=== PATIENT | female | born 1965 | race Caucasian/White ===

== ENCOUNTER → 2019-05-15 12:29 | Outpatient (CLI) | payer BC, SELFPAY ==
--- NOTE | 2019-05-15 12:39 | XR_ITS ---
PROCEDURE: XR RIBS LT MIN 3V W CXR1V CLINICAL INDICATION: LT RIB PAIN Chronic coughing with left rib pain COMPARISON: No exams were available for comparison FINDINGS: Unremarkable cardiovascular structures. There is mild biapical pleural thickening. There is a nondisplaced fracture involving the anterolateral aspect of the left 7th rib. No other abnormalities are apparent. IMPRESSION: Nondisplaced fracture left 7th rib Dictated by: Raul Jackson MD 05/15/2019 13:39 Electronically signed by Raul Jackson MD in [place] 05/15/2019 13:39
== END ==
PROVIDERS: PCP Nurse Practitioner; Visit Provider Nurse Practitioner
DX: R07.81 Pleurodynia (principal)
CPT/HCPCS: 71101

== ENCOUNTER → 2019-07-28 12:17 | Outpatient (CLI) | payer BC, SELFPAY ==
--- NOTE | 2019-07-28 12:21 | CA_ITS ---
APPROVED REPORT Bilateral Lower Extremity Venous Study for DVT. Battery Wrecker Operator: KEVIN Indications Lower Extremity Pain: PAIN Vein Imaging CFV (L): compressive, spontaneous, phasic, augmentation SFJ (L): compressive, spontaneous, phasic, augmentation FEM (L): compressive, spontaneous, phasic, augmentation POP (L): compressive, spontaneous, phasic, augmentation DFV (L): compressive, spontaneous, phasic, augmentation PTV (L): compressive, spontaneous, phasic, augmentation GSV (L): Compressible Findings No evidence of DVT or superficial thrombophlebitis in the veins scanned of the left lower extremity. Reported to Yuridia's office Conclusion No evidence of DVT or superficial thrombophlebitis in the veins scanned of the left lower extremity. Electronically signed by : Raul Jackson MD 07/28/2019 15:45:29
== END ==
PROVIDERS: PCP Family Medicine; Visit Provider Family Medicine
DX: M79.605 Pain in left leg (principal)
CPT/HCPCS: 93971

== ENCOUNTER → 2019-08-27 12:28 | Outpatient (CLI) | payer BC, SELFPAY ==
--- NOTE | 2019-08-27 12:35 | XR_ITS ---
PROCEDURE: XR KNEE LT 3V CLINICAL INDICATION: ACUTE LT KNEE PAIN COMPARISON: No exams were available for comparison FINDINGS: No fracture or dislocation. No lytic or blastic change. There is normal mineralization. There is minimal decrease in the joint space medially suggesting minimal osteoarthritic change. Minimal spurring noted of the superior patella Other findings:None. IMPRESSION: Minimal osteoarthritic change Dictated by: Raul Jackson MD 08/27/2019 15:41 Electronically signed by Raul Jackson MD in [facility] 08/27/2019 15:41
== END ==
PROVIDERS: PCP Family Medicine; Visit Provider Family Medicine
DX: M25.562 Pain in left knee (principal)
CPT/HCPCS: 73562

== ENCOUNTER → 2019-09-19 12:24 | Outpatient (CLI) | payer BC, SELFPAY ==
--- NOTE | 2019-09-19 12:29 | XR_ITS ---
PROCEDURE: XR KNEE LT 4V CLINICAL INDICATION: knee pain COMPARISON: XR KNEE LT 3V from 08/27/2019 FINDINGS: No fracture or dislocation. No lytic or blastic change. There is normal mineralization. There is minimal spurring of the patella posteriorly and superiorly and slight decrease in the joint space medially. Other findings:There may be a small suprapatellar effusion IMPRESSION: Minimal osteoarthritic changes with possible small knee joint effusion Dictated by: Raul Jackson MD 09/19/2019 13:04 Electronically signed by Raul Jackson MD in [facility] 09/19/2019 13:04
== END ==
PROVIDERS: PCP Family Medicine; Visit Provider Orthopaedic Surgery
DX: M25.562 Pain in left knee (principal)
CPT/HCPCS: 73564

== ENCOUNTER → 2020-04-30 15:11 | Outpatient (CLI) | payer BC, SELFPAY ==
--- NOTE | 2020-04-30 15:16 | CA_ITS ---
APPROVED REPORT Left Lower Extremity Venous Study for DVT. Bushing Press Operator: Padmini Willis RVT Indications Lower Extremity Pain: Left Current Smoker PAIN BACK OF LEFT KNEE Risk Factors Current Smoker Vein Imaging CFV (L): compressive, spontaneous, phasic, augmentation FEM (L): compressive, spontaneous, phasic, augmentation POP (L): compressive, spontaneous, phasic, augmentation PTV (L): Compressible GSV (L): Compressible Peroneals (L):Compressible GAS (L): Compressible Findings Study suggests no evidence of DVT of the left lower extremity. Study suggests no evidence of SVT of the left lower extremity. 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 Conclusion Study suggests no evidence of DVT of the left lower extremity. Study suggests no evidence of SVT of the left lower extremity. 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 Critical Notification Physician Notified Date: 04/30/2020 Time: 15:47 Physician Name: Sherlyn Doss Electronically signed by : Raul Jackson MD 04/30/2020 17:30:07
== END ==
PROVIDERS: PCP Family Medicine; Visit Provider Nurse Practitioner
DX: M25.562 Pain in left knee (principal)
CPT/HCPCS: 93971

== ENCOUNTER → 2020-08-17 12:22 | Outpatient (CLI) | payer BC, SELFPAY ==
--- NOTE | 2020-08-17 12:30 | XR_ITS ---
PROCEDURE: XR CHEST PORTABLE CLINICAL HISTORY: COVID SCREENING COMPARISON: CR XR RIBS LT MIN 3V W CXR1V from 05/15/2019 CR XR CHEST 2V from 07/19/2019 FINDINGS: The cardiomediastinal silhouette and pulmonary vascularity are within normal limits. COPD with biapical fibrotic changes. No lobar consolidation. No acute bony abnormalities. IMPRESSION: COPD with chronic changes, no acute finding Dictated by: Raul Jackson MD 08/17/2020 14:58 Raul Jackson MD in [facility] 08/17/2020 14:58
[2020-08-17 13:58] LABS: Basophils % 0.5 % (0.1-2.0); Eosinophils # 0.1 K/mm3 (0.0-0.4); Eosinophils % 0.8 % (0.1-12.0); Hematocrit 43.2 % (37.0-47.0); Lymphocytes # 1.1 K/mm3 (0.7-4.5); Lymphocytes % 17.6 % (10-50); Mean Corpuscular HGB Conc 32.5 g/dL (31.8-35.4); Mean Corpuscular Hemoglobin 29.6 pg (27.0-31.2); Mean Corpuscular Volume 91.1 fl (81-99); Mean Platelet Volume 8.2 fl (7.4-10.4); Monocytes # 0.4 K/mm3 (0.1-1.0); Monocytes % 6.4 % (1.7-9.3); Neutrophils # 4.5 K/mm3 (1.8-7.8); Neutrophils % 74.6 % (37.0-80.0); Platelet Count 256 K/mm3 (142-424); Red Blood Count 4.74 M/mm3 (4.20-5.40); Red Cell Distribution Width 14.3 % (11.5-17.5)
[2020-08-18 11:09] LABS: Covid-19 Nasal PCR Sendout P&C Negative
== END ==
PROVIDERS: PCP Family Medicine; Visit Provider Nurse Practitioner
DX: Z20.822 Contact with and (suspected) exposure to COVID-19 (principal); J44.9 Chronic obstructive pulmonary disease, unspecified
CPT/HCPCS: 36415; 71045; 85025; 87275; 87276; U0004

== ENCOUNTER 2021-04-02 12:09 | Inpatient (IN) | payer BC, SELFPAY ==
[2021-04-02] VITALS (26 sets, daily range): BP systolic 96–155; BP diastolic 49–89; PULSE 74–126; RESP 14–22; TEMP 36.3–43; O2SAT 95–100; BMI 19.3
--- NOTE | 2021-04-02 13:05 | CT_ITS ---
PROCEDURE INFORMATION: Exam: CT Abdomen And Pelvis With Contrast Exam date and time: 04/02/2021 1:05 PM Age: 56 years old Clinical indication: Abdominal pain; Tenderness; Lower; Patient HX: Only surgery is gallbladder TECHNIQUE: Imaging protocol: Computed tomography of the abdomen and pelvis with contrast. Radiation optimization: All CT scans at this facility use at least one of these dose optimization techniques: automated exposure control; mA and/or kV adjustment per patient size (includes targeted exams where dose is matched to clinical indication); or iterative reconstruction. Contrast material: ISOVUE; Contrast volume: 75 ml; Contrast route: IV; COMPARISON: CR XR CHEST PORTABLE 08/17/2020 1:20 PM FINDINGS: Lungs: Several calcified pulmonary granulomas are present. Liver: No mass. Gallbladder and bile ducts: Cholecystectomy changes. No biliary ductal dilation. Pancreas: No ductal dilation. Spleen: Multiple splenic parenchymal calcifications, likely from old granulomatous disease. Adrenal glands: No mass. Kidneys and ureters: Multifocal renal parenchymal scarring and small cysts, which are too small to characterize. No hydronephrosis. Stomach and bowel: Thickening and irregularity of the kowalski of the ascending colon, potentially the site of bowel perforation given immediately adjacent pneumoperitoneum (series 3, image 58). Multiple borderline distended fluid-filled loops of small bowel measuring up to 3 cm. Appendix: No evidence of appendicitis. Intraperitoneal space: Moderate volume free fluid layering in the pelvis. Small volume pneumoperitoneum. Vasculature: Moderate aortic and branch vessel atherosclerosis. Lymph nodes: No enlarged lymph nodes. Urinary bladder: Markedly distended urinary bladder. Reproductive: Unremarkable as visualized. Bones/joints: No acute fracture. Soft tissues: Unremarkable. IMPRESSION: 1. Small volume pneumoperitoneum concerning for bowel perforation. There is thickening and irregularity of the kowalski of the ascending colon, potentially the donor site, with immediately adjacent pneumoperitoneum. This colonic wall thickening may be secondary to colitis or an underlying mass. Recommend surgery consult. 2. Markedly distended urinary bladder. 3. Borderline dilated small bowel, likely reactive ileus. COMMENTS: Consistent with the [employer]'s Incidental Findings Committee white paper (J Am Salena Radiol 2018): Any incidental renal lesion less than 1 cm or classified as too small to characterize, or any incidental cystic renal lesion characterized as simple-appearing, is likely benign. No follow-up imaging is recommended for these lesions per consensus recommendations based on imaging criteria.
[2021-04-02 13:16] LABS: Basophils % 0.1 % (0.1-2.0); Eosinophils % 0.3 % (0.1-12.0); Lymphocytes # 0.5 K/mm3 (0.7-4.5); Lymphocytes % 3.9 % (10-50); Mean Corpuscular Hemoglobin 21.3 pg (27.0-31.2); Mean Corpuscular Volume 73.5 fl (81-99); Mean Platelet Volume 7.5 fl (7.4-10.4); Monocytes # 0.2 K/mm3 (0.1-1.0); Monocytes % 1.4 % (1.7-9.3); Neutrophils # 13.1 K/mm3 (1.8-7.8); Neutrophils % 94.4 % (37.0-80.0); Platelet Count 473 K/mm3 (142-424); Red Blood Count 4.21 M/mm3 (4.20-5.40); Red Cell Distribution Width 16.4 % (11.5-17.5); White Blood Count 13.9 K/mm3 (4.8-10.8)
[2021-04-02 13:18] LABS: Chloride 106 mmol/L (98-107); MANUAL DIFFERENTIAL MANUAL DIFFERENTIAL (MANUAL DIFF); Potassium 3.5 mmoL/L (3.5-5.1); Sodium 139 mmol/L (136-145)
[2021-04-02 13:20] LABS: Alanine Aminotransferase 15 U/L (12-78); Blood Urea Nitrogen 16 mg/dl (7-17); Estimated Glomerular Filt Rate 128 ml/min (>60); GFR (African American) 155 ML/MIN (>60)
[2021-04-02 13:21] LABS: Albumin Level 3.7 g/dl (3.5-5.0); Albumin/Globulin Ratio 1.3 (1.1-1.8); Alkaline Phosphatase 133 U/L (38-126); Anion Gap 12.5 mEq/L (5-15); Aspartate Amino Transferase 36 U/L (14-36); Bilirubin,Total 0.6 mg/dl (0.2-1.3); Calcium 8.7 mg/dl (8.4-10.2); Carbon Dioxide 24 mmol/L (22.0-30.0); Globulin 2.9 g/dL (1.3-3.2); Glucose 159 mg/dl (74-100); Lipase 16 U/L (23-300); Total Protein,Serum 6.6 g/dl (6.3-8.2)
[2021-04-02 13:24] LABS: HCG Qualitative, Serum Negative (Negative); Lactic Acid 1.7 mmol/L (0.7-2.1)
[2021-04-02 13:33] LABS: Acanthocytes 1+; Anisocytosis 1+; Hypochromasia 2+; Lymphocytes % 9 % (10-50); Microcytosis 1+; Monocytes % 2 % (2-9); Neutrophils % 89 % (42-76); Platelet Estimate Slight Increase; Poikilocytosis 2+; Stomatocytes 1+; Total Cells Counted 100
--- NOTE | 2021-04-02 15:18 | PC.NURSE ---
SHARMIN FITCH speaking with GUSTABO
--- NOTE | 2021-04-02 15:31 | HMH.EDGENADL ---
ED Disposition Clinical Impression: Colon perforation Disposition: Admitted As Inpatient Condition on Discharge: Critical - Critical Care Critical Care Time: Yes Attestation: On 04/02/21, the high probability of a clinically significant, sudden or life threatening deterioration of the following system(s) required my full and direct attention, intervention and personal management. The time I documented below is in addition to time spent performing reported procedures but includes the following listed in this critical care notation. Total Critical Care Time: 30 Vital system(s) involved:: Metabolic Failure My critical care processes included: Assessment & monitoring of V/S, Initial and Re-exams, Data Review/Interpretation, Coordinating Care, Medication Orders and management, Documentation Medical Decision Making - Medical Records Medical records reviewed: Yes: I reviewed the patient's medical records. - Nadeem Inquiry Pt receiving controlled substance: No Vital Signs: 04/02/21 13:21 04/02/21 14:00 04/02/21 14:30 Temperature 100.4 F H Temperature Source Oral Pulse Rate 114 H 116 H Pulse Rate [Left Radial] 118 H Respiratory Rate 20 20 22 Blood Pressure 133/73 117/71 Blood Pressure [Right Arm] 130/74 Blood Pressure Mean 92 87 Blood Pressure Mean [Right Arm] 92 Blood Pressure Source Blood Pressure Source [Right Arm] Automatic Cuff Blood Pressure Position Blood Pressure Position [Right Arm] Sitting 02 Sat by Pulse Oximetry 98 100 97 Oxygen Delivery Method Room Air 04/02/21 15:41 04/02/21 16:00 04/02/21 16:31 Temperature Temperature Source Pulse Rate 74 125 H 119 H Pulse Rate [Left Radial] Respiratory Rate Blood Pressure 123/75 123/67 114/49 L Blood Pressure [Right Arm] Blood Pressure Mean 91 98 71 Blood Pressure Mean [Right Arm] Blood Pressure Source Blood Pressure Source [Right Arm] Blood Pressure Position Blood Pressure Position [Right Arm] 02 Sat by Pulse Oximetry 95 95 97 Oxygen Delivery Method 04/02/21 17:00 04/02/21 17:30 04/02/21 17:46 Temperature Temperature Source Pulse Rate 118 H 115 H 115 H Pulse Rate [Left Radial] Respiratory Rate Blood Pressure 110/61 96/53 L 106/54 L Blood Pressure [Right Arm] Blood Pressure Mean 71 67 66 Blood Pressure Mean [Right Arm] Blood Pressure Source Blood Pressure Source [Right Arm] Blood Pressure Position Blood Pressure Position [Right Arm] 02 Sat by Pulse Oximetry 98 96 96 Oxygen Delivery Method 04/02/21 18:00 04/02/21 18:37 Temperature 100.4 F H Temperature Source Oral Pulse Rate 113 H 116 H Pulse Rate [Left Radial] Respiratory Rate 22 Blood Pressure 96/58 L 117/71 Blood Pressure [Right Arm] Blood Pressure Mean 66 Blood Pressure Mean [Right Arm] Blood Pressure Source Automatic Cuff Blood Pressure Source [Right Arm] Blood Pressure Position Sitting Blood Pressure Position [Right Arm] 02 Sat by Pulse Oximetry 96 Oxygen Delivery Method - Lab Data Lab Results 04/02/21 13:00: WBC 13.9 H, RBC 4.21, Hgb 9.0 L, Hct 31.0 L, MCV 73.5 L, MCH 21.3 L, MCHC 29.0 L, RDW 16.4, Plt Count 473 H, MPV 7.5, Neut % (Auto) 94.4 H, Lymph % (Auto) 3.9 L, Graves % (Auto) 1.4 L, Eos % (Auto) 0.3, Baso % (Auto) 0.1, Neut # (Auto) 13.1 H, Lymph # (Auto) 0.5 L, Graves # (Auto) 0.2, Eos # (Auto) 0.0, Baso # (Auto) 0.0, Total Counted 100, Neutrophils % (Manual) 89 H, Lymphocytes % (Manual) 9 L, Monocytes % (Manual) 2, Platelet Estimate Slight increase, Hypochromasia 2+, Poikilocytosis 2+, Anisocytosis 1+, Microcytosis 1+, Stomatocytes 1+, Acanthocytes (Spur) 1+ 04/02/21 13:00: Sodium 139, Potassium 3.5, Chloride 106, Carbon Dioxide 24, Anion Gap 12.5, BUN 16, Creatinine 0.50 L, Estimated GFR 128, Est GFR ( Amer) 155, Glucose 159 H, Calcium 8.7, Total Bilirubin 0.6, AST 36, ALT 15, Alkaline Phosphatase 133 H, Total Protein 6.6, Albumin 3.7, Globulin 2.9, Albumin/Glob
[2021-04-02 15:46] LABS: Coronavirus 19, PCR Not Detected (NotDetected); Influenza A, PCR Not Detected (NotDetected); Influenza B, PCR Not Detected (NotDetected)
[2021-04-02 15:56] LABS: Microscopic, Urine URINE MICROSCOPIC (MICROSCOPIC)
[2021-04-02 16:07] LABS: Appearance,Urine CLEAR (Clear); Bilirubin,Urine Negative (Negative); Blood, Urine Negative (Negative); Color,Urine YELLOW (Yellow); Glucose,Urine (UA) Negative (Negative); Ketones,Urine Negative (Negative); Leukocyte Esterase,Urine Negative (Negative); Nitrate,Urine Negative (Negative); Protein,Urine Negative (Negative); Urobilinogen,Urine 0.2 EU/dl (0.2)
--- NOTE | 2021-04-02 16:20 | PC.NURSE ---
2291 BED ASSIGNMENT REQUESTED, ROOM 217. ALL STAFF NOTIFIED
[2021-04-02 16:25] LABS: Squamous Epithelial Cell,Urine Occasional #/hpf (0-5)
--- NOTE | 2021-04-02 17:30 | HMH.GSCON ---
*Admission Date: 04/02/21 *Reason for consult:: Perforated colon *History of present illness: This is a 56-year-old female seen in consultation after evaluation in the emergency department. She presented with increasing abdominal pain. She had radiographic evidence consistent with likely perforation of the ascending colon. She was also found to have fairly severe urinary retention/bladder distention. Surgical service was consulted for evaluation and management. Please see HPI from emergency department evaluation forwarded below. HPI from emergency department evaluation: Patient presents the ED today is a 56-year-old female, complaining of right lower quadrant and diffuse abdominal pain. Patient states she has never had pain like this before, states that she has been otherwise healthy, states that this pain started yesterday evening, but has gotten much worse. Patient states that she has not been constipated, is not having any issues with diarrhea, nausea or vomiting, states that she is not having any issues with urination no burning when she pees, states that she smokes. Describes severe right lower quadrant and right upper quadrant and periumbilical abdominal pain. Review of Systems - Constitutional Denies chills - Eyes Denies change in vision - ENT Denies difficulty swallowing - *Cardiovascular Denies chest pain - *Respiratory Denies cough - *Gastrointestinal Reports abdominal pain, Reports nausea - *Musculoskeletal Denies deformity - Integumentary/Breasts Denies new lesions - *Neurologic Denies abnormal movements, Denies abnormal speech - Hematologic/Lymphatic Denies easy bleeding [facility] History Medical History: Reports:: Chronic Obstructive Pulmonary Disease (COPD) *Have you ever received a pneumonia vaccine?: No *Have you received a flu vaccine this season?: No Other Surgeries: Yes: Other - *Social History Smoking Status: Current every day smoker Tobacco Type: cigarettes # Packs/Day (cigarettes): 1 Alcohol Intake: never *Occupational Status:: other *Travel in the last 8 weeks: None Family Hx:: No significant family history Meds Home Medications Medication Instructions Recorded Confirmed Type Albuterol Sulfate [Albuterol 2 puff IH Q6HP PRN 04/02/21 04/02/21 History Sulfate Hfa] Cetirizine HCl 10 mg PO DAILY 04/02/21 04/02/21 History Quetiapine Fumarate [Seroquel 50 50 mg PO QPMWITHMEAL 04/02/21 04/02/21 History mg Tablets] Allergies Allergy/AdvReac Type Severity Reaction Status Date / Time No Known Allergies Allergy Verified 09/19/19 13:45 Exam Vital signs and Labs for Last 24 Hours: Temp Pulse Resp BP Pulse Ox 100.4 F H 116 H 22 117/71 97 04/02/21 13:21 04/02/21 14:30 04/02/21 14:30 04/02/21 14:30 04/02/21 14:30 Laboratory Results - last 24 hr 04/02/21 13:00: WBC 13.9 H, RBC 4.21, Hgb 9.0 L, Hct 31.0 L, MCV 73.5 L, MCH 21.3 L, MCHC 29.0 L, RDW 16.4, Plt Count 473 H, MPV 7.5, Neut % (Auto) 94.4 H, Lymph % (Auto) 3.9 L, [place] % (Auto) 1.4 L, Eos % (Auto) 0.3, Baso % (Auto) 0.1, Neut # (Auto) 13.1 H, Lymph # (Auto) 0.5 L, [place] # (Auto) 0.2, Eos # (Auto) 0.0, Baso # (Auto) 0.0, Total Counted 100, Neutrophils % (Manual) 89 H, Lymphocytes % (Manual) 9 L, Monocytes % (Manual) 2, Platelet Estimate Slight increase, Hypochromasia 2+, Poikilocytosis 2+, Anisocytosis 1+, Microcytosis 1+, Stomatocytes 1+, Acanthocytes (Spur) 1+ 04/02/21 13:00: Sodium 139, Potassium 3.5, Chloride 106, Carbon Dioxide 24, Anion Gap 12.5, BUN 16, Creatinine 0.50 L, Estimated GFR 128, Est GFR ( Amer) 155, Glucose 159 H, Calcium 8.7, Total Bilirubin 0.6, AST 36, ALT 15, Alkaline Phosphatase 133 H, Total Protein 6.6, Albumin 3.7, Globulin 2.9, Albumin/Globulin Ratio 1.3, Lipase 16 L 04/02/21 13:00: Lactate 1.7 04/02/21 13:00: Serum HCG, Qual Negative 04/02/21 15:40: SARS-CoV-2 (PCR) Not detected, Influenza A Untype (PCR) Not detected, Influenza Type B (PCR) Not detected 04/02/21 1
--- NOTE | 2021-04-02 19:56 | HMH.ANESCL ---
[facility] Anesthesia Checklist - Structural Data Admitted From: Emergency Dept Planned Operative Procedure/s: exp laparotomy Consent for Planned Operative Procedure(s) Verified: Yes - Airway Assessment C-Spine Mobility Assessed: Yes TMJ Mobility Assessed: Yes Dentition: Edentulous - Neurological Assessment Level of Consciousness: Awake, Alert, Appropriate - Anesthesia Plan Anesthesia Risk discussed: Yes Anesthesia Plan: Verified ASA Class: III Anesthesia Type: General - Preoperative Comments Pre-Operative Comments: emergency [facility] History I have reviewed the patient's past medical history: Yes Medical History: Reports:: Chronic Obstructive Pulmonary Disease (COPD) *Have you ever received a pneumonia vaccine?: No *Have you received a flu vaccine this season?: No Anesthesia experience/problems:: none Other Surgeries: Yes: Other - *Social History Smoking Status: Current every day smoker Tobacco Type: cigarettes # Packs/Day (cigarettes): 1 Alcohol Intake: never Substance Use Type: denies use *Occupational Status:: other *Travel in the last 8 weeks: None Family Hx:: No significant family history
--- NOTE | 2021-04-02 21:09 | HMH.OPNOTE ---
Date of procedure: 04/02/21 Pre-op Diagnosis:: Free air Abnormal right colon per CT scan Urinary bladder distention Post-op Diagnosis:: Same with the addition of the following: Likely perforated right colon cancer Procedure performed:: Exploratory laparotomy Right colectomy Partial small bowel resection Surgeon:: Gasper Small MD TECHNICAL SERVICES COORDINATOR:: Rl Chavez Anesthesia: GETA Estimated blood loss (mL): 200 Operative findings:: Severe thickening along the midportion of the ascending colon Perforation at central portion of thickened right colon Enlarged pericolonic lymph nodes Massive distention and thickening of urinary bladder Operative note:: After informed consent was obtained the patient was taken to the operating room and placed in the supine position. General anesthesia was induced and her abdomen was prepped and draped in a sterile fashion. A midline laparotomy incision was made with a combination of scalpel and electrocautery. The abdomen was carefully entered in the epigastric region. The incision was extended to below the umbilicus. Massive enlargement and thickening of the urinary bladder was immediately encountered. This was apparent even with Lowry catheter decompression. The small bowel and colon were severely displaced by the distended bladder. Dissection was very difficult secondary to the above findings. Cloudy fluid was noted throughout the right gutter. This was carefully evacuated. Palpation revealed severe thickening of the ascending colon with obvious perforation along the mid right colon. The colon was carefully elevated as the right lateral attachments were taken down with a combination of blunt dissection and electrocautery. The mass lesion had the appearance and overall palpable firmness consistent with perforated colon cancer. Although the mass encroached upon the retroperitoneal space to include the duodenum and ureter, no obvious involvement of these structures was noted. A transection site along the transverse colon and at the terminal ileum were carefully elevated. The linear 75mm stapler was utilized to transect at these sites. A combination of sharp dissection, blunt dissection, dissection with the Enseal device, and clamp/cut/tie with suture ligation was utilized to take down the intervening mesentery. Enlarged firm lymph nodes were encountered. These were taken with the specimen. Some additional large/firm lymph nodes were also noted to be encroaching upon the venous drainage from the distal ileum. A small portion of the distal ileum was carefully elevated. After small bowel transection with the linear stapler the intervening mesentery was taken with the Enseal device. This additional portion of distal ileum was resected to help ensure adequate blood flow to and from the remaining small bowel/anastomosis. The transverse colon and ileum were brought into [id number] apposition. The 75mm linear stapler was utilized to create a common otomy which was then closed with the TX 60. The crotch was imbricated with Nurolon. 3-0 Nurolon was also utilized to imbricate the TX device staple margin. The mesenteric defect was reapproximated with running 3-0 Vicryl. The abdominal cavity was thoroughly irrigated with particular attention to the right gutter. No active bleeding or sign of injury was noted. Fascia was closed with #2 Novafil. Skin was then reapproximated with a combination of td and 4-0 nylon with 2 small areas packed open. Dressing were applied and the patient was transferred to recovery after extubation. Condition: stable Disposition: PACU Specimens:: Right colon Distal small bowel Complications:: No immediate
--- NOTE | 2021-04-02 21:43 | P.PN_ITS ---
[facility] Anesthesia Record Part I Intake, IV Amount: 4,000 Estimated blood loss (mL): 200 Urine output (mL): 350 Blood Pressure: 155/74 SaO2: 100 Pulse Rate: 114 Respiratory Rate: 16 Temperature: 97.9 F Patient is:: Drowsy, Stable Stable to PACU at:: 21:40
--- NOTE | 2021-04-02 22:34 | PC.NURSE ---
PT ARRIVED TO FLOOR VIA BED FROM OR W/STAFF AT 2233
[2021-04-03] VITALS (32 sets, daily range): BP systolic 97–128; BP diastolic 55–84; PULSE 70–100; RESP 12–18; TEMP 36.3–37.2; O2SAT 88–98; BMI 19.6
[2021-04-03 06:14] LABS: Eosinophils % 0.1 % (0.1-12.0); Lymphocytes # 0.6 K/mm3 (0.7-4.5); Monocytes # 0.3 K/mm3 (0.1-1.0); Neutrophils # 8.8 K/mm3 (1.8-7.8); White Blood Count 9.7 K/mm3 (4.8-10.8)
[2021-04-03 06:27] LABS: Basophils % 0.1 % (0.1-2.0); Lymphocytes % 5.9 % (10-50); Mean Corpuscular HGB Conc 27.9 g/dL (31.8-35.4); Mean Corpuscular Volume 75.2 fl (81-99); Mean Platelet Volume 7.9 fl (7.4-10.4); Monocytes % 2.7 % (1.7-9.3); Neutrophils % 91.3 % (37.0-80.0); Platelet Count 325 K/mm3 (142-424); Red Blood Count 3.23 M/mm3 (4.20-5.40); Red Cell Distribution Width 16.6 % (11.5-17.5)
[2021-04-03 06:31] LABS: Anion Gap 9.4 mEq/L (5-15); Blood Urea Nitrogen 17 mg/dl (7-17); Calcium 7.9 mg/dl (8.4-10.2); Carbon Dioxide 27 mmol/L (22.0-30.0); Chloride 106 mmol/L (98-107); Creatinine Clearance Estimated 111 mL/min (50-200); Estimated Glomerular Filt Rate 128 ml/min (>60); GFR (African American) 155 ML/MIN (>60); Glucose 137 mg/dl (74-100); Potassium 4.4 mmoL/L (3.5-5.1); Sodium 138 mmol/L (136-145)
[2021-04-03 06:40] LABS: Hematocrit 24.3 % (37.0-47.0); Hemoglobin 6.8 g/dL (12.2-16.2); MANUAL DIFFERENTIAL MANUAL DIFFERENTIAL (MANUAL DIFF)
--- NOTE | 2021-04-03 06:44 | PC.NURSE ---
Patient arrived on floor from OR at 2233; has rested most of this shift; EVP AND CHIEF OPERATING OFFICER pump has been set up and patient has been educated on how to use as well as has been advised that she is the only person to push button to administer pain medication. Patient has maintained O2 sats in 90's on 2L NC with respirations approximately 14 throughout the night. Dressing is c/d/i with no drainage showing through. Shows no s/s of acute distress noted at this time, call light within reach, bed at lowest level for safety; will continue to monitor.
[2021-04-03 06:53] LABS: Anisocytosis 1+; Eosinophils % 1 % (0-3); Lymphocytes % 3 % (10-50); Microcytosis 2+; Monocytes % 1 % (2-9); Neutrophils % 85 % (42-76); Platelet Estimate Normal; Total Cells Counted 100
[2021-04-03 06:54] LABS: Hypochromasia 3+; Poikilocytosis 2+
--- NOTE | 2021-04-03 08:04 | PC.NURSE ---
OFFICE CLINICIAN pump Morphine 1mg/10mins PRN total administered this shift 21mg
--- NOTE | 2021-04-03 08:29 | P.CONPHA_ITS ---
[facility] Pharm[facility] VTE Monitoring - Patient Demographics Admission date: 04/02/21 Report Date: 04/03/21 Time: 08:29 Allergies/Adverse Reactions: Patient Allergies No Known Allergies Allergy (Verified 09/19/19 13:45) Height: 1.68 m Weight: 55.395 kg Patient Problems: Current Active Problems Colon perforation (Acute) Urinary retention (Acute) COPD (chronic obstructive pulmonary disease) (Acute) Colon perforation (Acute) - VTE Risk Labs: VTE Related Lab Results Hgb 6.8 g/dL (12.2-16.2) L* D 04/03/21 05:26 Hct 24.3 % (37.0-47.0) L 04/03/21 05:26 Plt Count 325 K/mm3 (142-424) D 04/03/21 05:26 BUN 17 mg/dl (7-17) 04/03/21 05:26 Creatinine 0.50 mg/dl (0.52-1.04) L 04/03/21 05:26 Estimated Creat Clear 111 mL/min (50-200) 04/03/21 05:26 Clinical Trial Participant: No - Prophylaxis VTE Prophylaxis Ordered?: Yes Types of VTE Prophylaxis: TEDS Knee High Location of Applied Device: Bilateral Lower Extremeties Pharmacologic Type: Enoxaparin
--- NOTE | 2021-04-03 08:30 | HMH.PHAINT ---
MEDICATION RECONCILIATION COMPLETE USING EXTERNAL PHARMACY FILL HISTORY.
--- NOTE | 2021-04-03 08:58 | HMH.GSPN ---
Subjective Narrative: She is currently resting. 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 Progress Note: A&P (1) Colon perforation Status: Acute Assessment and plan: Overall, fairly stable status post depilatory laparotomy with right colectomy. Ambulate Dilaudid for breakthrough pain (2) Urinary retention Status: Acute Assessment and plan: Massively enlarged/thickened bladder noted intraoperatively. Urology consultation pending Maintain Lowry for now (3) COPD (chronic obstructive pulmonary disease) Status: Acute Exam Vital signs and Labs for Last 24 Hours: Temp Pulse Resp BP Pulse Ox 98.7 F 100 H 14 103/68 L 95 04/03/21 08:00 04/03/21 08:00 04/03/21 07:08 04/03/21 07:08 04/03/21 07:08 Laboratory Results - last 24 hr 04/02/21 13:00: WBC 13.9 H, RBC 4.21, Hgb 9.0 L, Hct 31.0 L, MCV 73.5 L, MCH 21.3 L, MCHC 29.0 L, RDW 16.4, Plt Count 473 H, MPV 7.5, Neut % (Auto) 94.4 H, Lymph % (Auto) 3.9 L, [place] % (Auto) 1.4 L, Eos % (Auto) 0.3, Baso % (Auto) 0.1, Neut # (Auto) 13.1 H, Lymph # (Auto) 0.5 L, [place] # (Auto) 0.2, Eos # (Auto) 0.0, Baso # (Auto) 0.0, Total Counted 100, Neutrophils % (Manual) 89 H, Lymphocytes % (Manual) 9 L, Monocytes % (Manual) 2, Platelet Estimate Slight increase, Hypochromasia 2+, Poikilocytosis 2+, Anisocytosis 1+, Microcytosis 1+, Stomatocytes 1+, Acanthocytes (Spur) 1+ 04/02/21 13:00: Sodium 139, Potassium 3.5, Chloride 106, Carbon Dioxide 24, Anion Gap 12.5, BUN 16, Creatinine 0.50 L, Estimated GFR 128, Est GFR ( Amer) 155, Glucose 159 H, Calcium 8.7, Total Bilirubin 0.6, AST 36, ALT 15, Alkaline Phosphatase 133 H, Total Protein 6.6, Albumin 3.7, Globulin 2.9, Albumin/Globulin Ratio 1.3, Lipase 16 L 04/02/21 13:00: Lactate 1.7 04/02/21 13:00: Serum HCG, Qual Negative 04/02/21 15:40: SARS-CoV-2 (PCR) Not detected, Influenza A Untype (PCR) Not detected, Influenza Type B (PCR) Not detected 04/02/21 15:53: Urine Color Yellow, Urine Appearance Clear, Urine pH 7.0, Ur Specific [place] 1.010, Urine Protein Negative, Urine Glucose (UA) Negative, Urine Ketones Negative, Urine Blood Negative, Urine Nitrate Negative, Urine Bilirubin Negative, Urine Urobilinogen 0.2, Ur Leukocyte Esterase Negative, Urine RBC None, Urine WBC None, Ur Squamous Epith Cells Occasional, Urine Bacteria None 04/03/21 05:26: WBC 9.7 D, RBC 3.23 L, Hgb 6.8 L* D, Hct 24.3 L, MCV 75.2 L, MCH 21.0 L, MCHC 27.9 L, RDW 16.6, Plt Count 325 D, MPV 7.9, Neut % (Auto) 91.3 H, Lymph % (Auto) 5.9 L, [place] % (Auto) 2.7, Eos % (Auto) 0.1, Baso % (Auto) 0.1, Neut # (Auto) 8.8 H, Lymph # (Auto) 0.6 L, [place] # (Auto) 0.3, Eos # (Auto) 0.0, Baso # (Auto) 0.0, Total Counted 100, Neutrophils % (Manual) 85 H, Band Neutrophils % 10.0 H, Lymphocytes % (Manual) 3 L, Monocytes % (Manual) 1 L, Eosinophils % (Manual) 1, Platelet Estimate Normal, Hypochromasia 3+, Poikilocytosis 2+, Anisocytosis 1+, Microcytosis 2+ 04/03/21 05:26: Sodium 138, Potassium 4.4 D, Chloride 106, Carbon Dioxide 27, Anion Gap 9.4, BUN 17, Creatinine 0.50 L, Estimated Creat Clear 111, Estimated GFR 128, Est GFR ( Amer) 155, Glucose 137 H, Calcium 7.9 L I & O for Last 24 hours: Intake & Output 0904/01/21 04/02/21 04/03/21 11:59 11:59 11:59 11:59 Intake Total 5050 / 5050 Output Total 975 / 975 Balance 4075 / 4075 Weight 122 lb 2 oz - Constitutional no acute distress - *Routine Respiratory Exam Absent: respiratory distress - *Routine Cardiovascular Exam Comments: Mildly tachycardic - *Routine Abdominal Exam Comments: Dressing in place
--- NOTE | 2021-04-03 09:07 | HMH.HP ---
*Admission Date: 04/02/21 *Chief complaint: Abdominal pain *History of present illness: Sharon is a 56-year-old white female with a history of COPD who presented to the emergency room yesterday with a 2-week history of worsening abdominal pain. She she thought she was simply constipated but when the pain became severe yesterday she came to the ER. She has had no nausea or vomiting. She cannot recall her last bowel movement. She has no history of GI problems. She was evaluated in the ER. CT scan of the abdomen and pelvis showed a pneumoperitoneum with suspicion for carcinoma of the ascending colon with perforation. She was also noted to have a massively distended urinary bladder but she denied any urinary symptoms. Dr. Small was consulted from the ER and took the patient to surgery last evening where she underwent exploratory laparotomy, right colectomy, and small bowel resection. Gross surgical findings were apparently consistent with colon cancer. She has done well postoperatively. This morning she is complaining of breakthrough pain with the SERVER SUPPORT TECHNICIAN pump. Denies shortness of breath. No nausea or vomiting. [facility] History Medical History: Reports:: Chronic Obstructive Pulmonary Disease (COPD) *Have you ever received a pneumonia vaccine?: No *Have you received a flu vaccine this season?: No Other Medical History: Reports: Other (Depression with anxiety) Anesthesia experience/problems:: none Other Surgeries: Yes: Cholecystectomy (2006 - Laparoscopic) - *Social History Smoking Status: Current every day smoker Tobacco Type: cigarettes # Packs/Day (cigarettes): 1 Alcohol Intake: never Substance Use Type: denies use *Occupational Status:: employed *Travel in the last 8 weeks: None Family Hx:: Cancer (sister with breast cancer) Review of Systems - Constitutional Denies anorexia, Denies fever(s) - Eyes Denies blurry vision, Denies double vision - ENT Denies abnormal hearing, Denies dizziness - *Cardiovascular Denies chest pain, Denies shortness of breath, Denies rapid, pounding, or irregular heartbeat - *Respiratory Reports cough (smoker's), Denies change in phlegm color, Denies coughing up blood - *Gastrointestinal Reports other (See HPI) - *Genitourinary Denies abnormal vaginal bleeding, Denies difficulty urinating, Denies painful urination, Denies urinary incontinence - *Musculoskeletal Denies abnormal walking, Denies joint pain, Denies muscle weakness - Integumentary/Breasts Denies hair loss, Denies change in skin color - *Neurologic Reports abnormal movements, Denies abnormal speech, Denies localized weakness - Psychiatric Reports anxiety, Denies confusion, Denies memory loss - Endocrine Denies cold intolerance, Denies heat intolerance - Hematologic/Lymphatic Denies easy bruising - Allergic/Immunologic Denies itchy eyes, Denies seasonal runny nose Meds Home Medications Medication Instructions Recorded Confirmed Type Albuterol Sulfate [Albuterol 2 puff IH Q6HP PRN 04/02/21 04/02/21 History Sulfate Hfa] Cetirizine HCl 10 mg PO DAILY 04/02/21 04/02/21 History Quetiapine Fumarate [Seroquel 50 50 mg PO QPMWITHMEAL 04/02/21 04/02/21 History mg Tablets] Allergies Allergy/AdvReac Type Severity Reaction Status Date / Time No Known Allergies Allergy Verified 09/19/19 13:45 Exam Vital signs and Labs for Last 24 Hours: Temp Pulse Resp BP Pulse Ox 98.7 F 100 H 14 103/68 L 95 04/03/21 08:00 04/03/21 08:00 04/03/21 07:08 04/03/21 07:08 04/03/21 07:08 Laboratory Results - last 24 hr 04/02/21 13:00: WBC 13.9 H, RBC 4.21, Hgb 9.0 L, Hct 31.0 L, MCV 73.5 L, MCH 21.3 L, MCHC 29.0 L, RDW 16.4, Plt Count 473 H, MPV 7.5, Neut % (Auto) 94.4 H, Lymph % (Auto) 3.9 L, [place] % (Auto) 1.4 L, Eos % (Auto) 0.3, Baso % (Auto) 0.1, Neut # (Auto) 13.1 H, Lymph # (Auto) 0.5 L, [place] # (Auto) 0.2, Eos # (Auto) 0.0, Baso # (Auto) 0.0, Total Counted 100, Neutrophils % (Manual) 89 H, Lymphocytes
--- NOTE | 2021-04-03 10:20 | PC.NURSE ---
5.2 mg morphine per bed setter has been taken, clearing and changing syringe at this time.
--- NOTE | 2021-04-03 12:01 | PC.NURSE ---
lab called to inform this rn that blood was ready for transfusion. but no consent has been signed. this rn assumed care at 1130. consent is being obtained at this time.
--- NOTE | 2021-04-03 18:35 | PC.NURSE ---
1 UNIT PRBC'S TRANSFUSED TODAY, PT TOLERATED WELL, SHE DID C/O SOME NAUSEA AND WAS TREATED WITH PRN ZOFRAN WITH GOOD EFFECTIVENESS NOTED, VSS, 2 LNC FOR O2 SUPPORT. DSG IN PLACE TO ABD C/D/I.
--- NOTE | 2021-04-03 19:41 | PC.NURSE ---
20.7 MG MORPHINE CLEARED FROM PAYMASTER OF PURSES PER Evelio CHEEK RN
[2021-04-04] VITALS (16 sets, daily range): BP systolic 93–139; BP diastolic 61–81; PULSE 78–106; RESP 12–20; TEMP 36.5–37.3; O2SAT 90–99; BMI 19.6; BMI 19.5
[2021-04-04 02:24] LABS: Basophils % 0.2 % (0.1-2.0); Eosinophils # 0.1 K/mm3 (0.0-0.4); Eosinophils % 0.7 % (0.1-12.0); Lymphocytes % 9.6 % (10-50); Mean Corpuscular HGB Conc 29.3 g/dL (31.8-35.4); Mean Corpuscular Hemoglobin 23.2 pg (27.0-31.2); Mean Corpuscular Volume 79.2 fl (81-99); Mean Platelet Volume 7.8 fl (7.4-10.4); Monocytes # 0.5 K/mm3 (0.1-1.0); Monocytes % 5.3 % (1.7-9.3); Neutrophils # 8.3 K/mm3 (1.8-7.8); Neutrophils % 84.2 % (37.0-80.0); Platelet Count 288 K/mm3 (142-424); Red Cell Distribution Width 17.8 % (11.5-17.5); White Blood Count 9.9 K/mm3 (4.8-10.8)
[2021-04-04 02:26] LABS: Hematocrit 28.5 % (37.0-47.0); Hemoglobin 8.3 g/dL (12.2-16.2)
[2021-04-04 02:38] LABS: Chloride 102 mmol/L (98-107); Potassium 4.1 mmoL/L (3.5-5.1); Sodium 134 mmol/L (136-145)
[2021-04-04 02:41] LABS: Anion Gap 9.1 mEq/L (5-15); Blood Urea Nitrogen 21 mg/dl (7-17); Calcium 8.3 mg/dl (8.4-10.2); Carbon Dioxide 27 mmol/L (22.0-30.0); Creatinine Clearance Estimated 111 mL/min (50-200); Estimated Glomerular Filt Rate 128 ml/min (>60); GFR (African American) 155 ML/MIN (>60)
[2021-04-04 02:45] LABS: Glucose 89 mg/dl (74-100)
--- NOTE | 2021-04-04 03:21 | PC.NURSE ---
A&OX4. FOR THE BEGINNING HALF OF SHIFT, PT TOLERATING 2LNC WELL. PT DEVELOPED A COUGH, ENCOURAGED PT TO HUG PILLOW. PT O2 DECREASING TO LOW 80S, OXYGEN INCREASED TO 3.5LNC. PT SAT 90-92% AT THIS POINT. THIS NURSE PROVIDED BATH AND ORAL CARE FOR PT. TOLERATED WELL. ALSO CHANGED ABD DRESSING. SCANT AMOUNT OF SEROSANG DRAINAGE NOTED. PT HAS EXPRESSED PAIN X1, BUT IS ACTIVELY USING HER SIEBEL CRM DEVELOPER. WILL CLEAR AT END OF SHIFT. OTHERWISE, PT HAS HAD NO C/O AND HAS RESTED WELL T/O NIGHT.
--- NOTE | 2021-04-04 06:15 | PC.NURSE ---
PT HAS USED 24.4 MG OF MORPHINE PER MATH TEACHER PUMP THIS SHIFT. PUMP CLEARED.
--- NOTE | 2021-04-04 08:14 | CT_ITS ---
PROCEDURE: CT ABDOMEN PELVIS WO/W CON CLINICAL INDICATION: Bladder abnormality Pelvic mass versus distended urinary bladder COMPARISON: CT CT ABDOMEN PELVIS W CON from 04/02/2021 TECHNIQUE: IV Contrast: 75ML Isovue 370 Oral Contrast None Axial images obtained with sagittal and coronal reformats. All CT scans at the facility use one or more dose reduction, viz: automated exposure control, ma/kV adjustment per patient size (including targeted exams where dose is matched to indication, i.e. head), or iterative reconstruction technique. FINDINGS: CT cystogram performed. Images are performed without and with contrast instilled into the urinary bladder via pre-existing Lowry catheter. Patient has had recent abdominal surgery with skin clips along the anterior abdomen. There is a small amount of hyperdense material within the small-bowel. Is could be from vicarious excretion of contrast and suture line in the right lower quadrant. There is a mild amount of fluid in the right pericolic gutter right lower quadrant and cul-de-sac. Small amount of free air is noted as before Lowry catheter is present. There is a large cystic central pelvic mass extending into the upper abdomen which is separate from the urinary bladder measuring 18 by 12 by 16 cm. There is some minimal nodularity along the anterior and right aspect of the mass measuring 2.2 x 1 cm. Small amount air is present in the urinary bladder. Contrast did not reflux back up into the kidneys. IMPRESSION: Large central pelvic cystic mass extending into the lower abdomen 18 x 12 x 16 cm. This may represent an benign or malignant ovarian neoplasm. Postsurgical changes with small amount of ascites and small residual pneumoperitoneum Dictated by: Raul Jackson MD 04/04/2021 12:40 Raul Jackson MD in OV 04/04/2021 12:40
--- NOTE | 2021-04-04 08:19 | P.PN_ITS ---
Subjective Narrative: The patient has had multiple complaints with regard to pain and discomfort throughout the evening per nursing staff. She currently is complaining of a severe headache . She does have significant abdominal pain but states that the head is worse . Progress Note: A&P (1) Colon perforation Status: Acute Assessment and plan: Stable status post right colectomy. Continue to increase ambulation Continue PSYCHIATRIC NURSING ASSISTANT with as needed Dilaudid for breakthrough (2) Status post right colon removal Status: Acute (3) Postoperative anemia Status: Acute Assessment and plan: 2 unit transfusion completed yesterday. Hemoglobin increased; however, not to the degree expected. Repeat hemoglobin/hematocrit at 2 PM (4) Atonic bladder Status: Acute (5) COPD (chronic obstructive pulmonary disease) Status: Acute Exam Vital signs and Labs for Last 24 Hours: Temp Pulse Resp BP Pulse Ox 98.3 F 83 13 110/64 90 L 04/04/21 06:00 04/04/21 06:00 04/04/21 06:00 04/04/21 06:00 04/04/21 06:00 Laboratory Results - last 24 hr 04/03/21 05:26: Blood Type Confirm O Positive 04/03/21 10:10: Blood Type O Positive, Antibody Screen Negative, Crossmatch ([facility] ) See Detail 04/04/21 02:10: WBC 9.9, RBC 3.60 L, Hgb 8.3 L D, Hct 28.5 L, MCV 79.2 L, MCH 23.2 L, MCHC 29.3 L, RDW 17.8 H, Plt Count 288, MPV 7.8, Neut % (Auto) 84.2 H, Lymph % (Auto) 9.6 L, [place] % (Auto) 5.3, Eos % (Auto) 0.7, Baso % (Auto) 0.2, Neut # (Auto) 8.3 H, Lymph # (Auto) 1.0, [place] # (Auto) 0.5, Eos # (Auto) 0.1, Baso # (Auto) 0.0 04/04/21 02:10: Sodium 134 L, Potassium 4.1, Chloride 102, Carbon Dioxide 27, Anion Gap 9.1, BUN 21 H, Creatinine 0.50 L, Estimated Creat Clear 111, Estimated GFR 128, Est GFR ( Amer) 155, Glucose 89 D, Calcium 8.3 L I & O for Last 24 hours: Intake & Output 04/01/21 04/02/21 04/03/21 04/04/21 11:59 11:59 11:59 11:59 Intake Total 5050 / 5050 0 / 0 Output Total 975 / 975 775 / 775 Balance 4075 / 4075 -775 / -775 Weight 122 lb 2 oz 122 lb 4 oz - Constitutional moderate distress Comments: Secondary to headache - *Routine Respiratory Exam Absent: respiratory distress - *Routine Cardiovascular Exam Absent: tachycardia - *Routine Abdominal Exam Comments: Dressing in place. No spreading cellulitis.
--- NOTE | 2021-04-04 09:02 | HMH.ACPN2 ---
<Brittney Hadley - Last Filed: 04/04/21 09:02> Internal Medicine - PN: Subj *Date: 04/04/21 *Time: 09:02 Interval history: Per nursing: Patient has required large quantity of morphine during the night after which she can continue to . she did have relief with some Dilaudid this a.m.She is nauseated at present. Patient receiving piperacillin and IV fluids of D5W with potassium at 125 an hour. She remembered remains on GAS ADJUSTER pain pump. She continues with Lowry catheter to bedside drainage. White blood cell count is 9900 with hemoglobin of 8.3 and hematocrit of 28.5. She has received 2 units of packed red blood cells. Lecture lites reveal sodium of 134 and potassium of 4.1. BUN is 21 and creatinine 0.5. Patient does have a nonproductive frequent cough. She notes wheezing. She denies chest pain. She has not been out of bed. She remains n.p.o. Exam Vital signs and Labs for Last 24 Hours: Temp Pulse Resp BP Pulse Ox 98.6 F 84 18 124/67 97 04/04/21 08:00 04/04/21 08:00 04/04/21 08:00 04/04/21 08:00 04/04/21 08:00 Laboratory Results - last 24 hr 04/03/21 05:26: Blood Type Confirm O Positive 04/03/21 10:10: Blood Type O Positive, Antibody Screen Negative, Crossmatch ([facility]) See Detail 04/04/21 02:10: WBC 9.9, RBC 3.60 L, Hgb 8.3 L D, Hct 28.5 L, MCV 79.2 L, MCH 23.2 L, MCHC 29.3 L, RDW 17.8 H, Plt Count 288, MPV 7.8, Neut % (Auto) 84.2 H, Lymph % (Auto) 9.6 L, [place] % (Auto) 5.3, Eos % (Auto) 0.7, Baso % (Auto) 0.2, Neut # (Auto) 8.3 H, Lymph # (Auto) 1.0, [place] # (Auto) 0.5, Eos # (Auto) 0.1, Baso # (Auto) 0.0 04/04/21 02:10: Sodium 134 L, Potassium 4.1, Chloride 102, Carbon Dioxide 27, Anion Gap 9.1, BUN 21 H, Creatinine 0.50 L, Estimated Creat Clear 111, Estimated GFR 128, Est GFR ( Amer) 155, Glucose 89 D, Calcium 8.3 L I & O for Last 24 hours: Intake & Output 04/01/21 04/02/21 04/03/21 04/04/21 11:59 11:59 11:59 11:59 Intake Total 5050 / 5050 0 / 0 Output Total 975 / 975 775 / 775 Balance 4075 / 4075 -775 / -775 Weight 122 lb 2 oz 122 lb 4 oz - Constitutional no acute distress Comments: Currently is trying to call her workplace to notify them that she is in the hospital. - *Routine Respiratory Exam Present: wheezes (Bilaterally throughout.) - *Routine Cardiovascular Exam Present: RRR - *Routine Abdominal Exam Present: soft, distended. Absent: normoactive bowel sounds (Audible bowel sounds.) Comments: Abdominal dressing clean and dry. - *Routine Extremities Exam Absent: edema, calf tenderness - *Routine Neurological Exam Present: alert, oriented X3 Assessment and Plan (1) Colon perforation Status: Acute Category: Medical Code(s): K63.1 - Perforation of intestine (nontraumatic) (2) Status post right colon removal Status: Acute Category: Surgical Code(s): Z90.49 - Acquired absence of other specified parts of digestive tract (3) Postoperative anemia Status: Acute Category: Medical Code(s): D64.9 - Anemia, unspecified (4) Atonic bladder Status: Acute Category: Medical Code(s): N31.2 - Flaccid neuropathic bladder, not elsewhere classified (5) COPD (chronic obstructive pulmonary disease) Status: Acute Category: Medical Code(s): J44.9 - Chronic obstructive pulmonary disease, unspecified (6) Tobacco use disorder Status: Acute Category: Medical Code(s): F17.200 - Nicotine dependence, unspecified, uncomplicated - Assessment and plan all Dx Assessment and Plan for all problems:: Patient is being followed by her surgeon Dr. Cruz. He is order CT scan of the abdomen/pelvis. She will also have a chest x-ray. We will start duo nebs. She is also to continue with incentive spirometer. She is to be out of bed at least 4 times today. She also has a urology consult. <Raymond Shi - Last Filed: 04/04/21 17:32> Internal Medicine - PN: Subj *Date: 04/04/21 *Time: 17:30 Exam Vital signs and Labs for Last 24 Hours:
--- NOTE | 2021-04-04 14:09 | P.PN_ITS ---
[facility] Anesthesia Record Part II Discharge Time: 12:28 Destination: Medical Surgical Department PACU nurse assessment reviewed?: Yes Patient Condition:: Good Anesthesia Complications:: None Swallowing reflex intact?: Yes Cyanosis?: No Blood Pressure: 123/62 Pulse Rate: 106 Temperature: 97.9 F Mental Status: Alert & Oriented Pain level:: 0 Nausea and/or vomitting:: None Intake, IV Amount: 0
[2021-04-04 14:26] LABS: Hematocrit 26.9 % (37.0-47.0); Hemoglobin 8.1 g/dL (12.2-16.2)
--- NOTE | 2021-04-04 15:56 | ECG_ITS ---
APPROVED REPORT Exam: Resting ECG HR:96 bpm ECG Measurements Heart Rate 96 AXES ND 142 P 42 QRSd 132 QRS 35 QT 368 T 68 QTc 464 Conclusion Normal sinus rhythm Right bundle branch block Abnormal ECG Electronically signed by : Donnell Covarrubias MD 04/06/2021 07:32:10
--- NOTE | 2021-04-04 17:32 | XR_ITS ---
PROCEDURE INFORMATION: Exam: XR Chest Exam date and time: 04/04/2021 5:32 PM Age: 56 years old Clinical indication: Other: R/O pneumonia post op TECHNIQUE: Imaging protocol: XR of the chest. Views: 1 view. COMPARISON: CR XR CHEST PORTABLE 08/17/2020 1:20 PM FINDINGS: Lungs: Patchy airspace opacities noted within the right lung base consistent with developing pneumonia. The lungs are hyperinflated, consistent with underlying small airways disease. Pleural spaces: Bilateral pleural effusions. Apical pleural thickening noted bilaterally. There is no evidence of pneumothorax. Heart/Mediastinum: Unremarkable. No cardiomegaly. Vasculature: The vasculature demonstrates diffuse mild atherosclerotic calcification. Bones/joints: Unremarkable. IMPRESSION: 1. Patchy airspace opacities noted within the right lung base consistent with developing pneumonia. 2. Bilateral pleural effusions. 3. The lungs are hyperinflated, consistent with underlying small airways disease.
--- NOTE | 2021-04-04 18:00 | PC.NURSE ---
Pt has used approximately 4 MG of Morphine this shift. (7A-7P)
[2021-04-05] VITALS (14 sets, daily range): BP systolic 105–138; BP diastolic 60–69; PULSE 66–100; RESP 15–19; TEMP 35.9–37.1; O2SAT 90–96; BMI 21.7
[2021-04-05 06:13] LABS: Basophils % 0.1 % (0.1-2.0); Eosinophils # 0.1 K/mm3 (0.0-0.4); Eosinophils % 0.7 % (0.1-12.0); Hematocrit 28.5 % (37.0-47.0); Hemoglobin 8.3 g/dL (12.2-16.2); Lymphocytes # 0.6 K/mm3 (0.7-4.5); Lymphocytes % 6.6 % (10-50); Mean Corpuscular HGB Conc 29.1 g/dL (31.8-35.4); Mean Corpuscular Hemoglobin 22.7 pg (27.0-31.2); Mean Corpuscular Volume 77.9 fl (81-99); Mean Platelet Volume 7.3 fl (7.4-10.4); Monocytes # 0.4 K/mm3 (0.1-1.0); Monocytes % 4.3 % (1.7-9.3); Neutrophils # 7.6 K/mm3 (1.8-7.8); Neutrophils % 88.2 % (37.0-80.0); Platelet Count 301 K/mm3 (142-424); Red Blood Count 3.66 M/mm3 (4.20-5.40); White Blood Count 8.6 K/mm3 (4.8-10.8)
[2021-04-05 06:33] LABS: MANUAL DIFFERENTIAL MANUAL DIFFERENTIAL (MANUAL DIFF)
[2021-04-05 06:47] LABS: Anion Gap 8.9 mEq/L (5-15); Blood Urea Nitrogen 10 mg/dl (7-17); Carbon Dioxide 27 mmol/L (22.0-30.0); Chloride 102 mmol/L (98-107); Creatinine Clearance Estimated 123 mL/min (50-200); Estimated Glomerular Filt Rate 128 ml/min (>60); GFR (African American) 155 ML/MIN (>60); Glucose 112 mg/dl (74-100); Potassium 3.9 mmoL/L (3.5-5.1); Sodium 134 mmol/L (136-145)
--- NOTE | 2021-04-05 08:28 | HMH.ACPN2 ---
<Brittney Hadley - Last Filed: 04/05/21 08:28> Internal Medicine - PN: Subj *Date: 04/05/21 *Time: 08:28 Interval history: Patient states she did not have a good night due to pain. She denies nausea. She states she is not passing any gas. Lowry catheter was removed and she has walked to the bathroom and is voiding QS. She has not been taking her breathing treatments. Patient remains on PHYSICAL THERAPY RESIDENT morphine pump and is requiring Dilaudid IV as well. Chest x-ray revealed patchy airspace opacities in the right lung base consistent with developing pneumonia, bilateral pleural effusions, and hyperinflated lungs consistent with underlying small airway disease. Laboratory data this morning shows a hemoglobin of 8.3 hematocrit of 28.5 and white blood cell count of 8600. Blood chemistries show sodium 134, potassium is 3.9, BUN is 10 and creatinine 0.5. Repeat CT of the abdomen/pelvis showed a large central pelvic cystic mass extending to the lower abdomen 18 x 12 x 16 cm., Possibly representing a benign or malignant ovarian neoplasm; And postsurgical changes with small amount of ascites and small residual pneumoperitoneum Exam Vital signs and Labs for Last 24 Hours: Temp Pulse Resp BP Pulse Ox 98.2 F 96 H 16 138/69 95 04/05/21 07:36 04/05/21 07:36 04/05/21 07:36 04/05/21 04:00 04/05/21 07:36 Laboratory Results - last 24 hr 04/04/21 14:16: Hgb 8.1 L, Hct 26.9 L 04/05/21 05:50: WBC 8.6, RBC 3.66 L, Hgb 8.3 L, Hct 28.5 L, MCV 77.9 L, MCH 22.7 L, MCHC 29.1 L, RDW 18.0 H, Plt Count 301, MPV 7.3 L, Neut % (Auto) 88.2 H, Lymph % (Auto) 6.6 L, [place] % (Auto) 4.3, Eos % (Auto) 0.7, Baso % (Auto) 0.1, Neut # (Auto) 7.6, Lymph # (Auto) 0.6 L, [place] # (Auto) 0.4, Eos # (Auto) 0.1, Baso # (Auto) 0.0 04/05/21 05:50: Sodium 134 L, Potassium 3.9, Chloride 102, Carbon Dioxide 27, Anion Gap 8.9, BUN 10 D, Creatinine 0.50 L, Estimated Creat Clear 123, Estimated GFR 128, Est GFR ( Amer) 155, Glucose 112 H, Calcium 8.0 L I & O for Last 24 hours: Intake & Output 04/02/21 04/03/21 04/04/21 04/05/21 11:59 11:59 11:59 11:59 Intake Total 5050 / 5050 0 / 0 5474 / 5474 Output Total 975 / 975 775 / 775 1175 / 1175 Balance 4075 / 4075 -775 / -775 4299 / 4299 Weight 122 lb 2 oz 122 lb 4 oz 135 lb 2 oz Microbiology Reports for the Last 24 Hours: Microbiology 04/02/21 16:00 Blood Blood Culture - Preliminary NO GROWTH AFTER 48 HOURS 04/02/21 16:00 Blood Blood Culture - Preliminary NO GROWTH AFTER 48 HOURS - Constitutional no acute distress Comments: awakened for assessment. - *Routine Respiratory Exam Present: decreased breath sounds (On the right) Comments: No wheezing noted today. Poor inspiratory effort. - *Routine Cardiovascular Exam Present: RRR - *Routine Abdominal Exam Present: tenderness, distended Comments: Bowel sounds are present - *Routine Extremities Exam Present: pulses intact. Absent: edema, calf tenderness - *Routine Neurological Exam Present: alert Lethargic Assessment and Plan (1) Colon perforation Status: Acute Category: Medical Code(s): K63.1 - Perforation of intestine (nontraumatic) (2) Status post right colon removal Status: Acute Category: Surgical Code(s): Z90.49 - Acquired absence of other specified parts of digestive tract (3) Postoperative anemia Status: Acute Category: Medical Code(s): D64.9 - Anemia, unspecified (4) Atonic bladder Status: Acute Category: Medical Code(s): N31.2 - Flaccid neuropathic bladder, not elsewhere classified (5) COPD (chronic obstructive pulmonary disease) Status: Acute Category: Medical Code(s): J44.9 - Chronic obstructive pulmonary disease, unspecified (6) Tobacco use disorder Status: Acute Category: Medical Code(s): F17.200 - Nicotine dependence, unspecified, uncomplicated - Assessment and plan all Dx Assessment and Plan for a
[2021-04-05 08:37] LABS: Lymphocytes % 7 % (10-50); Monocytes % 1 % (2-9); Neutrophils % 92 % (42-76); Total Cells Counted 100
[2021-04-05 08:38] LABS: Anisocytosis 1+; Hypochromasia 2+; Microcytosis 2+; Platelet Estimate Normal
--- NOTE | 2021-04-05 09:11 | HMH.GSPN ---
Subjective Narrative: Patient states that her pain is somewhat better. She did have some nausea overnight. No flatus. Progress Note: A&P (1) Colon perforation Status: Acute (2) Status post right colon removal Status: Acute (3) Postoperative anemia Status: Acute (4) Atonic bladder Status: Acute (5) COPD (chronic obstructive pulmonary disease) Status: Acute (6) Tobacco use disorder Status: Acute Assessment and Plan for All Diagnoses:: Continue current care Exam Vital signs and Labs for Last 24 Hours: Temp Pulse Resp BP Pulse Ox 98.2 F 96 H 16 138/69 95 04/05/21 07:36 04/05/21 07:36 04/05/21 07:36 04/05/21 04:00 04/05/21 07:36 Laboratory Results - last 24 hr 04/04/21 14:16: Hgb 8.1 L, Hct 26.9 L 04/05/21 05:50: WBC 8.6, RBC 3.66 L, Hgb 8.3 L, Hct 28.5 L, MCV 77.9 L, MCH 22.7 L, MCHC 29.1 L, RDW 18.0 H, Plt Count 301, MPV 7.3 L, Neut % (Auto) 88.2 H, Lymph % (Auto) 6.6 L, [place] % (Auto) 4.3, Eos % (Auto) 0.7, Baso % (Auto) 0.1, Neut # (Auto) 7.6, Lymph # (Auto) 0.6 L, [place] # (Auto) 0.4, Eos # (Auto) 0.1, Baso # (Auto) 0.0, Total Counted 100, Neutrophils % (Manual) 92 H, Lymphocytes % (Manual) 7 L, Monocytes % (Manual) 1 L, Platelet Estimate Normal, Hypochromasia 2+, Anisocytosis 1+, Microcytosis 2+ 04/05/21 05:50: Sodium 134 L, Potassium 3.9, Chloride 102, Carbon Dioxide 27, Anion Gap 8.9, BUN 10 D, Creatinine 0.50 L, Estimated Creat Clear 123, Estimated GFR 128, Est GFR ( Amer) 155, Glucose 112 H, Calcium 8.0 L I & O for Last 24 hours: Intake & Output 04/02/21 04/03/21 04/04/21 04/05/21 11:59 11:59 11:59 11:59 Intake Total 5050 / 5050 0 / 0 5474 / 5474 Output Total 975 / 975 775 / 775 1175 / 1175 Balance 4075 / 4075 -775 / -775 4299 / 4299 Weight 122 lb 2 oz 122 lb 4 oz 135 lb 2 oz Microbiology Reports for the Last 24 Hours: Microbiology 04/02/21 16:00 Blood Blood Culture - Preliminary NO GROWTH AFTER 48 HOURS 04/02/21 16:00 Blood Blood Culture - Preliminary NO GROWTH AFTER 48 HOURS - *Routine Abdominal Exam Present: soft Comments: Dressing clean and intact
--- NOTE | 2021-04-05 10:46 | HMH.ACPN ---
Internal Medicine - PN: Subj *Date: 04/05/21 *Time: 10:46 Exam Vital signs and Labs for Last 24 Hours: Temp Pulse Resp BP Pulse Ox 98.2 F 96 H 16 138/69 95 04/05/21 07:36 04/05/21 07:36 04/05/21 07:36 04/05/21 04:00 04/05/21 07:36 Laboratory Results - last 24 hr 04/04/21 14:16: Hgb 8.1 L, Hct 26.9 L 04/05/21 05:50: WBC 8.6, RBC 3.66 L, Hgb 8.3 L, Hct 28.5 L, MCV 77.9 L, MCH 22.7 L, MCHC 29.1 L, RDW 18.0 H, Plt Count 301, MPV 7.3 L, Neut % (Auto) 88.2 H, Lymph % (Auto) 6.6 L, [place] % (Auto) 4.3, Eos % (Auto) 0.7, Baso % (Auto) 0.1, Neut # (Auto) 7.6, Lymph # (Auto) 0.6 L, [place] # (Auto) 0.4, Eos # (Auto) 0.1, Baso # (Auto) 0.0, Total Counted 100, Neutrophils % (Manual) 92 H, Lymphocytes % (Manual) 7 L, Monocytes % (Manual) 1 L, Platelet Estimate Normal, Hypochromasia 2+, Anisocytosis 1+, Microcytosis 2+ 04/05/21 05:50: Sodium 134 L, Potassium 3.9, Chloride 102, Carbon Dioxide 27, Anion Gap 8.9, BUN 10 D, Creatinine 0.50 L, Estimated Creat Clear 123, Estimated GFR 128, Est GFR ( Amer) 155, Glucose 112 H, Calcium 8.0 L I & O for Last 24 hours: Intake & Output 04/02/21 04/03/21 04/04/21 04/05/21 23:59 23:59 23:59 23:59 Intake Total 4000 / 4000 1050 / 1050 5474 / 5474 Output Total 550 / 550 850 / 850 1525 / 1525 0 / 0 Balance 3450 / 3450 200 / 200 3949 / 3949 0 / 0 Weight 54.488 kg 55.395 kg 55 kg 61.292 kg Microbiology Reports for the Last 24 Hours: Microbiology 04/02/21 16:00 Blood Blood Culture - Preliminary NO GROWTH AFTER 48 HOURS 04/02/21 16:00 Blood Blood Culture - Preliminary NO GROWTH AFTER 48 HOURS Assessment and Plan (1) Colon perforation Status: Acute Category: Medical Code(s): K63.1 - Perforation of intestine (nontraumatic) (2) Status post right colon removal Status: Acute Category: Surgical Code(s): Z90.49 - Acquired absence of other specified parts of digestive tract (3) Postoperative anemia Status: Acute Category: Medical Code(s): D64.9 - Anemia, unspecified (4) Atonic bladder Status: Acute Category: Medical Code(s): N31.2 - Flaccid neuropathic bladder, not elsewhere classified (5) COPD (chronic obstructive pulmonary disease) Status: Acute Category: Medical Code(s): J44.9 - Chronic obstructive pulmonary disease, unspecified (6) Tobacco use disorder Status: Acute Category: Medical Code(s): F17.200 - Nicotine dependence, unspecified, uncomplicated The patient's infection will respond to the chosen ABx?: Yes Is the patient receiving the right drug, dose, and route?: Yes Could a more targeted ABx be ordered?: No (CXR SUGGESTIVE OF PNA. WBC WNL, AFEBRILE, CONTINUE CURRENT ABX)
--- NOTE | 2021-04-05 17:47 | PC.NURSE ---
Pt has been pleasant and cooperative this shift. A&O X4. Pt has had frequent complaints of pain and has used 5 MG of Morphine per ANTHROPOLOGY LECTURER + 4 doses of Dilaudid this shift. Pt is currently receiving O2 via NC @ 2 LPM with sats. >90%. Lung sounds reveal expiratory rhonchi. No edema noted. Telemetry reveals NSR. Midline abdominal incision changed with 4X4's, an ABD pad, and tape. Pt ambulates with stand-by assistance in the room and uses the BSC. Urine is clear and yellow. No BM this shift. Pt remains NPO. 20 G peripheral IV in the LT AC is patent and infusing D5W 0.45% NS @ 125 ML/HR. VSS. Call light within reach. Will continue to monitor.
[2021-04-06] VITALS (30 sets, daily range): BP systolic 125–158; BP diastolic 52–85; PULSE 68–106; RESP 13–20; TEMP 36.4–37.2; O2SAT 83–98; BMI 21.1
--- NOTE | 2021-04-06 05:49 | PC.NURSE ---
pt has used 6 mg of IV CRYSTAL GAZER.
[2021-04-06 06:25] LABS: Basophils % 0.3 % (0.1-2.0); Eosinophils # 0.1 K/mm3 (0.0-0.4); Hemoglobin 7.6 g/dL (12.2-16.2); Lymphocytes # 0.7 K/mm3 (0.7-4.5); Lymphocytes % 12.7 % (10-50); Mean Corpuscular HGB Conc 29.4 g/dL (31.8-35.4); Mean Corpuscular Hemoglobin 22.9 pg (27.0-31.2); Mean Platelet Volume 7.1 fl (7.4-10.4); Monocytes # 0.3 K/mm3 (0.1-1.0); Monocytes % 5.8 % (1.7-9.3); Neutrophils # 4.6 K/mm3 (1.8-7.8); Neutrophils % 80.2 % (37.0-80.0); Platelet Count 287 K/mm3 (142-424); Red Blood Count 3.33 M/mm3 (4.20-5.40); Red Cell Distribution Width 18.2 % (11.5-17.5); White Blood Count 5.7 K/mm3 (4.8-10.8)
[2021-04-06 06:44] LABS: Blood Urea Nitrogen 3 mg/dl (7-17); Calcium 7.9 mg/dl (8.4-10.2); Carbon Dioxide 30 mmol/L (22.0-30.0); Chloride 103 mmol/L (98-107); Creatinine Clearance Estimated 119 mL/min (50-200); Estimated Glomerular Filt Rate 128 ml/min (>60); GFR (African American) 155 ML/MIN (>60); Glucose 136 mg/dl (74-100); Sodium 137 mmol/L (136-145)
--- NOTE | 2021-04-06 07:55 | XR_ITS ---
PROCEDURE: XR CHEST PORTABLE CLINICAL HISTORY: decreased BS with wheezing COMPARISON: CR XR CHEST 2V from 07/19/2019 CR XR CHEST PORTABLE from 08/17/[address] ABDOMEN PELVIS W CON from 04/02/2021 CR XR CHEST PORTABLE from 04/04/[address] ABDOMEN PELVIS WO/W CON from 04/04/2021 FINDINGS: Heart size is normal. There is increasing density in the lower lobes consistent with underlying pneumonia with pleural effusions. There is also patchy density in the right upper lobe suspicious for developing pneumonia. IMPRESSION: Increasing bibasilar airspace disease/pneumonia with pleural effusions and developing right upper lobe pneumonia Dictated by: Raul Jackson MD 04/06/2021 09:27 Raul Jackson MD in [facility] 04/06/2021 09:27
--- NOTE | 2021-04-06 07:57 | HMH.ACPN2 ---
<Brittney Hadley - Last Filed: 04/06/21 07:57> Internal Medicine - PN: Subj *Date: 04/06/21 *Time: 07:57 Interval history: Patient states she feels terrible. Biggest complaint is her headache. She states it is persistent. She is also nauseated and has tried to vomit but nothing comes up. She is ambulated to the bathroom. Bowels have not moved and she states she is not passing flatus. Per nursing: Patient has an ongoing cough. She complains all the time with a headache. Laboratory data this morning shows sodium of 137 potassium 4. BUN is 3 and creatinine 0.5. CBC shows a decrease in her hemoglobin at 7.6 with a hematocrit of 26. White blood cell count is 5.7. Exam Vital signs and Labs for Last 24 Hours: Temp Pulse Resp BP Pulse Ox 98.9 F 83 13 125/84 97 04/06/21 04:00 04/06/21 06:14 04/06/21 06:00 04/06/21 06:00 04/06/21 06:14 Laboratory Results - last 24 hr 04/05/21 05:50: Total Counted 100, Neutrophils % (Manual) 92 H, Lymphocytes % (Manual) 7 L, Monocytes % (Manual) 1 L, Platelet Estimate Normal, Hypochromasia 2+, Anisocytosis 1+, Microcytosis 2+ 04/06/21 05:56: WBC 5.7 D, RBC 3.33 L, Hgb 7.6 L, Hct 26.0 L, MCV 78.0 L, MCH 22.9 L, MCHC 29.4 L, RDW 18.2 H, Plt Count 287, MPV 7.1 L, Neut % (Auto) 80.2 H, Lymph % (Auto) 12.7, [place] % (Auto) 5.8, Eos % (Auto) 1.0, Baso % (Auto) 0.3, Neut # (Auto) 4.6, Lymph # (Auto) 0.7, [place] # (Auto) 0.3, Eos # (Auto) 0.1, Baso # (Auto) 0.0 04/06/21 05:56: Sodium 137, Potassium 4.0, Chloride 103, Carbon Dioxide 30, Anion Gap 8.0, BUN 3 L D, Creatinine 0.50 L, Estimated Creat Clear 119, Estimated GFR 128, Est GFR ( Amer) 155, Glucose 136 H, Calcium 7.9 L I & O for Last 24 hours: Intake & Output 04/03/21 04/04/21 04/05/21 04/06/21 11:59 11:59 11:59 11:59 Intake Total 5050 / 5050 0 / 0 5474 / 5474 2766 / 2766 Output Total 975 / 975 775 / 775 1175 / 1175 4 / 4 Balance 4075 / 4075 -775 / -775 4299 / 4299 2762 / 2762 Weight 122 lb 2 oz 122 lb 4 oz 135 lb 2 oz 131 lb 4 oz - Constitutional no acute distress Comments: Appears to be uncomfortable - *Routine Respiratory Exam Present: wheezes (Bilateral inspiratory posteriorly), diminished air movement (In basis. Poor inspiratory effort.) - *Routine Cardiovascular Exam Present: RRR - *Routine Abdominal Exam Present: soft, distended. Absent: normoactive bowel sounds, tenderness - *Routine Extremities Exam Absent: edema, calf tenderness - *Routine Neurological Exam Present: alert, oriented X3 Assessment and Plan (1) Colon perforation Status: Acute Category: Medical Code(s): K63.1 - Perforation of intestine (nontraumatic) (2) Status post right colon removal Status: Acute Category: Surgical Code(s): Z90.49 - Acquired absence of other specified parts of digestive tract (3) Postoperative anemia Status: Acute Category: Medical Code(s): D64.9 - Anemia, unspecified (4) Atonic bladder Status: Acute Category: Medical Code(s): N31.2 - Flaccid neuropathic bladder, not elsewhere classified (5) COPD (chronic obstructive pulmonary disease) Status: Acute Category: Medical Code(s): J44.9 - Chronic obstructive pulmonary disease, unspecified (6) Tobacco use disorder Status: Acute Category: Medical Code(s): F17.200 - Nicotine dependence, unspecified, uncomplicated (7) Pneumonia Status: Acute Category: Medical Code(s): J18.9 - Pneumonia, unspecified organism - Assessment and plan all Dx Assessment and Plan for all problems:: We will add Toradol IV for headache. Will repeat chest x-ray. Will make duo nebs in addition to 4 times daily every 1-2 hours as needed. Again encourage patient to get out of bed and sit in a chair and ambulate. Also encourage incentive spirometer. Patient needs aggressive pulmonary toilet. Also will give 2 units of packed red blood cells today for her anemia. <Raymond Shi - Last Filed: 04/06/21 13:37> Internal Medicine
--- NOTE | 2021-04-06 08:28 | P.PN_ITS ---
Subjective Patient reports: no flatus, no bowel movement Narrative: She continues to have a headache. Abdominal pain persists but is slightly better this morning . She states that she feels pretty weak overall . Progress Note: A&P (1) Colon perforation Status: Acute (2) Status post right colon removal Status: Acute (3) Postoperative anemia Status: Acute (4) Atonic bladder Status: Acute (5) COPD (chronic obstructive pulmonary disease) Status: Acute (6) Tobacco use disorder Status: Acute (7) Pneumonia Status: Acute Assessment and Plan for All Diagnoses:: Decreased hemoglobin with some associated weakness this morning. Blood transfusion ordered. Increase ambulation. Small amounts of clear liquids cautiously as directed by nursing. No tray. No carbonation. Exam Vital signs and Labs for Last 24 Hours: Temp Pulse Resp BP Pulse Ox 98.7 F 96 H 14 134/76 98 04/06/21 08:00 04/06/21 08:00 04/06/21 08:00 04/06/21 08:00 04/06/21 08:00 Laboratory Results - last 24 hr 04/05/21 05:50: Total Counted 100, Neutrophils % (Manual) 92 H, Lymphocytes % (Manual) 7 L, Monocytes % (Manual) 1 L, Platelet Estimate Normal, Hypochromasia 2+, Anisocytosis 1+, Microcytosis 2+ 04/06/21 05:56: WBC 5.7 D, RBC 3.33 L, Hgb 7.6 L, Hct 26.0 L, MCV 78.0 L, MCH 22.9 L, MCHC 29.4 L, RDW 18.2 H, Plt Count 287, MPV 7.1 L, Neut % (Auto) 80.2 H, Lymph % (Auto) 12.7, [place] % (Auto) 5.8, Eos % (Auto) 1.0, Baso % (Auto) 0.3, Neut # (Auto) 4.6, Lymph # (Auto) 0.7, [place] # (Auto) 0.3, Eos # (Auto) 0.1, Baso # (Auto) 0.0 04/06/21 05:56: Sodium 137, Potassium 4.0, Chloride 103, Carbon Dioxide 30, Anion Gap 8.0, BUN 3 L D, Creatinine 0.50 L, Estimated Creat Clear 119, Estimated GFR 128, Est GFR ( Amer) 155, Glucose 136 H, Calcium 7.9 L 04/06/21 07:55: Crossmatch (AHG) See Detail I & O for Last 24 hours: Intake & Output 04/03/21 04/04/21 04/05/21 04/06/21 11:59 11:59 11:59 11:59 Intake Total 5050 / 5050 0 / 0 5474 / 5474 2766 / 2766 Output Total 975 / 975 775 / 775 1175 / 1175 4 / 4 Balance 4075 / 4075 -775 / -775 4299 / 4299 2762 / 2762 Weight 122 lb 2 oz 122 lb 4 oz 135 lb 2 oz 131 lb 4 oz - Constitutional mild distress Comments: Essentially secondary to headache - *Routine Respiratory Exam Absent: respiratory distress - *Routine Cardiovascular Exam Absent: tachycardia - *Routine Abdominal Exam Comments: No spreading cellulitis
--- NOTE | 2021-04-06 14:22 | DIET.NUTRFU ---
Addendum entered by Linda Lane 04/08/21 14:54: Pt advanced to full liquids, has not been able to do much but taking small sips. States she has constant pain and feels like Im about to pop , states she cant tell if pain/feelings of fullness are worse after PO intake. Encouraged to continue to slowly advance diet as tolerated taking small sips. Note weight is up another 8#, no edema noted. She is passing flatus and had 3 BMs yesterday. Original Note: Pt day 5 NPO s/p R colectomy, continues with no BM or flatus, states she is burping. She is having ice chips and allowed small sips clear liquids cautiously as directed by nursing per Dr. Small. Weight up 8# past 48h. She has been provided diet edu for slow diet advancement to low residue/soft diet.
[2021-04-06 20:29] LABS: Hematocrit 34.3 % (37.0-47.0)
[2021-04-06 20:36] LABS: Hemoglobin 10.5 g/dL (12.2-16.2)
[2021-04-07] VITALS (9 sets, daily range): BP systolic 145–155; BP diastolic 76–86; PULSE 76–97; RESP 15–20; TEMP 36.4–37.1; O2SAT 90–95; BMI 226848.7
--- NOTE | 2021-04-07 04:59 | PC.NURSE ---
Pt has slept in intervals this shift. Pt A&O x4. BLT lungs with expiratory wheezing throughout. Bowel sounds hypoactive throughout. Pt abdominal dressing C/D/I. Pt using ENAMEL SHADER for pain control. Pts IVs patent and infusing well. Pt up to the bathroom with standby assistance. ICPs thigh high in place. Pt on 2L NC. Pt denies SOA, or N/V. VSS, will continue to monitor
--- NOTE | 2021-04-07 07:00 | PC.NURSE ---
Dr. Small at the bedside changing pt dressing. Wound packed with 4x4 gauze and taped down
--- NOTE | 2021-04-07 07:08 | XR_ITS ---
PROCEDURE: XR ACUTE ABDOMEN SERIES CLINICAL INDICATION: Prolonged postoperative ileus COMPARISON: CT CT ABDOMEN PELVIS WO/W CON from 04/04/2021 CR XR CHEST PORTABLE from 04/06/2021 FINDINGS: Frontal view of the chest shows normal heart size. There is bilateral lower lobe consolidation with effusions similar to the previous exam. Vague density is present in the left upper lobe concerning for developing infiltrate. Upright and supine views of the abdomen shows a nonspecific bowel gas pattern. No free air is identified. No bowel distention is apparent. Suture line is present in the right mid abdominal region. Slight increased density in the pelvis and lower abdomen which may be due to patient's large cystic pelvic mass. Surgical clips noted in the mid abdominal region. IMPRESSION: Postsurgical changes with bilateral lower lobe atelectasis and or infiltrate with effusions and suspected developing infiltrate in the left upper lobe No distended bowel loops evident. Cannot exclude the possibility of fluid-filled bowel loops in the mid and lower abdomen associated with cystic pelvic mass. Dictated by: Raul Jackson MD 04/07/2021 09:24 Raul Jackson MD in [facility] 04/07/2021 09:24
--- NOTE | 2021-04-07 07:10 | HMH.GSPN ---
Subjective Patient reports: no flatus, no bowel movement Narrative: Feels about the same . Her headache has improved since yesterday. She continues to have abdominal pain that is essentially unchanged. Progress Note: A&P (1) Colon perforation Status: Acute (2) Status post right colon removal Status: Acute (3) Postoperative anemia Status: Acute (4) COPD (chronic obstructive pulmonary disease) Status: Acute (5) Tobacco use disorder Status: Acute (6) Pneumonia Status: Acute (7) Ovarian cyst Status: Acute (8) Postoperative ileus Status: Acute Assessment and plan: She is now day 5 status post emergent right colectomy for likely perforated colon cancer. She does have moderate abdominal distention and has yet to pass flatus. Continue to increase ambulation Standard fleets enema x1 Mineral oil enemas twice daily x48 hours Flat and upright abdominal films ordered Await return of bowel function Continue with limited clear liquids as she tolerates Exam Vital signs and Labs for Last 24 Hours: Temp Pulse Resp BP Pulse Ox 98.3 F 81 20 147/76 H 94 L 04/07/21 04:00 04/07/21 04:00 04/07/21 04:00 04/07/21 04:00 04/07/21 04:00 Laboratory Results - last 24 hr 04/06/21 07:55: Blood Type O Positive, Antibody Screen Negative, Crossmatch (AHG) See Detail 04/06/21 19:55: Hgb 10.5 L D, Hct 34.3 L I & O for Last 24 hours: Intake & Output 04/04/21 04/05/21 04/06/21 04/07/21 11:59 11:59 11:59 11:59 Intake Total 0 / 0 5474 / 5474 4166 / 4166 0 / 0 Output Total 775 / 775 1175 / 1175 4 / 4 Balance -775 / -775 4299 / 4299 4162 / 4162 0 / 0 Weight 122 lb 4 oz 135 lb 2 oz 131 lb 4 oz 140 lb 8.997 oz - Constitutional mild distress - *Routine Respiratory Exam Absent: respiratory distress - *Routine Cardiovascular Exam Absent: tachycardia - *Routine Abdominal Exam Present: tenderness, distended Comments: Incision healing without sign of infection. Small incisional wounds aria.
--- NOTE | 2021-04-07 08:48 | HMH.ACPN2 ---
<Arlene Garcia - Last Filed: 04/07/21 08:48> Internal Medicine - PN: Subj *Date: 04/07/21 *Time: 08:48 Interval history: Patient states she was able to sleep a little bit better last night. She continues to complain of abdominal pain that is unchanged. She has been able to pass any flatus and Dr. Small has ordered enemas as well as x-rays. She is taking ice chips. Exam Vital signs and Labs for Last 24 Hours: Temp Pulse Resp BP Pulse Ox 98.4 F 94 H 18 152/85 H 94 L 04/07/21 08:00 04/07/21 08:00 04/07/21 08:00 04/07/21 08:00 04/07/21 08:00 Laboratory Results - last 24 hr 04/06/21 07:55: Blood Type O Positive, Antibody Screen Negative, Crossmatch (AHG) See Detail 04/06/21 19:55: Hgb 10.5 L D, Hct 34.3 L I & O for Last 24 hours: Intake & Output 04/04/21 04/05/21 04/06/21 04/07/21 11:59 11:59 11:59 11:59 Intake Total 0 / 0 5474 / 5474 4166 / 4166 0 / 0 Output Total 775 / 775 1175 / 1175 4 / 4 Balance -775 / -775 4299 / 4299 4162 / 4162 0 / 0 Weight 122 lb 4 oz 135 lb 2 oz 131 lb 4 oz 140 lb 8.997 oz - Constitutional no acute distress - *Routine Respiratory Exam Present: rales (bibasilar), rhonchi - *Routine Cardiovascular Exam Present: RRR - *Routine Abdominal Exam Present: soft, normoactive bowel sounds, tenderness (Diffusely tender around surgical site, dressings clean and dry) - *Routine Extremities Exam Absent: cyanosis, clubbing, edema - *Routine Skin Exam Present: warm. Absent: rash - *Routine Neurological Exam Present: alert, oriented X3 Assessment and Plan (1) Colon perforation Status: Acute Category: Medical Code(s): K63.1 - Perforation of intestine (nontraumatic) (2) Status post right colon removal Status: Acute Category: Surgical Code(s): Z90.49 - Acquired absence of other specified parts of digestive tract (3) Postoperative anemia Status: Acute Category: Medical Code(s): D64.9 - Anemia, unspecified (4) COPD (chronic obstructive pulmonary disease) Status: Acute Category: Medical Code(s): J44.9 - Chronic obstructive pulmonary disease, unspecified (5) Tobacco use disorder Status: Acute Category: Medical Code(s): F17.200 - Nicotine dependence, unspecified, uncomplicated (6) Pneumonia Status: Acute Category: Medical Code(s): J18.9 - Pneumonia, unspecified organism (7) Ovarian cyst Status: Acute Category: Medical Code(s): N83.209 - Unspecified ovarian cyst, unspecified side (8) Postoperative ileus Status: Acute Category: Medical Code(s): K91.89 - Other postprocedural complications and disorders of digestive system; K56.7 - Ileus, unspecified - Assessment and plan all Dx Assessment and Plan for all problems:: Surgery to follow. Patient will have abdominal x-rays and enemas today <aRymond Shi - Last Filed: 04/07/21 12:32> Internal Medicine - PN: Subj *Date: 04/07/21 *Time: 12:31 Exam Vital signs and Labs for Last 24 Hours: Temp Pulse Resp BP Pulse Ox 98.4 F 94 H 18 152/85 H 94 L 04/07/21 08:00 04/07/21 08:00 04/07/21 08:00 04/07/21 08:00 04/07/21 08:00 Laboratory Results - last 24 hr 04/06/21 07:55: Blood Type O Positive, Antibody Screen Negative, Crossmatch (AHG) See Detail 04/06/21 19:55: Hgb 10.5 L D, Hct 34.3 L I & O for Last 24 hours: Intake & Output 04/05/21 04/06/21 04/07/21 04/08/21 11:59 11:59 11:59 11:59 Intake Total 5474 / 5474 4166 / 4166 0 / 0 Output Total 1175 / 1175 4 / 4 Balance 4299 / 4299 4162 / 4162 0 / 0 Weight 135 lb 2 oz 131 lb 4 oz 140 lb 8.997 oz Assessment and Plan (1) Colon perforation Status: Acute Category: Medical Code(s): K63.1 - Perforation of intestine (nontraumatic) (2) Status post right colon removal Status: Acute Category: Surgical Code(s): Z90.49 - Acquired absence of other specified parts of digestive tract (3) Postoperative anemia Status: Acute Category: Medical Code(s): D64.9 - Anemia
--- NOTE | 2021-04-07 13:00 | PC.NURSE ---
Nurse to room to administer mineral oil enema, Pt. refused stating I don't want the enema. Nurse will continue to encourage enema's. and attempt to administer later.
--- NOTE | 2021-04-07 13:30 | PC.NURSE ---
Nurse into room to encourage pt. to walk. Pt. refused to walk at this time. Pt. reports pain is bad at 10/10, Nurse encouraged pt. to use pain pump as pt. has not used pain pump much this shift. Pt. refuses stating it doesn't help. Family member states she gets a head ache from it nurse informed pt. that Toradol was given around 10:00 to combat headache from pain medication. Pt. v/u and continues to refuse to use pain pump. Nurse offered Dilaudid for severe pain and educated pt. on possible side effects, and possibility of head ache as well. Pt. v/u and refuses. Nurse spoke with pt. and family on need to use pain medication when needed and nurse is able to medicate pt. q6hr for headache. Both v/u. Nurse offered to return in 1 hour to check on pt. and see how pt. feels about using pain medication and walking at that time. both v/u. Call light within reach, pain pump button in reach, no further needs noted, will continue to monitor.
--- NOTE | 2021-04-07 14:49 | PC.NURSE ---
Pt. up to walk in hallway. Pt. walked 1 lab around unit before respiratory arrived for scheduled breathing treatment. Pt. back to room. Pt. reports pushing pain pump button and having headache after pushing button. Nurse informed pt. she can have Toradol for headache again at 1600. Pt. v/u. and denies needs at this time.
--- NOTE | 2021-04-07 16:49 | PC.NURSE ---
Routine reassessment completed. Pt. reports pain is at 9/10 in ABD. Pt. rates headache at 8/10, Toradol given for headache. Nurse encouraged pt. to use pain pump. Pt. reports pain pump not helping much and requests different medication. Dilaudid given. Nurse informed pt. dilaudid is for severe pain, and that once pain level has come down some that pt. needs to try and walk more today. Pt. v/u and agrees to try and walk. see EMAR for medications given. Pt. denies further needs, will continue to monitor.
--- NOTE | 2021-04-07 17:32 | PC.NURSE ---
Pt. reports feeling much better pain down to 4/10. Pt. up to hallway and walking around unit. Pt. reports passing flatus and having BM in toilet earlier. BM noted to be moderate amount of daniella colored loose stool.
--- NOTE | 2021-04-07 18:18 | PC.NURSE ---
12MG TOTAL GIVEN THROUGH [facility] [employer] RECEPTIONIST PUMP FOR THIS SHIFT.
--- NOTE | 2021-04-07 18:32 | PC.NURSE ---
PT. HAS WORN O2 OFF AND ALL THROUGHOUT DAY. PT. ON RA WHEN NURSE ENTERED ROOM. O2 SATS AT 91% O2 REAPPLIED. O2 SATS AT 95%. NURSE HAS ENCOURAGED PT TO WEAR O2. PT. V/U AND DENIES NEEDS, WILL CONTINUE TO MONITOR.
--- NOTE | 2021-04-07 20:45 | PC.NURSE ---
PATIENT REFUSED TO AMBULATE OUTSIDE OF THE ROOM AT THIS TIME. EDUCATION PROVIDED ABOUT BENEFITS OF MD ORDERED AMBULATION. PT V/U BUT DECLINED TO AMBULATE. SHE STATES THAT SHE MAY TRY IN THE MORNING. SHE HAS AMBULATED WELL TO AND FROM THE BATHROOM.
--- NOTE | 2021-04-07 21:13 | PC.NURSE ---
DRESSING CHANGE COMPLETED AT THIS TIME. SMALL AMOUNT OF SEROSANG DRAINAGE NOTED ON DRESSING AT EACH OPEN PLACE ON INCISION LINE. BOTH SPOTS WERE DIME SIZED. AFTER PREVIOUS DRESSING REMOVED, ALL ALLISON NOTED TO BE INTACT. NO REDNESS OR SWELLING. NEW DRESSING PACKED LIGHTLY INTO EACH OPEN PLACE IN INCISION. 2X2 PADS APPLIED AND COVERED IN TAPE. PATIENT TOLERATED DRESSING CHANGE WELL.
[2021-04-08] VITALS (10 sets, daily range): BP systolic 143–155; BP diastolic 74–88; PULSE 60–79; RESP 16–20; TEMP 36.8–36.9; O2SAT 92–98
--- NOTE | 2021-04-08 01:20 | PC.NURSE ---
LEFT FOREARM IV FOUND TO BE LEAKING AT THIS TIME. IV D/C AND NEW IV INSERTED IN RIGHT FOREARM. TOLERATED WELL.
--- NOTE | 2021-04-08 04:13 | PC.NURSE ---
PATIENT HAS SLEPT THE MAJORITY OF THIS SHIFT. SHE IS A&0X4. SHE HAS AMBULATED TO THE BATHROOM WELL MULTIPLE TIMES TO VOID AND REPORTS PASSING GAS EACH TIME. NO BOWEL MOVEMENT THIS SHIFT. SHE REFUSED THE ENEMA SCHEDULED FOR 1899. PT EDUCATED ON REASON FOR ORDER, AND SHE V/U BUT REFUSED. PAIN WELL CONTROLLED WITH AIR CONDITIONING TECHNICIAN MORPHINE. 8MG ADMINISTERED IN TOTAL AT THIS TIME. NAUSEA REPORTED EARLY IN SHIFT AND RELIEVED WITH PRN ZOFRAN. HEADACHE REPORTED AND RELIEVED WITH PRN TORADOL. DRESSING CLEAN, DRY AND INTACT AT THIS REASSESSMENT. VSS. PATIENT REMAINS NPO WITH SIPS AND CHIPS. PT REMAINS ON 2L NC. LUNGS CTAB AND BOWELS ACTIVE IN ALL QUADRANTS. NO EDEMA NOTED. IVS PATENT AND INFUSING WELL. CALL LIGHT AND AIR CONDITIONING TECHNICIAN BUTTON IN PATIENT REACH.
--- NOTE | 2021-04-08 06:50 | PC.NURSE ---
DR. SOUSA AT BEDSIDE
--- NOTE | 2021-04-08 06:59 | HMH.GSPN ---
Subjective Patient reports: still having pain (Headache better . Abdominal pain a little better .), flatus, bowel movement (She states that she had 3 bowel movements yesterday) Progress Note: A&P (1) Colon perforation Status: Acute (2) Status post right colon removal Status: Acute (3) Postoperative anemia Status: Acute (4) COPD (chronic obstructive pulmonary disease) Status: Acute (5) Tobacco use disorder Status: Acute (6) Pneumonia Status: Acute (7) Ovarian cyst Status: Acute (8) Postoperative ileus Status: Resolved Assessment and plan: Prolonged ileus now resolving. 3 bowel movements yesterday. Continue ambulation Full liquid diet ordered Exam Vital signs and Labs for Last 24 Hours: Temp Pulse Resp BP Pulse Ox 98.2 F 78 16 151/78 H 93 L 04/08/21 03:50 04/08/21 03:50 04/08/21 03:50 04/08/21 03:50 04/08/21 03:50 I & O for Last 24 hours: Intake & Output 04/05/21 04/06/21 04/07/21 04/08/21 11:59 11:59 11:59 11:59 Intake Total 5474 / 5474 4166 / 4166 0 / 0 3059 / 3059 Output Total 1175 / 1175 4 / 4 Balance 4299 / 4299 4162 / 4162 0 / 0 3059 / 3059 Weight 135 lb 2 oz 131 lb 4 oz 140 lb 8.997 oz Microbiology Reports for the Last 24 Hours: Microbiology 04/07/21 16:17 Sputum - Expectorated Sputum Gram Stain - Final 04/02/21 16:00 Blood Blood Culture - Final NO GROWTH AFTER 5 DAYS 04/02/21 16:00 Blood Blood Culture - Final NO GROWTH AFTER 5 DAYS - Constitutional no acute distress - *Routine Respiratory Exam Absent: respiratory distress - *Routine Cardiovascular Exam Present: RRR - *Routine Abdominal Exam Present: soft
--- NOTE | 2021-04-08 07:05 | PC.NURSE ---
REPORT GIVEN TO Herman VERDUZCO RN
[2021-04-08 07:25] LABS: Basophils % 0.5 % (0.1-2.0); Eosinophils # 0.2 K/mm3 (0.0-0.4); Eosinophils % 2.9 % (0.1-12.0); Hematocrit 38.9 % (37.0-47.0); Hemoglobin 11.9 g/dL (12.2-16.2); Lymphocytes # 0.9 K/mm3 (0.7-4.5); Mean Corpuscular HGB Conc 30.6 g/dL (31.8-35.4); Mean Corpuscular Hemoglobin 24.2 pg (27.0-31.2); Mean Corpuscular Volume 79.3 fl (81-99); Mean Platelet Volume 8.4 fl (7.4-10.4); Monocytes # 0.5 K/mm3 (0.1-1.0); Neutrophils # 5.5 K/mm3 (1.8-7.8); Neutrophils % 76.6 % (37.0-80.0); Platelet Count 367 K/mm3 (142-424); Red Blood Count 4.91 M/mm3 (4.20-5.40); Red Cell Distribution Width 18.9 % (11.5-17.5); White Blood Count 7.2 K/mm3 (4.8-10.8)
[2021-04-08 07:39] LABS: Anion Gap 11.7 mEq/L (5-15); Calcium 8.7 mg/dl (8.4-10.2); Carbon Dioxide 29 mmol/L (22.0-30.0); Chloride 103 mmol/L (98-107); Creatinine Clearance Estimated 128 mL/min (50-200); Estimated Glomerular Filt Rate 128 ml/min (>60); GFR (African American) 155 ML/MIN (>60); Glucose 111 mg/dl (74-100); Potassium 3.7 mmoL/L (3.5-5.1); Sodium 140 mmol/L (136-145)
[2021-04-08 07:40] LABS: Blood Urea Nitrogen < 2 mg/dl (7-17)
--- NOTE | 2021-04-08 09:13 | HMH.ACPN2 ---
Internal Medicine - PN: Subj *Date: 04/08/21 *Time: 09:13 Interval history: Patient states she is still having pain but it has improved from yesterday. She did have 3 bowel movements yesterday and was able to sleep better last night. Exam Vital signs and Labs for Last 24 Hours: Temp Pulse Resp BP Pulse Ox 98.2 F 78 16 151/78 H 93 L 04/08/21 03:50 04/08/21 03:50 04/08/21 03:50 04/08/21 03:50 04/08/21 03:50 Laboratory Results - last 24 hr 04/08/21 07:17: WBC 7.2 D, RBC 4.91 D, Hgb 11.9 L, Hct 38.9, MCV 79.3 L, MCH 24.2 L, MCHC 30.6 L, RDW 18.9 H, Plt Count 367 D, MPV 8.4, Neut % (Auto) 76.6, Lymph % (Auto) 13.0, [place] % (Auto) 7.0, Eos % (Auto) 2.9, Baso % (Auto) 0.5, Neut # (Auto) 5.5, Lymph # (Auto) 0.9, [place] # (Auto) 0.5, Eos # (Auto) 0.2, Baso # (Auto) 0.0 04/08/21 07:17: Sodium 140, Potassium 3.7, Chloride 103, Carbon Dioxide 29, Anion Gap 11.7, BUN < 2 L D, Creatinine 0.50 L, Estimated Creat Clear 128, Estimated GFR 128, Est GFR ( Amer) 155, Glucose 111 H, Calcium 8.7 I & O for Last 24 hours: Intake & Output 04/05/21 04/06/21 04/07/21 04/08/21 11:59 11:59 11:59 11:59 Intake Total 5474 / 5474 4166 / 4166 0 / 0 305 / 305 Output Total 1175 / 1175 4 / 4 Balance 4299 / 4299 4162 / 4162 0 / 0 305 / 305 Weight 135 lb 2 oz 131 lb 4 oz 140 lb 8.997 oz Microbiology Reports for the Last 24 Hours: Microbiology 04/07/21 16:17 Sputum - Expectorated Sputum Gram Stain - Final 04/02/21 16:00 Blood Blood Culture - Final NO GROWTH AFTER 5 DAYS 04/02/21 16:00 Blood Blood Culture - Final NO GROWTH AFTER 5 DAYS - Constitutional no acute distress - *Routine Respiratory Exam Present: CTA bilaterally - *Routine Cardiovascular Exam Present: RRR - *Routine Abdominal Exam Present: soft, normoactive bowel sounds, tenderness Comments: around surgical site - *Routine Extremities Exam Absent: cyanosis, clubbing, edema - *Routine Skin Exam Present: warm. Absent: rash - *Routine Neurological Exam Present: alert, oriented X3 Assessment and Plan (1) Colon perforation Status: Acute Category: Medical Code(s): K63.1 - Perforation of intestine (nontraumatic) (2) Status post right colon removal Status: Acute Category: Surgical Code(s): Z90.49 - Acquired absence of other specified parts of digestive tract (3) Postoperative anemia Status: Acute Category: Medical Code(s): D64.9 - Anemia, unspecified (4) COPD (chronic obstructive pulmonary disease) Status: Acute Category: Medical Code(s): J44.9 - Chronic obstructive pulmonary disease, unspecified (5) Tobacco use disorder Status: Acute Category: Medical Code(s): F17.200 - Nicotine dependence, unspecified, uncomplicated (6) Pneumonia Status: Acute Category: Medical Code(s): J18.9 - Pneumonia, unspecified organism (7) Ovarian cyst Status: Acute Category: Medical Code(s): N83.209 - Unspecified ovarian cyst, unspecified side (8) Postoperative ileus Status: Resolved Category: Medical Code(s): K91.89 - Other postprocedural complications and disorders of digestive system; K56.7 - Ileus, unspecified - Assessment and plan all Dx Assessment and Plan for all problems:: Her TAX ADJUSTER pump has been discontinued and [place] was ordered by Dr. Small. She will be started on a full liquid diet.
--- NOTE | 2021-04-08 09:59 | PC.NURSE ---
PT REQUESTING ENEMA, MESSAGE LEFT WITH BJ AT DR. MEEKS OFFICE
--- NOTE | 2021-04-08 13:15 | PC.NURSE ---
ENCOURAGED AND OFFERED TO AMBULATE WITH PT X MULTIPLE ATTEMPTS, PT REFUSED
--- NOTE | 2021-04-08 16:16 | PC.NURSE ---
PT HAS RESTED WELL THIS SHIFT, A&O X 4. PAIN WELL CONTROLLED WITH PO PAIN MEDS. VITAL SIGNS STABLE, AFEBRILE. LUNGS CTAB, WEARS O2 INTERMITTENTLY. HEART RATE REGULAR, NO EDEMA. ABD SOFT, BOWEL SOUNDS ACTIVE X 4 QUADS. DRESSING C/D/I. PT HAS HAD 2 OILY CLEAR BOWEL MOVEMENTS SINCE ENEMA. ENCOURAGED TO AMBULATE, PT DECLINES. VOIDS WITHOUT DIFFICULTY. IV PATENT. TOLERATED DIET WITHOUT N/V, POOR PO INTACT. CALL LIGHT WITHIN REACH. WILL CONTINUE TO MONITOR.
[2021-04-09 04:04] VITALS: BP 159/88; PULSE 78; RESP 18; TEMP 36.7; O2SAT 96
--- NOTE | 2021-04-09 04:15 | PC.NURSE ---
DRESSING CHANGED AT THIS TIME. ONE DIME SIZED AREA OF SEROSANG DRAINAGE NOTED TO INNER DRESSING. DRESSING REMOVED AND NEW DRESSING PACKED INTO OPEN AREAS. 4X4 AND TAPE APPLIED. PT TOLERATED WELL.
--- NOTE | 2021-04-09 04:30 | PC.NURSE ---
PATIENT HAS SLEPT THE MAJORITY OF THE SHIFT. PAIN RELIEVED WITH PRN MEDICATIONS. DRESSING CHANGED PER ORDER. C/D/I AT THIS TIME. A&0 X4. AMBULATES IN ROOM AND USES INCENTIVE SPIROMETER. LUNGS CTAB AND BOWELS ACTIVE X4 QUADRANTS. IV IN RIGHT A/C AND RIGHT FOREARM INFUSING WELL. PT IS TOLERATING FULL LIQUID DIET. CALL HERRERA IN REACH.
[2021-04-09 07:55] VITALS: BP 130/83; PULSE 80; RESP 18; TEMP 36.8; O2SAT 93
[2021-04-09 07:56] VITALS: BMI 191142.2
[2021-04-09 08:00] VITALS: O2SAT 97
--- NOTE | 2021-04-09 10:30 | PC.NURSE ---
Pt up walking the unit with standby assistance
--- NOTE | 2021-04-09 12:43 | HMH.GSPN ---
Subjective Narrative: Ms. Alvarado is a 56-year-old female status post right colectomy for perforated colon cancer. Continues to recover well. Tolerating clear liquids. Passing gas. Watery bowel movements anticipated. Pain reasonably controlled. No nausea or vomiting. Progress Note: A&P (1) Colon perforation Status: Acute (2) Status post right colon removal Status: Acute (3) Postoperative anemia Status: Acute (4) COPD (chronic obstructive pulmonary disease) Status: Acute (5) Tobacco use disorder Status: Acute (6) Pneumonia Status: Acute (7) Ovarian cyst Status: Acute (8) Postoperative ileus Status: Resolved Assessment and Plan for All Diagnoses:: 1. Right colon cancer. Status post right colectomy for perforated right colon cancer. Recovering well. Bowel function is returning. Advance diet. Decrease polypharmacy. Continue antibiotics. WBC normal. Afebrile. Begin discharge planning. Currently, from a surgical service, patient is ready for home discharge. Exam Vital signs and Labs for Last 24 Hours: Temp Pulse Resp BP Pulse Ox 98.2 F 80 18 130/83 97 04/09/21 07:55 04/09/21 07:55 04/09/21 07:55 04/09/21 07:55 04/09/21 08:00 I & O for Last 24 hours: Intake & Output 04/07/21 04/08/21 04/09/21 04/10/21 11:59 11:59 11:59 11:59 Intake Total 0 / 0 3059 / 3059 1036 / 1036 Balance 0 / 0 3059 / 3059 1036 / 1036 Weight 63.758 kg 53.722 kg Microbiology Reports for the Last 24 Hours: Microbiology 04/07/21 16:17 Sputum - Expectorated Sputum Gram Stain - Final 04/07/21 16:17 Sputum - Expectorated Sputum Sputum Culture - Preliminary - Constitutional no acute distress - *Routine Respiratory Exam Present: CTA bilaterally - *Routine Abdominal Exam Present: soft Comments: Appropriately tender. Midline incision with staple closure. No erythema. No evidence of surgical site infection.
--- NOTE | 2021-04-09 13:25 | P.PN_ITS ---
Internal Medicine - PN: Subj *Date: 04/09/21 *Time: 13:25 Interval history: The patient is feeling well and doing well. She has been seen by Dr. Campbell and cleared from a surgical standpoint. The patient would like to go home today if possible. Exam Vital signs and Labs for Last 24 Hours: Temp Pulse Resp BP Pulse Ox 98.2 F 80 18 130/83 97 04/09/21 07:55 04/09/21 07:55 04/09/21 07:55 04/09/21 07:55 04/09/21 08:00 I & O for Last 24 hours: Intake & Output 04/07/21 04/08/21 04/09/21 04/10/21 11:59 11:59 11:59 11:59 Intake Total 0 / 0 3059 / 3059 1036 / 1036 Balance 0 / 0 3059 / 3059 1036 / 1036 Weight 140 lb 8.997 oz 118 lb 7 oz Microbiology Reports for the Last 24 Hours: Microbiology 04/07/21 16:17 Sputum - Expectorated Sputum Gram Stain - Final 04/07/21 16:17 Sputum - Expectorated Sputum Sputum Culture - Preliminary - Constitutional no acute distress - *Routine HEENT Exam Head: Present: normocephalic Eye: Present: PERRL ENT: Present: mucous membranes moist - *Routine Neck Exam Absent: JVD - Routine Chest/Breast/Axilla Exam Chest wall: Absent: tenderness - *Routine Respiratory Exam Present: CTA bilaterally - *Routine Cardiovascular Exam Present: RRR - *Routine Abdominal Exam Present: normoactive bowel sounds, wound (Dressing in place). Absent: tenderness - *Routine Extremities Exam Absent: cyanosis, clubbing, edema - *Routine Skin Exam Present: warm. Absent: rash - *Routine Neurological Exam Present: alert (Pleasant, smiling), oriented X3 Assessment and Plan (1) Colon perforation Status: Acute Category: Medical Code(s): K63.1 - Perforation of intestine (nontraumatic) (2) Status post right colon removal Status: Acute Category: Surgical Code(s): Z90.49 - Acquired absence of other specified parts of digestive tract (3) Postoperative anemia Status: Acute Category: Medical Code(s): D64.9 - Anemia, unspecified (4) COPD (chronic obstructive pulmonary disease) Status: Acute Category: Medical Code(s): J44.9 - Chronic obstructive pul monary disease, unspecified (5) Tobacco use disorder Status: Acute Category: Medical Code(s): F17.200 - Nicotine dependence, unspecified, uncomplicated (6) Pneumonia Status: Acute Category: Medical Code(s): J18.9 - Pneumonia, unspecified organism (7) Ovarian cyst Status: Acute Category: Medical Code(s): N83.209 - Unspecified ovarian cyst, unspecified side (8) Postoperative ileus Status: Resolved Category: Medical Code(s): K91.89 - Other postprocedural complications and disorders of digestive system; K56.7 - Ileus, unspecified - Assessment and plan all Dx Assessment and Plan for all problems:: Will discharge to home. Continue on hydrocodone and acetaminophen for pain. Follow-up with Dr. Shi and with Dr. Cruz.
--- NOTE | 2021-04-09 14:10 | PC.NURSE ---
Pt IV D/C from [facility]. Discharge education and papers provided. Opportunity offered to ask questions. Pt off the unit at this time per wheelchair by [facility] staff
--- NOTE | 2021-04-11 22:43 | HMH.DCSUM ---
General - General Admission date:: 04/02/21 Discharge date: 04/09/21 HPI HPI: Sharon is a 56-year-old white female with a history of COPD who presented to the emergency room yesterday with a 2-week history of worsening abdominal pain. She she thought she was simply constipated but when the pain became severe yesterday she came to the ER. She has had no nausea or vomiting. She cannot recall her last bowel movement. She has no history of GI problems. She was evaluated in the ER. CT scan of the abdomen and pelvis showed a pneumoperitoneum with suspicion for carcinoma of the ascending colon with perforation. She was also noted to have a massively distended urinary bladder but she denied any urinary symptoms. Dr. Small was consulted from the ER and took the patient to surgery last evening where she underwent exploratory laparotomy, right colectomy, and small bowel resection. Gross surgical findings were apparently consistent with colon cancer. She has done well postoperatively. This morning she is complaining of breakthrough pain with the WAREHOUSE TRAFFIC SUPERVISOR pump. Denies shortness of breath. No nausea or vomiting. Hospital Course Hospital Course: She was stable postop and Dr. Small managed her postoperative pain and did order a blood transfusion due to a low H&H. Dr. Anand was consulted for incidental finding of atonic bladder. The patient had a repeat abdominal CT with contrast which showed a large central pelvic cystic mass extending into the lower abdomen. This could represent a benign or malignant ovarian neoplasm. There were postsurgical changes with a small amount of ascites and small residual pneumoperitoneum. The patient continued to complain of pain along with a severe headache. She was given Dilaudid for breakthrough pain. A chest x-ray was ordered as was an incentive spirometer. The chest x-ray showed a developing pneumonia in the right lung base and bilateral pleural effusions. She was already on Zosyn. She had a repeat chest x-ray on 04/06/2021 which showed increasing pneumonia with pleural effusions and a developing right upper lobe pneumonia. She was able to get up and move around the room, but she continued to have a horrible headache. Toradol was added for her headache and she was continued on duo nebs and encouraged to get out of bed and use her incentive spirometer. Her H&H remained low and she had to be given 2 more units of packed red blood cells. She had an acute abdominal series on 04/07/2021 which showed postsurgical changes in bilateral lower lobe atelectasis versus infiltrate with effusions and a suspecting developing infiltrate in the left upper lobe. The patient was not passing gas or having any bowel movements. Dr. Small ordered enemas. She finally had 3 bowel movements and did feel better. She was able to take ice chips, therefore surgery advanced her diet. Her WAREHOUSE TRAFFIC SUPERVISOR pump was discontinued and she was started on [place]. By 04/09/2021 she was feeling much better and surgery cleared her from a surgical standpoint to be discharged home. Her blood culture showed no growth. Her sputum culture grew out Stenotrophomonas maltophilia. She was discharged home and will follow up with both Dr. Small and Dr. Shi. Objective Vital signs: Temp Pulse Resp BP Pulse Ox 98.2 F 80 18 130/83 97 04/09/21 07:55 04/09/21 07:55 04/09/21 07:55 04/09/21 07:55 04/09/21 08:00 Narrative: - Constitutional no acute distress - *Routine HEENT Exam Head: Present: normocephalic Eye: Present: PERRL ENT: Present: mucous membranes moist - *Routine Neck Exam Absent: JVD - Routine Chest/Breast/Axilla Exam Chest wall: Absent: tenderness - *Routine Respiratory Exam Present: CTA bilaterally - *Routine Cardiovascular Exam Present: RRR - *Routine Abdominal Exam Present: normoactive bowel sounds, wound (Dressing in place). Absent: tenderness - *Routine Extremities Exam Absent: cyanosis, clubbing, edema -
== END 2021-04-09 14:12 | disposition home or self-care (01) | DRG 329 ==
LOC: UTC 12:13 → ER 12:27 → 2ND 17:20 → OB 04-06 18:19
PROVIDERS: Surgery; Admitting Provider Family Medicine; Emergency Provider Student in an Organized Health Care Education/Training Program; PCP Family Medicine; Visit Provider Family Medicine
PROC: 0DBF0ZZ Excision of Right Large Intestine, Open Approach (ICD-10-PCS; CPT 49000; principal; 2021-04-02 18:30)
DX: K63.1 Perforation of intestine (nontraumatic) (principal); J18.9 Pneumonia, unspecified organism; C18.2 Malignant neoplasm of ascending colon; K91.89 Other postprocedural complications and disorders of digestive system; K56.7 Ileus, unspecified; Z20.822 Contact with and (suspected) exposure to COVID-19; F17.210 Nicotine dependence, cigarettes, uncomplicated; J44.9 Chronic obstructive pulmonary disease, unspecified; R33.9 Retention of urine, unspecified
CPT/HCPCS: 44140; 36415; 71045; 74021; 74177; 74178; 80048; 80053; 81001; 83605; 83690; 84703; 85007; 85014; 85018; 85025; 86850; 87040; 87070; 87077; 87186; 87205; 93005; 94640; 94761; 96365; 96366; 96367; 96375; 96376; 99283; C9803; J2405; J2543; J2710; P9016; Q9958; Q9967; U0003; U0005

== ENCOUNTER → 2022-04-04 06:18 | Outpatient (CLI) | payer BC, SELFPAY ==
[2022-04-04 18:19] LABS: Alanine Aminotransferase 19 U/L (12-78); Albumin Level 4.4 g/dl (3.5-5.0); Albumin/Globulin Ratio 1.6 (1.1-1.8); Alkaline Phosphatase 300 U/L (38-126); Anion Gap 17.1 mEq/L (5-15); Aspartate Amino Transferase 27 U/L (14-36); Bilirubin,Total 0.5 mg/dl (0.2-1.3); Blood Urea Nitrogen 15 mg/dl (7-17); Calcium 9.6 mg/dl (8.4-10.2); Carbon Dioxide 28 mmol/L (22.0-30.0); Chloride 102 mmol/L (98-107); Estimated Glomerular Filt Rate 87 ml/min (>60); GFR (African American) 105 ML/MIN (>60); Globulin 2.8 g/dL (1.3-3.2); Glucose 105 mg/dl (74-100); Potassium 4.1 mmoL/L (3.5-5.1); Sodium 143 mmol/L (136-145); Total Protein,Serum 7.2 g/dl (6.3-8.2)
[2022-04-04 18:22] LABS: Basophils # 0.1 K/mm3 (0-0.2); Basophils % 0.8 % (0.1-2.0); Eosinophils # 0.2 K/mm3 (0.0-0.4); Eosinophils % 1.3 % (0.1-12.0); Hematocrit 49.2 % (37.0-47.0); Hemoglobin 15.7 g/dL (12.2-16.2); Lymphocytes # 1.4 K/mm3 (0.7-4.5); Lymphocytes % 9.9 % (10-50); Mean Corpuscular Hemoglobin 30.5 pg (27.0-31.2); Mean Corpuscular Volume 95.5 fl (81-99); Monocytes # 0.6 K/mm3 (0.1-1.0); Monocytes % 3.8 % (1.7-9.3); Neutrophils # 12.3 K/mm3 (1.8-7.8); Neutrophils % 84.3 % (37.0-80.0); Platelet Count 228 K/mm3 (142-424); Red Blood Count 5.16 M/mm3 (4.20-5.40); Red Cell Distribution Width 13.3 % (11.5-17.5); White Blood Count 14.6 K/mm3 (4.8-10.8)
[2022-04-04 18:37] LABS: 25-OH Vitamin D, Total 42.4 ng/mL (30-100)
== END ==
PROVIDERS: PCP Nurse Practitioner; Visit Provider Nurse Practitioner
DX: Z85.038 Personal history of other malignant neoplasm of large intestine (principal); E55.9 Vitamin D deficiency, unspecified
CPT/HCPCS: 80053; 82306; 85025

== ENCOUNTER → 2022-07-17 13:51 | Outpatient (CLI) | payer BC, SELFPAY ==
--- NOTE | 2022-07-17 13:56 | XR_ITS ---
FINAL REPORT CLINICAL HISTORY: COPD exacerbation, pneumonia, SMOKER COMPARISON: 04/06/2021 FINDINGS: Two views of the chest were obtained. The heart size and pulmonary vascularity are within normal limits. The mediastinum is normal. There is bilateral apical scarring and pleural thickening. There is improved pulmonary opacities and pleural effusions since the prior exam. There is no pneumothorax. The bony thorax is intact. IMPRESSION: Bilateral apical scarring and pleural thickening. Improved pulmonary opacities and pleural effusions since the prior exam. Reviewed, Interpreted and Dictated by Chalo Mosher III, MD Transcribed by Catie Saunders Authenticated and [facility]
== END ==
PROVIDERS: PCP Nurse Practitioner; Visit Provider Nurse Practitioner
DX: J18.9 Pneumonia, unspecified organism (principal); J44.1 Chronic obstructive pulmonary disease with (acute) exacerbation
CPT/HCPCS: 71046

== ENCOUNTER → 2022-10-16 13:30 | Outpatient (CLI) | payer BC, SELFPAY ==
[2022-10-16 18:10] LABS: Adenovirus,PCR Not Detected (NotDetected); Bordetella Pertussis Not Detected (NotDetected); Chlamydophila Pneumoniae, PCR Not Detected (NotDetected); Coronavirus 19, PCR Not Detected (NotDetected); Coronavirus 229E Not Detected (NotDetected); Coronavirus NL63 Not Detected (NotDetected); Coronavirus OC43 Not Detected (NotDetected); Coronovirus HKU1,PCR Not Detected (NotDetected); Human Metapneumovirus Not Detected (NotDetected); Influenza A, PCR Not Detected (NotDetected); Influenza AH1, 2009 Not Detected (NotDetected); Influenza AH1, PCR Not Detected (NotDetected); Influenza AH3,PCR Not Detected (NotDetected); Influenza B, PCR Not Detected (NotDetected); Mycoplasma Pneumoniae, PCR Not Detected (NotDetected); Parainfluenza 1, PCR Not Detected (NotDetected); Parainfluenza 2, PCR Not Detected (NotDetected); Parainfluenza 3, PCR Not Detected (NotDetected); Parainfluenza 4, PCR Not Detected (NotDetected); Respiratory Syncytial Virus Not Detected (NotDetected); Rhinovirus/Enterovirus Not Detected (NotDetected)
[2022-10-16 18:34] LABS: Basophils % 0.6 % (0.1-2.0); Eosinophils # 0.1 K/mm3 (0.0-0.4); Hematocrit 45.3 % (37.0-47.0); Hemoglobin 14.6 g/dL (12.2-16.2); Lymphocytes % 27.7 % (10-50); Mean Corpuscular HGB Conc 32.1 g/dL (31.8-35.4); Mean Corpuscular Hemoglobin 30.2 pg (27.0-31.2); Mean Platelet Volume 10.7 fl (7.4-10.4); Monocytes # 0.3 K/mm3 (0.1-1.0); Monocytes % 4.9 % (1.7-9.3); Neutrophils # 4.6 K/mm3 (1.8-7.8); Neutrophils % 64.8 % (37.0-80.0); Platelet Count 243 K/mm3 (142-424); Red Blood Count 4.82 M/mm3 (4.20-5.40); Red Cell Distribution Width 13.5 % (11.5-17.5)
== END ==
PROVIDERS: PCP Nurse Practitioner; Visit Provider Nurse Practitioner
DX: J06.9 Acute upper respiratory infection, unspecified (principal); R51.9 Headache, unspecified; H92.02 Otalgia, left ear
CPT/HCPCS: 85025; 87581; 87632; 87798; C9803; U0003; U0005

== ENCOUNTER → 2022-12-07 23:10 | Outpatient (CLI) | payer BC, SELFPAY | LOC: LAB.DROPOF 23:10 | PROVIDERS: PCP Nurse Practitioner; Visit Provider Nurse Practitioner | DX: J06.9 Acute upper respiratory infection, unspecified (principal); J44.1 Chronic obstructive pulmonary disease with (acute) exacerbation | CPT/HCPCS: C9803; U0003; U0005 ==

== ENCOUNTER → 2023-05-02 14:00 | Outpatient (CLI) | payer BC, SELFPAY ==
[2023-05-02 18:32] LABS: Coronavirus 19, PCR Not Detected (NotDetected); Influenza A, PCR Not Detected (NotDetected); Influenza B, PCR Not Detected (NotDetected)
[2023-05-02 18:44] LABS: Basophils % 0.2 % (0.1-2.0); Eosinophils # 0.1 K/mm3 (0.0-0.4); Eosinophils % 1.2 % (0.1-12.0); Hematocrit 40.2 % (37.0-47.0); Hemoglobin 13.6 g/dL (12.2-16.2); Lymphocytes # 1.4 K/mm3 (0.7-4.5); Lymphocytes % 13.8 % (10-50); Mean Corpuscular HGB Conc 33.9 g/dL (31.8-35.4); Mean Corpuscular Hemoglobin 32.1 pg (27.0-31.2); Mean Corpuscular Volume 94.7 fl (81-99); Mean Platelet Volume 10.3 fl (7.4-10.4); Monocytes # 0.5 K/mm3 (0.1-1.0); Monocytes % 4.9 % (1.7-9.3); Neutrophils # 8.3 K/mm3 (1.8-7.8); Neutrophils % 79.8 % (37.0-80.0); Platelet Count 196 K/mm3 (142-424); Red Blood Count 4.24 M/mm3 (4.20-5.40); Red Cell Distribution Width 13.4 % (11.5-17.5); White Blood Count 10.4 K/mm3 (4.8-10.8)
[2023-05-02 18:51] LABS: Anion Gap 12.3 mEq/L (5-15); Blood Urea Nitrogen 10 mg/dl (7-17); Carbon Dioxide 24 mmol/L (22.0-30.0); Chloride 106 mmol/L (98-107); Estimated Glomerular Filt Rate 103 ml/min (>60); GFR (African American) 125 ML/MIN (>60); Glucose 166 mg/dl (74-100); Potassium 3.3 mmoL/L (3.5-5.1); Sodium 139 mmol/L (136-145)
== END ==
PROVIDERS: PCP Nurse Practitioner; Visit Provider Nurse Practitioner
DX: J06.9 Acute upper respiratory infection, unspecified (principal); J44.1 Chronic obstructive pulmonary disease with (acute) exacerbation; Z79.899 Other long term (current) drug therapy
CPT/HCPCS: 80048; 85025; 87636

== ENCOUNTER → 2023-05-29 19:14 | Outpatient (CLI) | payer BC, SELFPAY ==
[2023-05-29 19:46] LABS: Basophils % 0.6 % (0.1-2.0); Eosinophils # 0.2 K/mm3 (0.0-0.4); Eosinophils % 2.1 % (0.1-12.0); Hematocrit 44.9 % (37.0-47.0); Hemoglobin 14.9 g/dL (12.2-16.2); Lymphocytes # 2.1 K/mm3 (0.7-4.5); Mean Corpuscular HGB Conc 33.1 g/dL (31.8-35.4); Mean Corpuscular Hemoglobin 31.6 pg (27.0-31.2); Mean Corpuscular Volume 95.3 fl (81-99); Mean Platelet Volume 10.3 fl (7.4-10.4); Monocytes # 0.3 K/mm3 (0.1-1.0); Neutrophils # 4.2 K/mm3 (1.8-7.8); Neutrophils % 61.3 % (37.0-80.0); Platelet Count 239 K/mm3 (142-424); Red Blood Count 4.71 M/mm3 (4.20-5.40); White Blood Count 6.8 K/mm3 (4.8-10.8)
[2023-05-29 19:50] LABS: Alanine Aminotransferase 16 U/L (12-78); Albumin Level 3.9 g/dl (3.5-5.0); Albumin/Globulin Ratio 1.4 (1.1-1.8); Alkaline Phosphatase 200 U/L (38-126); Anion Gap 8.9 mEq/L (5-15); Aspartate Amino Transferase 50 U/L (14-36); Bilirubin,Total 0.3 mg/dl (0.2-1.3); Blood Urea Nitrogen 16 mg/dl (7-17); Calcium 9.1 mg/dl (8.4-10.2); Carbon Dioxide 26 mmol/L (22.0-30.0); Chloride 105 mmol/L (98-107); Estimated Glomerular Filt Rate 103 ml/min (>60); GFR (African American) 125 ML/MIN (>60); Globulin 2.8 g/dL (1.3-3.2); Glucose 105 mg/dl (74-100); Potassium 3.9 mmoL/L (3.5-5.1); Sodium 136 mmol/L (136-145); Total Protein,Serum 6.7 g/dl (6.3-8.2)
[2023-05-29 20:06] LABS: 25-OH Vitamin D, Total 51.1 ng/mL (30-100)
[2023-05-29 20:21] LABS: Thyroid Stimulating Hormone 1.75 uIU/mL (0.465-4.68)
[2023-05-29 20:51] LABS: Hemoglobin A1C 5.6 % (4.0-6.0)
== END ==
PROVIDERS: PCP Nurse Practitioner; Visit Provider Nurse Practitioner
DX: J44.9 Chronic obstructive pulmonary disease, unspecified (principal); R33.9 Retention of urine, unspecified; Z72.0 Tobacco use
CPT/HCPCS: 80053; 82306; 83036; 84443; 85025

== ENCOUNTER 2023-09-19 18:37 | Outpatient (CLI) | payer OTHER, SELFPAY ==
[2023-09-19 17:40] LABS: Adenovirus,PCR Not Detected (NotDetected); Coronavirus NL63 Not Detected (NotDetected); Coronovirus HKU1,PCR Not Detected (NotDetected)
[2023-09-19 17:41] LABS: Coronavirus 19, PCR Not Detected (NotDetected); Coronavirus 229E Not Detected (NotDetected); Coronavirus OC43 Not Detected (NotDetected); Human Metapneumovirus Not Detected (NotDetected); Influenza A, PCR Not Detected (NotDetected); Influenza AH1, 2009 Not Detected (NotDetected); Influenza AH1, PCR Not Detected (NotDetected); Influenza AH3,PCR Not Detected (NotDetected); Influenza B, PCR Not Detected (NotDetected); Parainfluenza 1, PCR Not Detected (NotDetected); Parainfluenza 2, PCR Not Detected (NotDetected); Parainfluenza 3, PCR Not Detected (NotDetected); Parainfluenza 4, PCR Not Detected (NotDetected); Respiratory Syncytial Virus Not Detected (NotDetected); Rhinovirus/Enterovirus Not Detected (NotDetected)
== END 2023-09-19 23:59 ==
LOC: LAB.DROPOF 18:37
PROVIDERS: PCP Nurse Practitioner; Visit Provider Nurse Practitioner
DX: J06.9 Acute upper respiratory infection, unspecified (principal); R51.9 Headache, unspecified; R09.81 Nasal congestion; R05.9 Cough, unspecified; R06.2 Wheezing
CPT/HCPCS: 87632; 87635

== ENCOUNTER 2023-09-21 15:53 | Inpatient (IN) | payer OTHER, SELFPAY ==
[2023-09-21] VITALS (13 sets, daily range): BP systolic 109–175; BP diastolic 55–101; PULSE 94–149; RESP 24–47; TEMP 37.1–39.2; O2SAT 76–98; BMI 20.9; BMI 20.8
--- NOTE | 2023-09-21 16:02 | ECG_ITS ---
APPROVED REPORT Exam: Resting ECG HR:142 bpm ECG Measurements Heart Rate 142 AXES PA 132 P 81 QRSd 94 QRS 89 QT 270 T 78 QTc 352 Conclusion SINUS TACHYCARDIA, POSSIBLE ATRIAL FLUTTER ABNORMAL RHYTHM ECG UNCONFIRMED REPORT Electronically signed by : NATALY KISER, 09/26/2023 06:04:21
--- NOTE | 2023-09-21 16:08 | XR_ITS ---
FINAL REPORT CLINICAL HISTORY: Shortness of breath, hypoxemia COMPARISON: 07/17/2022 FINDINGS: A portable view of the chest was obtained. Cardiac and mediastinal silhouettes are within normal limits. There is emphysema with chronic increased interstitial markings. No focal infiltrate. There is no pleural effusion or pneumothorax. IMPRESSION: No acute process on this portable exam. Emphysema with chronic changes. Reviewed, Interpreted and Dictated by Lisa Rivero MD Transcribed by Aundrea Jackman Authenticated and [facility]
[2023-09-21] MEDS: 0.9 % SODIUM CHLORIDE 1000ML 1,000 ML 999 ML IV ×2 (16:17→17:46)
[2023-09-21] MEDS: IPRATROPIUM/ALBUTEROL 3 ML NEB 9 ML IH (16:17)
[2023-09-21 16:20] LABS: Basophils # 0.1 K/mm3 (0-0.2); Basophils % 0.8 % (0.1-2.0); Eosinophils # 0.1 K/mm3 (0.0-0.4); Eosinophils % 0.8 % (0.1-12.0); Hematocrit 45.5 % (37.0-47.0); Hemoglobin 14.9 g/dL (12.2-16.2); Lymphocytes # 0.8 K/mm3 (0.7-4.5); Lymphocytes % 8.7 % (10-50); Mean Corpuscular HGB Conc 32.8 g/dL (31.8-35.4); Mean Corpuscular Hemoglobin 31.4 pg (27.0-31.2); Mean Corpuscular Volume 95.8 fl (81-99); Mean Platelet Volume 9.3 fl (7.4-10.4); Monocytes # 0.5 K/mm3 (0.1-1.0); Neutrophils # 8.3 K/mm3 (1.8-7.8); Neutrophils % 84.8 % (37.0-80.0); Platelet Count 177 K/mm3 (142-424); Red Blood Count 4.75 M/mm3 (4.20-5.40); Red Cell Distribution Width 14.1 % (11.5-17.5); White Blood Count 9.8 K/mm3 (4.8-10.8)
--- NOTE | 2023-09-21 16:27 | PC.NURSE ---
called resp to let them know about vbg order and michael clayton was at lab
[2023-09-21 16:28] LABS: Alanine Aminotransferase 27 U/L (12-78); Albumin Level 4.3 g/dl (3.5-5.0); Albumin/Globulin Ratio 1.4 (1.1-1.8); Alkaline Phosphatase 144 U/L (38-126); Anion Gap 10.5 mEq/L (5-15); Aspartate Amino Transferase 43 U/L (14-36); Bilirubin,Total 0.6 mg/dl (0.2-1.3); Blood Urea Nitrogen 8 mg/dl (7-17); Calcium 9.2 mg/dl (8.4-10.2); Carbon Dioxide 27 mmol/L (22.0-30.0); Chloride 105 mmol/L (98-107); Creatinine Clearance Estimated 83 mL/min (50-200); Estimated Glomerular Filt Rate 86 ml/min (>60); GFR (African American) 104 ML/MIN (>60); Glucose 117 mg/dl (74-100); Potassium 3.5 mmoL/L (3.5-5.1); Sodium 139 mmol/L (136-145); Total Protein,Serum 7.3 g/dl (6.3-8.2)
--- NOTE | 2023-09-21 16:31 | ED_ITS ---
Discharge Plan Disposition Patient Disposition: Admitted Clinical Impressions Clinical Impression: Influenza A, Shortness of breath, COPD exacerbation, Acute hypoxemic respiratory failure Discharge ED Provider: Damian Terry HPI General Chief Complaint: Shortness of Breath/Dyspnea Stated Complaint: SOA Time Seen by Provider: 09/21/23 15:54 Mode of Arrival: Wheelchair Source of Information: Patient Limitations: No Limitations Description of Symptoms (Recalled from ER Triage Doc. by RN): Patient reports being short of air since Sunday. States she was seen by her PCP and swabbed and that everything was negative. History of Present Illness HPI narrative: For 8-year-old female history of COPD still currently smoking a moderate, hypertension, hyperlipidemia, colon cancer now in remission presenting with shortness of breath. She has been feeling short of breath since Sunday, 2 days prior to this visit. States that she has been feeling worse ever since. No chest pain, fevers or chills, but has had cough productive of yellow sputum. Has now been on cefdinir and prednisone for 2 days, but feels that she is getting worse. Shortness of breath is exertional, patient has no PND orthopnea. No lower extremity swelling. Related Data Home Medications Medication Instructions Recorded Confirmed lorazepam 1 mg tablet 1 mg PO TID PRN 04/04/22 09/19/23 sertraline 25 mg tablet 25 mg PO DAILY 04/04/22 09/19/23 Previous Rx's Medication Instructions Recorded cholecalciferol (vitamin D3) 125 See Rx Instructions .Route 03/12/23 mcg (5,000 unit) tablet (Vitamin .COMPLEX #30 tabs D3) albuterol sulfate 90 mcg/actuation 2 puff inhalation Q6HP PRN 04/09/23 aerosol inhaler Shortness Of Breath #8.5 grams fluticasone fur. 100 mcg-umeclid 1 inh inhalation DAILY #60 ea 04/09/23 62.5 mcg-vilant 25 mcg inhalat.powder (Trelegy Ellipta) cetirizine 10 mg tablet See Rx Instructions .Route 04/24/23 .COMPLEX #30 tabs quetiapine 50 mg tablet 50 mg PO QPMWITHMEAL SLEEP #90 tabs 04/24/23 tlywbltrcighnlh-gzogjdnfiuhnurt-MZ 5 ml PO Q4-6H PRN cold symptoms 02/28/24 2 mg-30 mg-10 mg/5 mL oral syrup #240 mL (Bromfed DM) cefdinir 300 mg capsule 300 mg PO BID #20 caps 09/19/23 prednisone 20 mg tablet 20 mg PO .COMPLEX #15 tabs 09/19/23 Allergies Allergy/AdvReac Type Severity Reaction Status Date / Time No Known Allergies Allergy Verified 09/19/23 13:18 [facility] Disclaimer: The information contained in this section may have been updated after the patient was seen, as this information can be updated by other users. Medical History Anxiety Colon perforation COPD exacerbation Ovarian cyst Large complex cystic lesion most likely ovarian in origin. Pneumonia Postoperative anemia Postoperative ileus Tobacco use disorder Surgical History History of cholecystectomy Status post right colon removal Family History Other Cancer Hypertension Social History Smoking Status: Current every day smoker tobacco type: cigarettes packs per day: 1 second hand exposure: Yes alcohol intake: never substance use type: denies use current occupational status: employed Travel in the last 8 weeks: None ROS Obtained: Yes All systems reviewed & no additional complaints except as documented Physical Exam General General appearance: alert and in distress (respiratory) Neck Neck exam: Present trachea midline Chest Chest inspection: Present normal inspection and symmetric chest wall rise Respiratory Respiratory exam: Present respiratory distress, wheezes, accessory muscle use and prolonged expiratory phase; Absent stridor Cardiovascular Cardiovascular exam: Present normal rhythm and tachycardia Abdominal Exam Abdominal exam: Present soft; Absent distention or tenderness Extremities Exam Extremities exam: Absent edema Neurological Exam Neurological exam: Present alert, oriented X3 and CN II-XII intact Skin Skin exam: Present warm and dry; Absent cyanosis, diaphoresis or pallor HEART Score HEART Score HEART Score assessment performed?: Yes History (anamnesis): Slightly suspicious ECG: Normal Age: 45-65 years Risk factors: 3 or more risk factors Troponin: </= normal limit HEART Score: 3 Critical Care Critical Care Time Critical Care Time: Yes (respiratory) Attestation: On 09/21/23, the high probability of a clinically significant, sudden or life threatening deterioration of the following system(s) required my full and direct attention, intervention and personal management. The time I documented below is in addition to time spent performing reported procedures but includes the following listed in this critical care notation. Total Time Total Critical Care Time: 45 Medical Decision Making Medical Records Medical records reviewed: Yes I reviewed the patient's medical records. Nadeem Inquiry Pt receiving controlled substance: No Nadeem was queried for this patient: No Vital Signs Vital Signs: 09/21/23 15:54 09/21/23 16:01 09/21/23 16:30 Pulse Rate 147 H 140 H Pulse Rate [Radial] 148 H Respiratory Rate 24 28 H 28 H Blood Pressure 166/101 H 175/93 H Blood Pressure [Right Arm] 166/101 H Blood Pressure Mean 140 120 Blood Pressure Mean [Right Arm] 122 Blood Pressure Source [Right Arm] Automatic Cuff Blood Pressure Position [Right Arm] Sitting 02 Sat by Pulse Oximetry 76 L 87 L 98 Oxygen Delivery Method Room Air Room Air Nasal Cannula Oxygen Flow Rate (LPM) 4 09/21/23 17:01 09/21/23 18:00 09/21/23 18:23 Pulse Rate 149 H 142 H 145 H Pulse Rate [Radial] Respiratory Rate 30 H 26 H 47 H Blood Pressure 163/87 H 145/72 H 150/66 H Blood Pressure [Right Arm] Blood Pressure Mean 96 Blood Pressure Mean [Right Arm] Blood Pressure Source [Right Arm] Blood Pressure Position [Right Arm] 02 Sat by Pulse Oximetry 97 97 93 L Oxygen Delivery Method BiPAP Nasal Cannula BiPAP Oxygen Flow Rate (LPM) 4 09/21/23 18:30 Pulse Rate 135 H Pulse Rate [Radial] Respiratory Rate 39 H Blood Pressure 127/75 Blood Pressure [Right Arm] Blood Pressure Mean Blood Pressure Mean [Right Arm] Blood Pressure Source [Right Arm] Blood Pressure Position [Right Arm] 02 Sat by Pulse Oximetry 94 L Oxygen Delivery Method BiPAP Oxygen Flow Rate (LPM) Lab Data Labs: Lab Results 09/21/23 16:07: VBG pH 7.43 H, VBG pCO2 41.1, VBG pO2 78.4 H, VBG HCO3 26.4, VBG Total CO2 27.7 H, VBG O2 Saturation 96.3 H, VBG Base Excess 2.0, VBG Lactic Acid 1.5 09/21/23 16:08: WBC 9.8, RBC 4.75, Hgb 14.9, Hct 45.5, MCV 95.8, MCH 31.4 H, MCHC 32.8, RDW 14.1, Plt Count 177, MPV 9.3, Neut % (Auto) 84.8 H, Lymph % (Auto) 8.7 L, [place] % (Auto) 5.0, Eos % (Auto) 0.8, Baso % (Auto) 0.8, Neut # (Auto) 8.3 H, Lymph # (Auto) 0.8, [place] # (Auto) 0.5, Eos # (Auto) 0.1, Baso # (Auto) 0.1, Sodium 139, Potassium 3.5, Chloride 105, Carbon Dioxide 27, Anion Gap 10.5, BUN 8, Creatinine 0.70, Estimated Creat Clear 83, Estimated GFR 86, Est GFR ( Amer) 104, Glucose 117 H, Calcium 9.2, Total Bilirubin 0.6, AST 43 H, ALT 27, Alkaline Phosphatase 144 H, Troponin I < 0.01, NT-Pro-B Natriuret Pep 278 H, Total Protein 7.3, Albumin 4.3, Globulin 3.0, Albumin/Globulin Ratio 1.4 09/21/23 18:15: SARS-CoV-2 (PCR) Not detected, Influenza A Untype (PCR) Detected A, Influenza Type B (PCR) Not detected 09/21/23 19:20: Troponin I 0.02 09/21/23 16:08 09/21/23 16:08 Response Orders (Tests/Meds): ED MEDICATIONS Generic Name Dose Route Start Last Admin Trade Name Freq PRN Reason Stop Dose Admin Miscellaneous 1 each 09/21/23 18:15 Vancomycin Consult Request NOTAPPLIC 10/21/23 18:14 [facility]ULT [facility] Oseltamivir Phosphate 75 mg 09/21/23 21:00 Oseltamivir 75mg Capsule PO 09/26/23 09:01 BID [facility] Discontinued Medications Generic Name Dose Route Start Last Admin Trade Name Freq PRN Reason Stop Dose Admin Acetaminophen 1,000 mg 09/21/23 18:06 09/21/23 18:11 Acetaminophen 1,000mg/100ml Vial IV 09/21/23 18:07 1,000 mg ONCE ONE Administration Albuterol/Ipratropium 9 ml 09/21/23 16:07 09/21/23 16:17 Ipratropium/Albuterol 3 Ml Neb IH 09/21/23 16:08 9 ml ONCE ONE Administration Sodium Chloride 1,000 mls @ 999 mls/hr 09/21/23 16:07 09/21/23 16:17 Sod Chlor 0.9% 1000ml Bag IV 09/21/23 17:07 999 mls/hr .Q1H1M ONE Administration Sodium Chloride 1,000 mls @ 999 mls/hr 09/21/23 17:03 09/21/23 17:46 Sod Chlor 0.9% 1000ml Bag IV 09/21/23 18:03 999 mls/hr .Q1H1M ONE Administration Ampicillin Sodium/Sulbactam 100 mls @ 200 mls/hr 09/21/23 18:06 09/21/23 18:11 Sodium 3 gm/ Sodium Chloride IV 09/21/23 18:07 200 mls/hr ONCE ONE Administration Vancomycin/PEG/NADA/Lysine/Water 1.25 gm in 250 mls @ 125 mls/hr 09/21/23 18:1 5 Vancomycin 1.25gm/250ml (Peg) Premix IV 09/21/23 20:14 ONCE ONE Iopamidol 70 ml 09/21/23 17:26 09/21/23 17:28 Iopamidol-370 (76%);100ml Bottle IV 09/21/23 17:27 70 ml ONCE ONE Administration Methylprednisolone Sodium Succinate 125 mg 09/21/23 16:35 09/21/23 16:44 Methylprednisolone Sod Succ 125mg Vial IV 09/21/23 16:36 125 mg ONCE ONE Administration Sodium Chloride 10 ml 09/21/23 17:26 09/21/23 17:27 Sodium Chloride 0.9% 10ml Syr (Rad Only) IV 09/21/23 17:27 10 ml ONCE ONE Administration Sodium Chloride 50 ml 09/21/23 17:26 09/21/23 17:27 0.9 % Sodium Chloride 50 Ml Vial IV 09/21/23 17:27 50 ml ONCE ONE Administration ORDERS Category Date Time Status CT angio chest PE protocol Stat Cat Scan 09/21/23 17:03 Completed POCUS Point of Care (ER Only) Stat Exams 09/21/23 16:08 Completed XR chest portable Stat Exams 09/21/23 16:08 Completed Brain Natriuretic Peptide Stat Lab 09/21/23 16:08 Completed CBC w/Auto Diff [Complete Blood Count Auto Diff] Stat Lab 09/21/23 16:08 Completed CMP [Comprehensive Metabolic Panel] Stat Lab 09/21/23 16:08 Completed Lactate Venous Stat Lab 09/21/23 16:07 Completed Rapid PCR Covid and Flu A/B Stat Lab 09/21/23 18:15 Completed Troponin I Q3H Lab 09/21/23 19:20 Completed Troponin I Q3H Lab 09/21/23 22:15 Ordered Troponin I Stat Lab 09/21/23 16:08 Completed VBG [Venous Blood Gas] Stat RT 09/21/23 16:07 Completed MDM Narrative Medical Decision Narrative: 58-year-old female history of COPD still currently smoking a moderate, hypertension, hyperlipidemia, colon cancer now in remission presenting with shortness of breath. She has been feeling short of breath since Sunday, 2 days prior to this visit. States that she has been feeling worse ever since. No chest pain, fevers or chills, but has had cough productive of yellow sputum. Has now been on cefdinir and prednisone for 2 days, but feels that she is gettin g worse. Shortness of breath is exertional, patient has no PND orthopnea. No lower extremity swelling. It should be noted the patient currently has COPD which is not currently at goal and still smoking, complicating care. History was obtained via conversation with patient. On arrival, patient hemodynamically stable, alert, oriented x4, appropriate, GCS 15, moving all extremities spontaneously, pupils equal and reactive to light. Full physical exam performed and significant for female who is in mild respiratory distress. She has diffuse wheezes, breathing through pursed lips, saturating around 80% on room air, but no evidence of cyanosis. Patient is tachycardic with no extra cardiac sounds. No lower extremity edema, neurologically intact.. Differential includes COPD exacerbation, CHF, PE, pneumothorax, ACS, FL, pneumonia, among others. Patient was given DuoNebs, Solu-Medrol, fluid bolus for symptomatic management and correction of underlying abnormalities. Workup independently interpreted and significant for nonactionable CBC or chemistry. VBG with normal pH, normal CO2, normal oxygen and lactic acid 1.5. Nonactionable chemistry. Patient's troponin is negative, BNP is negative as well. COVID/flu swab positive for influenza A. See radiology read for full review of final results. Chest x-ray without acute cardiopulmonary airspace disease. CT PE was ordered due to persistent tachycardia and hypoxemia. This was negative for any acute PE, but concerning for possible viral etiology. Independent interpretation of EKG shows sinus tachycardia 142 beats a minute with no ST or T wave changes concerning for acute ischemia. MO, QRS, QT intervals within normal limits. Patient placed on continuous cardiac monitoring and continuous pulse ox with initial blood pressure 175/93, heart rate 140, saturation 94% on 2 L nasal cannula. Heart score 3. On reevaluation, patient still requiring 3 to 4 L nasal cannula to saturate greater than 90%, tachypneic 25 to 30 breaths/min. Hospital medicine was contacted and case was discussed at length, patient to be admitted for acute hypoxemic respiratory failure and flu pneumonia. Given patient presentation, workup, history, this most likely represents acute hypoxemic respiratory failure in the setting of flu pneumonia. Because patient high risk for clinical decompensation, deemed appropriate for inpatient admission. Results were relayed to patient who voiced understanding and [facility] Patient was admitted to the hospital for further definitive management.
[2023-09-21 16:34] LABS: Lactate Venous 1.5 mmol/L (0.4-2.0); VBG HCO3 26.4 mmol/L (23-30); VBG Oxygen Saturation 96.3 % (50-70); VBG PCO2 41.1 mmol/L (35-51); VBG PH 7.43 mmol/L (7.31-7.41); VBG PO2 78.4 mmol/L (28-40); VBG Total CO2 27.7 mmol/L (23-27)
[2023-09-21 16:38] LABS: NT Pro Brain Natriuretic Pep. 278 pg/mL (0-125)
[2023-09-21 16:41] LABS: Troponin I < 0.01 ng/ml (0.00-0.034)
[2023-09-21] MEDS: METHYLPREDNISOLONE SOD SUCC 125MG VIAL 125 MG IV (16:44)
--- NOTE | 2023-09-21 17:03 | CT_ITS ---
PROCEDURE INFORMATION: Exam: CTA Chest With Contrast Exam date and time: 09/21/2023 5:27 PM Age: 58 years old Clinical indication: Shortness of breath; Additional info: SOA, persistent tachycardia TECHNIQUE: Imaging protocol: Computed tomographic angiography of the chest with contrast. Exam focused on the arteries. 3D rendering (Not supervised by radiologist): MIP and/or 3D reconstructed images were created by the technologist. Radiation optimization: All CT scans at this facility use at least one of these dose optimization techniques: automated exposure control; mA and/or kV adjustment per patient size (includes targeted exams where dose is matched to clinical indication); or iterative reconstruction. Contrast material: ISOVUE 370; Contrast volume: 70 ml; Contrast route: INTRAVENOUS (IV); COMPARISON: CR XR CHEST PORTABLE 09/21/2023 4:07 PM FINDINGS: Pulmonary arteries: Normal. No pulmonary emboli. Aorta: Mild atherosclerosis. No aortic aneurysm. No aortic dissection. Lungs: Upper lobe predominant emphysema. Biapical pleural-parenchymal thickening or scarring. Mild scattered tree-in-bud opacities. Two right middle lobe solid pulmonary nodules measuring up to 5.5 mm. Small calcified right lower lobe granulomas. Mild diffuse bronchial wall thickening with scattered areas of mucous plugging. Pleural spaces: Unremarkable. No pneumothorax. No pleural effusion. Heart: Unremarkable. No cardiomegaly. No pericardial effusion. Coronary arteries: Mild coronary artery calcifications. Lymph nodes: Mildly enlarged right lower paratracheal lymph node measuring 1.2 cm in short axis. Mild calcified right hilar lymph node. Spleen: Splenic calcifications. Bones/joints: Degenerative changes. No acute fracture. Soft tissues: Unremarkable. IMPRESSION: 1. No pulmonary artery embolism. 2. Mild scattered tree-in-bud opacities which can be seen with infectious or inflammatory bronchiolitis. Background COPD and biapical pleural-parenchymal thickening or scarring. 3. Two right middle lobe solid pulmonary nodules measuring up to 5.5 mm. For patients at low risk (minimal or absent history of smoking and of other known risk factors), no routine follow-up is indicated. For patients at high risk (history of smoking or of other known risk factors), consider optional CT Chest at 12 months. (Reference: Zachary) COMMENTS: The presence of pulmonary emphysema on CT is an independent risk factor for lung cancer. In the absence of a history or active diagnosis of lung cancer, it is recommended that this patient with emphysema be evaluated for enrollment in a low dose CT lung cancer screening program. REFERENCES: Zachary Jauregui, et al. Guidelines for Management of Incidental Pulmonary Nodules Detected on CT Images: From the Fleischner Society 2017. Radiology. 2017;284(1):228-243.
--- NOTE | 2023-09-21 17:04 | PC.NURSE ---
RESPIRATORY NOTIFIED OF BI-PAP ORDER
--- NOTE | 2023-09-21 17:08 | PC.NURSE ---
Respiratory at bs placing pt on bipap
[2023-09-21] MEDS: SODIUM CHLORIDE 0.9% 10ML SYR (RAD ONLY) 10 ML IV (17:27)
[2023-09-21] MEDS: 0.9 % SODIUM CHLORIDE 50 ML VIAL IV (17:27)
[2023-09-21] MEDS: IOPAMIDOL-370 (76%);100ML BOTTLE 70 ML IV (17:28)
[2023-09-21] MEDS: ACETAMINOPHEN 1,000MG/100ML VIAL 1000 MG IV (18:11)
[2023-09-21] MEDS: AMPICILLIN/SULBACTAM 3 GM in 0.9 % SODIUM CHLORIDE 100 ML IV ×2 (18:11→23:11)
--- NOTE | 2023-09-21 18:20 | PC.NURSE ---
Dr Terry speaking with hospitalist
[2023-09-21 18:22] LABS: Coronavirus 19, PCR Not Detected (NotDetected); Influenza B, PCR Not Detected (NotDetected)
--- NOTE | 2023-09-21 18:29 | PC.NURSE ---
call made to data warehouse developer for bed placement
--- NOTE | 2023-09-21 18:50 | PC.NURSE ---
report called to Katya Chavez RN
[2023-09-21 19:02] LABS: Influenza A, PCR Detected (NotDetected)
[2023-09-21 19:57] LABS: Troponin I 0.02 ng/ml (0.00-0.034)
--- NOTE | 2023-09-21 20:51 | P.HP_ITS ---
Attending attestation Patient was seen and evaluated at the bedside myself, agree with ISIDRO note. History of Present Illness *Admission Date: 09/21/23 *Reason for visit:: flu/pna *History of present illness: 58 year old female presented to [facility] ED for c/o SOB since Sunday. PMHX of htn, hld, tobacco abuse, COPD, and anxiety. On Sunday she went to her PCP and was tested for covid and flu which were negative. She was started on prednisone and cefdinir outpatient which has not helped her SOB. The ED workup revealed that the pt is positive for flu and her CTA of her chest revealed tree in bud opacities mildly scattered. Her lab work reveals a neutrophil shift and WNL c hemistry panel. The pt's HR is 120, temp 102.5, and RR 36. The ED physician consulted the hospitalist team for further medical management. I admitted the pt to the medical floor for sepsis related to flu and pneumonia. She is requiring 4L of oxygen. I will continue broad spectrum antibiotics and treatment for the flu. [facility] Disclaimer: The information contained in this section may have been updated after the patient was seen, as this information can be updated by other users. Medical History Anxiety Colon perforation COPD exacerbation Ovarian cyst Large complex cystic lesion most likely ovarian in origin. Pneumonia Postoperative anemia Postoperative ileus Tobacco use disorder Surgical History History of cholecystectomy Status post right colon removal Family History Other Cancer Hypertension Social History Smoking Status: Current every day smoker tobacco type: cigarettes packs per day: 1 second hand exposure: Yes alcohol intake: never substance use type: denies use current occupational status: employed Travel in the last 8 weeks: None Review of Systems Review of Systems Review of systems:: pertinent systems reviewed and negative unless documented below *Cardiovascular Cardiovascular: Reports dyspnea *Respiratory Respiratory: Reports dyspnea Meds Home Medications and Allergies Home Medications Medication Instructions Recorded Confirmed Type lorazepam 1 mg tablet 1 mg PO TID PRN 04/04/22 09/19/23 History sertraline 25 mg tablet 25 mg PO DAILY 04/04/22 09/19/23 History cholecalciferol (vitamin D3) 125 See Rx Instructions .Route 03/12/23 09/19/23 Rx mcg (5,000 unit) tablet (Vitamin .COMPLEX #30 tabs D3) albuterol sulfate 90 mcg/actuation 2 puff inhalation Q6HP PRN 04/09/23 09/19/23 Rx aerosol inhaler Shortness Of Breath #8.5 grams fluticasone fur. 100 mcg-umeclid 1 inh inhalation DAILY #60 ea 04/09/23 09/19/23 Rx 62.5 mcg-vilant 25 mcg inhalat.powder (Trelegy Ellipta) cetirizine 10 mg tablet See Rx Instructions .Route 04/24/23 09/19/23 Rx .COMPLEX #30 tabs quetiapine 50 mg tablet 50 mg PO QPMWITHMEAL SLEEP #90 tabs 04/24/23 09/19/23 Rx [id number]-[id number]-UG 5 ml PO Q4-6H PRN cold symptoms 09/19/23 09/19/23 Rx 2 mg-30 mg-10 mg/5 mL oral syrup #240 mL (Bromfed DM) cefdinir 300 mg capsule 300 mg PO BID #20 caps 09/19/23 09/19/23 Rx prednisone 20 mg tablet 20 mg PO .COMPLEX #15 tabs 09/19/23 09/19/23 Rx New Prescriptions to Start Prescriptions: Allergies Allergy/AdvReac Type Severity Reaction Status Date / Time No Known Allergies Allergy Verified 09/19/23 13:18 Exam Data for Last 24 hours Vital signs and Labs for Last 24 Hours: Temp Pulse Resp BP Pulse Ox O2 Del Method O2 Flow Rate 102.5 F H 94 H 36 H 126/55 L 94 L Nasal Cannula 4 09/21/23 19:48 09/21/23 19:48 09/21/23 19:48 09/21/23 19:48 09/21/23 18:30 09/21/23 19:48 09/21/23 19:48 Laboratory Results - last 24 hr 09/21/23 16:07: VBG pH 7.43 H, VBG pCO2 41.1, VBG pO2 78.4 H, VBG HCO3 26.4, VBG Total CO2 27.7 H, VBG O2 Saturation 96.3 H, VBG Base Excess 2.0, VBG Lactic Acid 1.5 09/21/23 16:08: WBC 9.8, RBC 4.75, Hgb 14.9, Hct 45.5, MCV 95.8, MCH 31.4 H, MCHC 32.8, RDW 14.1, Plt Count 177, MPV 9.3, Neut % (Auto) 84.8 H, Lymph % (Auto) 8.7 L, [place] % (Auto) 5.0, Eos % (Auto) 0.8, Baso % (Auto) 0.8, Neut # (Auto) 8.3 H, Lymph # (Auto) 0.8, [place] # (Auto) 0.5, Eos # (Auto) 0.1, Baso # (Auto) 0.1, Sodium 139, Potassium 3.5, Chloride 105, Carbon Dioxide 27, Anion Gap 10.5, BUN 8, Creatinine 0.70, Estimated Creat Clear 83, Estimated GFR 86, Est GFR ( Amer) 104, Glucose 117 H, Calcium 9.2, Total Bilirubin 0.6, AST 43 H, ALT 27, Alkaline Phosphatase 144 H, Troponin I < 0.01, NT-Pro-B Natriuret Pep 278 H, Total Protein 7.3, Albumin 4.3, Globulin 3.0, Albumin/Globulin Ratio 1.4 09/21/23 18:15: SARS-CoV-2 (PCR) Not detected, Influenza A Untype (PCR) Detected A, Influenza Type B (PCR) Not detected 09/21/23 19:20: Troponin I 0.02 I & O for Last 24 hours: Intake & Output 09/18/23 09/19/23 09/20/23 09/21/23 23:59 23:59 23:59 23:59 Weight 58.967 kg Constitutional Constitutional: thin *Routine HEENT Exam Head: Present normocephalic Eye: Present EOMI ENT: Present mucous membranes dry *Routine Neck Exam Neck: Present full ROM *Routine Respiratory Exam Respiratory: Present wheezes, crackles and symmetric chest movement *Routine Cardiovascular Exam Cardiovascular: Present tachycardia *Routine Abdominal Exam Abdominal: Present soft and normoactive bowel sounds; Absent tenderness *Routine Rectal Exam Rectal:: deferred *Routine Genitalia Exam Genitalia:: deferred *Routine Extremities Exam Extremities: Present full ROM *Routine Skin Exam Skin: Present intact *Routine Neurological Exam Neurological: Present alert and oriented X3 Assessment and Plan *Assessment and plan (1) Sepsis: Status: Acute Category: Medical Code(s): A41.9 - Sepsis, unspecified organism (2) Acute hypoxemic respiratory failure: Status: Acute Category: Medical Code(s): J96.01 - Acute respiratory failure with hypoxia (3) Influenza A: Status: Acute Category: Medical Code(s): J10.1 - Influenza due to other identified influenza virus with other respiratory manifestations (4) Pneumonia: Status: Acute Category: Medical Code(s): J18.9 - Pneumonia, unspecified organism (5) COPD (chronic obstructive pulmonary disease): Status: Acute Category: Medical Code(s): J44.9 - Chronic obstructive pulmonary disease, unspecified (6) Anxiety with depression: Status: Acute Category: Medical Code(s): F41.8 - Other specified anxiety disorders (7) Tobacco use disorder: Status: Acute Category: Medical Code(s): F17.200 - Nicotine dependence, unspecified, uncomplicated Plan 58 year old female presented to [facility] ED for c/o SOB since Sunday. PMHX of htn, tobacco abuse, COPD, and anxiety. On Sunday she went to her PCP and was tested for covid and flu which were negative. She was started on prednisone and cefdinir outpatient which has not helped her SOB. The ED workup revealed that the pt is positive for flu and her CTA of her chest revealed tree in bud opacities mildly scattered. Her lab work reveals a neutrophil shift and WNL chemistry panel. The pt's HR is 120, temp 102.5, and RR 36. The ED physician consulted the hospitalist team for further medical management. I admitted the pt to the medical floor for sepsis related to flu and pneumonia. She is requiring 4L of oxygen. I will continue broad spectrum antibiotics and treatment for the flu. SEPSIS ACUTE HYPOXEMIC RESP FAILURE INFLUENZA A PNA COPD -HR is 120, temp 102.5, and RR 36 -CTA of her chest reviewed and reveals tree in bud opacities mildly scattered -EKG reviewed and reveals sinus tachycardia without ST elevation. negative troponins -SOB started Sunday, initial test was negative, repeat test today positive for influenza A -blood cultures, sputum culture, and lactate pending -UA pending -continue Unasyn and vancomycin for broad spectrum coverage -methylprednisone 60 mg IV q 8hr -oseltamivir 75mg BID -Duonebs TID prn and suzanne -maintain o2 above 92% -Tylenol and toradol PRN for fever or pain -encourage oral hydration ANXIETY DEPRESSION -awaiting home med req TOBACCO ABUSE -nicotine patch PRN FULL CODE REGULAR DIET DVT: HEPARIN SQ
[2023-09-21] MEDS: LEVALBUTEROL 1.25MG/3ML NEB 1.25 MG IH (20:55)
[2023-09-21] MEDS: VANCOMYCIN/WATER FOR INJ (PEG) 1.25 GM/250 ML PIGGYBACK IV (21:00)
--- NOTE | 2023-09-21 21:07 | PC.NURSE ---
Patient arrived to floor from ED at 19:46.
[2023-09-21 21:34] LABS: Microscopic, Urine URINE MICROSCOPIC (MICROSCOPIC)
[2023-09-21 21:37] LABS: Appearance,Urine CLEAR (Clear); Bilirubin,Urine Negative (Negative); Blood, Urine 1+ (Negative); Color,Urine YELLOW (Yellow); Glucose,Urine (UA) Negative (Negative); Ketones,Urine Negative (Negative); Leukocyte Esterase,Urine Negative (Negative); Nitrate,Urine Negative (Negative); Protein,Urine Negative (Negative); Specific Gravity, Urine 1.015 (1.005-1.030); Urobilinogen,Urine 0.2 EU/dl (0.2)
[2023-09-21] MEDS: OSELTAMIVIR 75MG CAPSULE 75 MG PO (21:55)
[2023-09-21] MEDS: BENZONATATE 100MG CAPSULE 100 MG PO (21:55)
[2023-09-21 21:56] LABS: Lactic Acid 1.2 mmol/L (0.7-2.1)
[2023-09-21 21:57] LABS: RBC,Urine Occasional #/hpf (0-3); Yeast,Urine Occasional /lpf
[2023-09-21] MEDS: METHYLPREDNISOLONE SOD SUCC 125MG VIAL 60 MG IV (22:06)
[2023-09-21 22:13] LABS: Troponin I 0.02 ng/ml (0.00-0.034)
[2023-09-22] VITALS (10 sets, daily range): BP systolic 108–137; BP diastolic 44–75; PULSE 81–120; RESP 20–34; TEMP 36.6–37.2; O2SAT 70–95; BMI 20.8
--- NOTE | 2023-09-22 02:00 | PC.NURSE ---
This RN took over care at 0100
[2023-09-22] MEDS: METHYLPREDNISOLONE SOD SUCC 125MG VIAL 60 MG IV ×3 (04:31→20:51)
[2023-09-22] MEDS: AMPICILLIN/SULBACTAM 3 GM in 0.9 % SODIUM CHLORIDE 100 ML IV ×3 (04:31→20:51)
[2023-09-22] MEDS: ACETAMINOPHEN 325MG TAB 325 MG PO ×2 (06:06→14:35)
--- NOTE | 2023-09-22 06:31 | PC.NURSE ---
Pt is alert and oriented. Pt has had 2 coughing spells since taking over care, productive and wet. Pt is on 3L NC, O2 sat >90%. Lung sounds wheezing bilaterally. Pt has rested intermittently. Bed alarm is on. NSR on tele. Pt has complained of pain, treated per sep.
[2023-09-22] MEDS: LEVALBUTEROL 1.25MG/3ML NEB 1.25 MG IH ×3 (06:40→22:18)
[2023-09-22 07:19] LABS: Basophils % 0.2 % (0.1-2.0); Eosinophils % 0.2 % (0.1-12.0); Hematocrit 43.6 % (37.0-47.0); Hemoglobin 13.9 g/dL (12.2-16.2); Lymphocytes # 0.6 K/mm3 (0.7-4.5); Lymphocytes % 6.3 % (10-50); Mean Corpuscular HGB Conc 31.8 g/dL (31.8-35.4); Mean Corpuscular Volume 97.4 fl (81-99); Mean Platelet Volume 8.7 fl (7.4-10.4); Monocytes # 0.2 K/mm3 (0.1-1.0); Neutrophils # 7.9 K/mm3 (1.8-7.8); Neutrophils % 91.3 % (37.0-80.0); Platelet Count 168 K/mm3 (142-424); Red Blood Count 4.48 M/mm3 (4.20-5.40); White Blood Count 8.7 K/mm3 (4.8-10.8)
[2023-09-22 07:32] LABS: Anion Gap 6.9 mEq/L (5-15); Blood Urea Nitrogen 10 mg/dl (7-17); Calcium 8.7 mg/dl (8.4-10.2); Carbon Dioxide 30 mmol/L (22.0-30.0); Chloride 107 mmol/L (98-107); Creatinine Clearance Estimated 96 mL/min (50-200); Estimated Glomerular Filt Rate 103 ml/min (>60); GFR (African American) 125 ML/MIN (>60); Glucose 149 mg/dl (74-100); Potassium 3.9 mmoL/L (3.5-5.1); Sodium 140 mmol/L (136-145)
[2023-09-22 07:34] LABS: MANUAL DIFFERENTIAL MANUAL DIFFERENTIAL (MANUAL DIFF)
--- NOTE | 2023-09-22 08:41 | P.CONPHA_ITS ---
Pharmacy Consult Date: 09/22/23 Time: 08:41 Referring provider: DR. GONZALEZ Reason for Consult:: VANCOMYCIN DOSING Allergies Allergy/AdvReac Type Severity Reaction Status Date / Time No Known Allergies Allergy Verified 09/19/23 13:18 Home Medications Medication Instructions Recorded Confirmed Type lorazepam 1 mg tablet 1 mg PO BID PRN Anxiety 04/04/22 09/21/23 History albuterol sulfate 90 mcg/actuation 2 puff inhalation Q6HP PRN 04/09/23 09/21/23 Rx aerosol inhaler Shortness Of Breath #8.5 grams fluticasone fur. 100 mcg-umeclid 1 inh inhalation DAILY #60 ea 04/09/23 09/21/23 Rx 62.5 mcg-vilant 25 mcg inhalat.powder (Trelegy Ellipta) quetiapine 50 mg tablet 50 mg PO QPMWITHMEAL SLEEP #90 tabs 04/24/23 09/21/23 Rx cetirizine 10 mg tablet 10 mg PO DAILY 09/21/23 09/21/23 History cholecalciferol (vitamin D3) 125 5,000 unit PO DAILY 09/21/23 09/21/23 History mcg (5,000 unit) tablet (Vitamin D3) New Prescriptions to Start Prescriptions: Height: 1.68 m Weight: 58.922 kg Laboratory Results:: Laboratory Results - last 24 hr 09/21/23 16:07: VBG pH 7.43 H, VBG pCO2 41.1, VBG pO2 78.4 H, VBG HCO3 26.4, VBG Total CO2 27.7 H, VBG O2 Saturation 96.3 H, VBG Base Excess 2.0, VBG Lactic Acid 1.5 09/21/23 16:08: WBC 9.8, RBC 4.75, Hgb 14.9, Hct 45.5, MCV 95.8, MCH 31.4 H, MCHC 32.8, RDW 14.1, Plt Count 177, MPV 9.3, Neut % (Auto) 84.8 H, Lymph % (Auto) 8.7 L, [place] % (Auto) 5.0, Eos % (Auto) 0.8, Baso % (Auto) 0.8, Neut # (Auto) 8.3 H, Lymph # (Auto) 0.8, [place] # (Auto) 0.5, Eos # (Auto) 0.1, Baso # (Auto) 0.1, Sodium 139, Potassium 3.5, Chloride 105, Carbon Dioxide 27, Anion Gap 10.5, BUN 8, Creatinine 0.70, Estimated Creat Clear 83, Estimated GFR 86, Est GFR ( Amer) 104, Glucose 117 H, Calcium 9.2, Total Bilirubin 0.6, AST 43 H, ALT 27, Alkaline Phosphatase 144 H, Troponin I < 0.01, NT-Pro-B Natriuret Pep 278 H, Total Protein 7.3, Albumin 4.3, Globulin 3.0, Albumin/Globulin Ratio 1.4 09/21/23 18:15: Urine Color Yellow, Urine Appearance Clear, Urine pH 6.0, Ur Specific [place] 1.015, Urine Protein Negative, Urine Glucose (UA) Negative, Urine Ketones Negative, Urine Blood 1+, Urine Nitrate Negative, Urine Bilirubin Negative, Urine Urobilinogen 0.2, Ur Leukocyte Esterase Negative, Urine RBC Occasional, Urine WBC None, Ur Squamous Epith Cells 3-5, Urine Bacteria None, Urine Yeast Occasional, SARS-CoV-2 (PCR) Not detected, Influenza A Untype (PCR) Detected A, Influenza Type B (PCR) Not detected 09/21/23 19:20: Troponin I 0.02 09/21/23 21:35: Lactate 1.2, Troponin I 0.02 09/22/23 06:30: WBC 8.7, RBC 4.48, Hgb 13.9, Hct 43.6, MCV 97.4, MCH 31.0, MCHC 31.8, RDW 14.0, Plt Count 168, MPV 8.7, Neut % (Auto) 91.3 H, Lymph % (Auto) 6.3 L, [place] % (Auto) 2.0, Eos % (Auto) 0.2, Baso % (Auto) 0.2, Neut # (Auto) 7.9 H, Lymph # (Auto) 0.6 L, [place] # (Auto) 0.2, Eos # (Auto) 0.0, Baso # (Auto) 0.0, Sodium 140, Potassium 3.9, Chloride 107, Carbon Dioxide 30, Anion Gap 6.9, BUN 1 0, Creatinine 0.60, Estimated Creat Clear 96, Estimated GFR 103, Est GFR ( Amer) 125 D, Glucose 149 H D, Calcium 8.7 Medical History: Medical History (Updated 09/21/23 @ 21:05 by MICHAEL Wheatley) Anxiety Colon perforation COPD exacerbation Ovarian cyst Pneumonia Postoperative anemia Postoperative ileus Tobacco use disorder Assessment and Plan Assessment and plan all Dx Assessment and Plan for all problems:: Pharmacokinetic dosing service Objective: Patient: Floor: Age: 58 yo Serum creatinine: 0.6 mg/dL Height: 66.1 Inches Weight (kg): 58.9 Assessment: IBW (kg): 59.53 Dosing wt(kg): 58.9 Estimated Creatinine clearance (ml/min): 96.2 CRCL method: Cockcroft and Gault using ibw(default). Drug selected: Vancomycin Loading dose (mg): 0 Vd (liters): 47.1 (factor used: 0.8 L/kg) Clarence (hr-1): 0.084 Half life (hrs): 8.25 Recommended dose: 1000 mg Interval: 12 hrs Infusion time (hrs): 2.0 Predicted peak (mcg/mL): 30.8 Predicted trough (mcg/mL): 13.30 Total body weight is being used for vancomycin dosing. Recommendations: Give Vancomycin 1000 mg q 12 hrs with an expected Cpeak of 30.8 mcg/ml and an expected Ctrough of 13.30 mcg/ml ----Vanco only - ignore for aminoglycosides----- CLvanco= 3.96 L/hr AUC 0-24 /THONY Data: THONY 0.5 mcg/mL: AUC/THONY: 1010.1 THONY 1.0 mcg/mL: AUC/THONY: 505.1 --------- THONY 1.5 mcg/mL: AUC/THONY: 336.7 THONY 2.0 mcg/mL: AUC/THONY: 252.5
[2023-09-22] MEDS: OSELTAMIVIR 75MG CAPSULE 75 MG PO ×2 (09:13→20:50)
[2023-09-22] MEDS: VANCOMYCIN HCL 1,000 MG in 0.9 % SODIUM CHLORIDE 250 ML 125 MG IV ×2 (09:13→21:52)
[2023-09-22] MEDS: HEPARIN SODIUM 5,000 UNIT/ML VIAL 5000 UNIT SQ ×2 (09:13→20:50)
--- NOTE | 2023-09-22 10:45 | PC.NURSE ---
pt walked to the br with o2 at 3l via nc. pt became very soa even with nc on, o2 sats dropped to 77%. bsc placed in pts room, recommend using that at this time. hr 103. at rest, pt verbalize soa at times, lung sound expiratory and insp wheezing and rhonchi
[2023-09-22 12:48] LABS: Lymphocytes % 1 % (10-50); Monocytes % 5 % (2-9); Neutrophils % 87 % (42-76); Total Cells Counted 100
[2023-09-22 12:51] LABS: Platelet Estimate Normal; RBC Morphology Normal
--- NOTE | 2023-09-22 13:29 | HMH.PHAINT1 ---
Pharmacy Intervention Comments: MED LIST ADJUST PER FILL HISTORY
[2023-09-22] MEDS: KETOROLAC 30MG/ML VIAL 15 MG IV ×2 (16:24→23:38)
--- NOTE | 2023-09-22 16:50 | P.PN_ITS ---
Subjective *Date: 09/22/23 *Time: 16:50 Interval history: seen at bedside, denied CP, no nausea vomiting, patient was found tachcardic on tele Exam Data for Last 24 hours Vital signs and Labs for Last 24 Hours: Temp Pulse Resp BP Pulse Ox O2 Del Method O2 Flow Rate 98.6 F 91 H 22 137/75 94 L Nasal Cannula 3 09/22/23 15:30 09/22/23 15:30 09/22/23 15:30 09/22/23 15:30 09/22/23 15:30 09/22/23 15:30 09/22/23 15:30 Laboratory Results - last 24 hr 09/21/23 18:15: Urine Color Yellow, Urine Appearance Clear, Urine pH 6.0, Ur Specific [place] 1.015, Urine Protein Negative, Urine Glucose (UA) Negative, Urine Ketones Negative, Urine Blood 1+, Urine Nitrate Negative, Urine Bilirubin Negative, Urine Urobilinogen 0.2, Ur Leukocyte Esterase Negative, Urine RBC Occasional, Urine WBC None, Ur Squamous Epith Cells 3-5, Urine Bacteria None, Urine Yeast Occasional, SARS-CoV-2 (PCR) Not detected, Influenza A Untype (PCR) Detected A, Influenza Type B (PCR) Not detected 09/21/23 19:20: Troponin I 0.02 09/21/23 21:35: Lactate 1.2, Troponin I 0.02 09/22/23 06:30: WBC 8.7, RBC 4.48, Hgb 13.9, Hct 43.6, MCV 97.4, MCH 31.0, MCHC 31.8, RDW 14.0, Plt Count 168, MPV 8.7, Neut % (Auto) 91.3 H, Lymph % (Auto) 6.3 L, [place] % (Auto) 2.0, Eos % (Auto) 0.2, Baso % (Auto) 0.2, Neut # (Auto) 7.9 H, Lymph # (Auto) 0.6 L, [place] # (Auto) 0.2, Eos # (Auto) 0.0, Baso # (Auto) 0.0, Total Counted 100, Neutrophils % (Manual) 87 H, Band Neutrophils % 7.0, Lymphocytes % (Manual) 1 L, Monocytes % (Manual) 5, Platelet Estimate Normal, RBC Morphology Normal, Sodium 140, Potassium 3.9, Chloride 107, Carbon Dioxide 30, Anion Gap 6.9, BUN 10, Creatinine 0.60, Estimated Creat Clear 96, Estimated GFR 103, Est GFR ( Amer) 125 D, Glucose 149 H D, Calcium 8.7 I & O for Last 24 hours: Intake & Output 09/19/23 09/20/23 09/21/23 09/22/23 23:59 23:59 23:59 23:59 Intake Total 480 / 480 Output Total 0 / 0 0 / 0 Balance 0 / 0 480 / 480 Weight 58.922 kg 58.922 kg Constitutional Constitutional: no acute distress *Routine HEENT Exam Head: Present normocephalic Eye: Present EOMI and PERRL ENT: Present mucous membranes moist *Routine Neck Exam Neck: Present supple; Absent lymphadenopathy *Routine Respiratory Exam Respiratory: Present CTA bilaterally *Routine Cardiovascular Exam Cardiovascular: Present RRR *Routine Abdominal Exam Abdominal: Present soft and normoactive bowel sounds; Absent tenderness *Routine Extremities Exam Extremities: Absent cyanosis, clubbing or edema *Routine Skin Exam Skin: Present warm; Absent rash *Routine Neurological Exam Neurological: Present alert and oriented X3 Assessment and Plan *Assessment and plan (1) Sepsis: Status: Acute Category: Medical Code(s): A41.9 - Sepsis, unspecified organism (2) Acute hypoxemic respiratory failure: Status: Acute Category: Medical Code(s): J96.01 - Acute respiratory failure with hypoxia (3) Influenza A: Status: Acute Category: Medical Code(s): J10.1 - Influenza due to other identified influenza virus with other respiratory manifestations (4) Pneumonia: Status: Acute Category: Medical Code(s): J18.9 - Pneumonia, unspecified organism (5) COPD (chronic obstructive pulmonary disease): Status: Acute Category: Medical Code(s): J44.9 - Chronic obstructive pulmonary disease, unspecified (6) Anxiety with depression: Status: Acute Category: Medical Code(s): F41.8 - Other specified anxiety disorders (7) Tobacco use disorder: Status: Acute Category: Medical Code(s): F17.200 - Nicotine dependence, unspecified, uncomplicated Plan 58 year old female presented to [facility] ED for c/o SOB since Sunday. PMHX of htn, tobacco abuse, COPD, and anxiety. On Sunday she went to her PCP and was tested for covid and flu which were negative. She was started on prednisone and cefdinir outpatient which has not helped her SOB. The ED workup revealed that the pt is positive for flu and her CTA of her chest revealed tree in bud opacities mildly scattered. Her lab work reveals a neutrophil shift and WNL chemistry panel. The pt's HR is 120, temp 102.5, and RR 36. The ED physician consulted the hospitalist team for further medical management. I admitted the pt to the medical floor for sepsis related to flu and pneumonia. She is requiring 4L of oxygen. I will continue broad spectrum antibiotics and treatment for the flu. SEPSIS ACUTE HYPOXEMIC RESP FAILURE INFLUENZA A COPDE PNA -CTA of her chest reviewed and reveals tree in bud opacities mildly scattered -SOB started Sunday, initial test was negative, repeat test today positive for influenza A -blood cultures, sputum culture - pending -UA - not suggestive of UTI -continue Unasyn and vancomycin for broad spectrum coverage -methylprednisone 60 mg IV q 8hr -oseltamivir 75mg BID -Duonebs TID scheduled -maintain o2 above 92% ANXIETY DEPRESSION -awaiting home med req TOBACCO ABUSE -nicotine patch PRN FULL CODE REGULAR DIET DVT: HEPARIN SQ await blood culture results, continue IV Abx and breathing treatments
--- NOTE | 2023-09-22 17:51 | PC.NURSE ---
pt has been very tearful today and not very talkative, shakes head or gives short answers. this nurse spoke wiht pt about feeling anxious, pt states yes she is anxious and worried. pt requesting home dose seroquel. notified md of pts request.
[2023-09-22] MEDS: ALPRAZolam 0.25MG TABLET 0.25 MG PO (18:13)
[2023-09-22] MEDS: BENZONATATE 100MG CAPSULE 100 MG PO (18:13)
[2023-09-22] MEDS: QUETIAPINE 50 MG 50 EACH PO (23:39)
[2023-09-23] VITALS (10 sets, daily range): BP systolic 105–134; BP diastolic 55–73; PULSE 52–120; RESP 17–28; TEMP 36.4–36.9; O2SAT 92–98; BMI 20.9
[2023-09-23] MEDS: BENZONATATE 100MG CAPSULE 100 MG PO ×3 (00:02→18:02)
[2023-09-23] MEDS: METHYLPREDNISOLONE SOD SUCC 125MG VIAL 60 MG IV ×3 (06:12→20:53)
[2023-09-23] MEDS: KETOROLAC 30MG/ML VIAL 15 MG IV ×2 (06:12→16:37)
[2023-09-23] MEDS: AMPICILLIN/SULBACTAM 3 GM in 0.9 % SODIUM CHLORIDE 100 ML IV ×3 (06:13→20:53)
[2023-09-23] MEDS: LORazepam 1MG TABLET 1 MG PO ×2 (08:25→20:53)
[2023-09-23] MEDS: HEPARIN SODIUM 5,000 UNIT/ML VIAL 5000 UNIT SQ ×2 (08:26→20:53)
[2023-09-23] MEDS: VANCOMYCIN HCL 1,000 MG in 0.9 % SODIUM CHLORIDE 250 ML 125 MG IV ×2 (08:26→21:31)
[2023-09-23] MEDS: OSELTAMIVIR 75MG CAPSULE 75 MG PO ×2 (08:26→20:53)
[2023-09-23] MEDS: LORATADINE 10MG TABLET 10 MG PO (09:11)
[2023-09-23] MEDS: FLUTICASONE/UMECLIDIN/VILANTER 100/62.5/25MCG INHALER 1 PUFF IH (09:22)
[2023-09-23] MEDS: LEVALBUTEROL 1.25MG/3ML NEB 1.25 MG IH (09:22)
[2023-09-23 09:56] LABS: Basophils % 0.2 % (0.1-2.0); Eosinophils # 0.2 K/mm3 (0.0-0.4); Hematocrit 39.5 % (37.0-47.0); Hemoglobin 12.4 g/dL (12.2-16.2); Lymphocytes # 0.8 K/mm3 (0.7-4.5); Lymphocytes % 9.3 % (10-50); Mean Corpuscular HGB Conc 31.5 g/dL (31.8-35.4); Mean Corpuscular Hemoglobin 30.7 pg (27.0-31.2); Mean Corpuscular Volume 97.7 fl (81-99); Mean Platelet Volume 9.1 fl (7.4-10.4); Monocytes # 0.2 K/mm3 (0.1-1.0); Monocytes % 2.7 % (1.7-9.3); Neutrophils % 85.8 % (37.0-80.0); Platelet Count 165 K/mm3 (142-424); Red Blood Count 4.04 M/mm3 (4.20-5.40); Red Cell Distribution Width 14.2 % (11.5-17.5); White Blood Count 8.2 K/mm3 (4.8-10.8)
[2023-09-23 09:59] LABS: MANUAL DIFFERENTIAL MANUAL DIFFERENTIAL (MANUAL DIFF)
[2023-09-23 10:06] LABS: Alanine Aminotransferase 28 U/L (12-78); Albumin Level 3.3 g/dl (3.5-5.0); Albumin/Globulin Ratio 1.3 (1.1-1.8); Alkaline Phosphatase 93 U/L (38-126); Anion Gap 8.9 mEq/L (5-15); Aspartate Amino Transferase 39 U/L (14-36); Bilirubin,Total 0.3 mg/dl (0.2-1.3); Blood Urea Nitrogen 18 mg/dl (7-17); Carbon Dioxide 32 mmol/L (22.0-30.0); Chloride 104 mmol/L (98-107); Creatinine Clearance Estimated 116 mL/min (50-200); Estimated Glomerular Filt Rate 127 ml/min (>60); GFR (African American) 154 ML/MIN (>60); Globulin 2.6 g/dL (1.3-3.2); Glucose 182 mg/dl (74-100); Potassium 3.9 mmoL/L (3.5-5.1); Sodium 141 mmol/L (136-145); Total Protein,Serum 5.9 g/dl (6.3-8.2)
[2023-09-23 14:46] LABS: Lymphocytes % 9 % (10-50); Monocytes % 2 % (2-9); Neutrophils % 82 % (42-76); Total Cells Counted 100
[2023-09-23 14:48] LABS: Platelet Estimate Normal; RBC Morphology Normal
--- NOTE | 2023-09-23 16:14 | EXP.PN ---
Subjective *Date: 09/23/23 *Time: 16:14 Interval history: seen at bedside, still requiring 2L NC, not on home 2, says SOB is better. denied CP, no nausea vomiting, no fevers overnight, no acute events per RN Exam Data for Last 24 hours Vital signs and Labs for Last 24 Hours: Temp Pulse Resp BP Pulse Ox O2 Del Method O2 Flow Rate 98.4 F 84 22 134/73 92 L Nasal Cannula 3 09/23/23 15:21 09/23/23 15:21 09/23/23 15:21 09/23/23 15:21 09/23/23 15:21 09/23/23 15:21 09/23/23 15:21 FiO2 32 09/22/23 18:54 Laboratory Results - last 24 hr 09/23/23 09:40: WBC 8.2, RBC 4.04 L, Hgb 12.4, Hct 39.5, MCV 97.7, MCH 30.7, MCHC 31.5 L, RDW 14.2, Plt Count 165, MPV 9.1, Neut % (Auto) 85.8 H, Lymph % (Auto) 9.3 L, [place] % (Auto) 2.7, Eos % (Auto) 2.0, Baso % (Auto) 0.2, Neut # (Auto) 7.0, Lymph # (Auto) 0.8, [place] # (Auto) 0.2, Eos # (Auto) 0.2, Baso # (Auto) 0.0, Total Counted 100, Neutrophils % (Manual) 82 H, Band Neutrophils % 7.0, Lymphocytes % (Manual) 9 L, Monocytes % (Manual) 2, Platelet Estimate Normal, RBC Morphology Normal, Sodium 141, Potassium 3.9, Chloride 104, Carbon Dioxide 32 H, Anion Gap 8.9, BUN 18 H D, Creatinine 0.50 L, Estimated Creat Clear 116, Estimated GFR 127, Est GFR ( Amer) 154 D, Glucose 182 H, Calcium 9.0, Total Bilirubin 0.3, AST 39 H, ALT 28, Alkaline Phosphatase 93, Total Protein 5.9 L, Albumin 3.3 L, Globulin 2.6, Albumin/Globulin Ratio 1.3 I & O for Last 24 hours: Intake & Output 09/20/23 09/21/23 09/22/23 09/23/23 23:59 23:59 23:59 23:59 Intake Total 720 / 840 480 / 480 Output Total 0 / 0 0 / 0 0 / 0 Balance 0 / 0 720 / 840 480 / 480 Weight 58.922 kg 58.922 kg 58.967 kg Constitutional Constitutional: no acute distress *Routine HEENT Exam Head: Present normocephalic Eye: Present EOMI and PERRL ENT: Present mucous membranes moist *Routine Neck Exam Neck: Present supple; Absent lymphadenopathy *Routine Respiratory Exam Respiratory: Present CTA bilaterally *Routine Cardiovascular Exam Cardiovascular: Present RRR *Routine Abdominal Exam Abdominal: Present soft and normoactive bowel sounds; Absent tenderness *Routine Extremities Exam Extremities: Absent cyanosis, clubbing or edema *Routine Skin Exam Skin: Present warm; Absent rash *Routine Neurological Exam Neurological: Present alert and oriented X3 Assessment and Plan *Assessment and plan (1) Sepsis: Status: Acute Category: Medical Code(s): A41.9 - Sepsis, unspecified organism (2) Acute hypoxemic respiratory failure: Status: Acute Category: Medical Code(s): J96.01 - Acute respiratory failure with hypoxia (3) Influenza A: Status: Acute Category: Medical Code(s): J10.1 - Influenza due to other identified influenza virus with other respiratory manifestations (4) Pneumonia: Status: Acute Category: Medical Code(s): J18.9 - Pneumonia, unspecified organism (5) COPD (chronic obstructive pulmonary disease): Status: Acute Category: Medical Code(s): J44.9 - Chronic obstructive pulmonary disease, unspecified (6) Anxiety with depression: Status: Acute Category: Medical Code(s): F41.8 - Other specified anxiety disorders (7) Tobacco use disorder: Status: Acute Category: Medical Code(s): F17.200 - Nicotine dependence, unspecified, uncomplicated Plan 58 year old female presented to [facility] ED for c/o SOB since Sunday. PMHX of htn, tobacco abuse, COPD, and anxiety. On Sunday she went to her PCP and was tested for covid and flu which were negative. She was started on prednisone and cefdinir outpatient which has not helped her SOB. The ED workup revealed that the pt is positive for flu and her CTA of her chest revealed tree in bud opacities mildly scattered. Her lab work reveals a neutrophil shift and WNL chemistry panel. The pt's HR is 120, temp 102.5, and RR 36. The ED physician consulted the hospitalist team for further medical management. I admitted the pt to the medical floor for sepsis related to flu and pneumonia. She is requiring 4L of oxygen. I will continue broad spectrum antibiotics and treatment for the flu. SEPSIS ACUTE HYPOXEMIC RESP FAILURE INFLUENZA A COPDE PNA -CTA of her chest reviewed and reveals tree in bud opacities mildly scattered -SOB started Sunday, initial test was negative, repeat test today positive for influenza A -blood cultures, sputum culture - pending -UA - not suggestive of UTI -continue Unasyn and vancomycin for broad spectrum coverage -methylprednisone 60 mg IV q 8hr -oseltamivir 75mg BID -Duonebs TID scheduled -maintain o2 above 92% ANXIETY DEPRESSION -awaiting home med req TOBACCO ABUSE -nicotine patch PRN FULL CODE REGULAR DIET DVT: HEPARIN SQ wean O2, continue current treatment, likely DC tomorrow, await blood culture results, continue IV Abx and breathing treatments
[2023-09-23] MEDS: QUETIAPINE 25MG TABLET 50 MG PO (16:37)
--- NOTE | 2023-09-23 18:51 | PC.NURSE ---
pt hasnt been tearful or as anxious today compared to yesterday. pt o2 drops in the 80s with little exertion or when coughing. o2 at 3l nc with sats around 93% at rest.
[2023-09-23] MEDS: guaiFENesin 600 MG TAB.ER.12H PO (20:16)
[2023-09-23 21:42] LABS: Vancomycin,Trough 9.6 ug/mL (5.0-10.0)
[2023-09-24] VITALS: BP 127/71; PULSE 70; PULSE 75; RESP 20; TEMP 36.7; O2SAT 90
[2023-09-24 01:32] LABS: Vancomycin,Peak 13.9 ug/ml (11-39)
[2023-09-24 04:00] VITALS: BP 136/67; PULSE 72; PULSE 78; RESP 17; TEMP 36.6; O2SAT 93; BMI 22.1
--- NOTE | 2023-09-24 05:26 | PC.NURSE ---
Patient has had a decent shift. At the beginning to the shift the patient was continually coughing and unable to catch her breath. Provider was notified and a one time dose of a medication was given to help. The patient has not complained of it since and has been able to rest better through the night. no other issues have arose during the shift
[2023-09-24] MEDS: METHYLPREDNISOLONE SOD SUCC 125MG VIAL 60 MG IV (05:44)
[2023-09-24] MEDS: AMPICILLIN/SULBACTAM 3 GM in 0.9 % SODIUM CHLORIDE 100 ML IV (05:44)
[2023-09-24] MEDS: FLUTICASONE/UMECLIDIN/VILANTER 100/62.5/25MCG INHALER 1 PUFF IH (06:18)
--- NOTE | 2023-09-24 07:40 | P.PN_ITS ---
Subjective *Date: 09/24/23 *Time: 07:40 Medical Exam Vital signs and Labs for Last 24 Hours: Vital Signs Temp Pulse Pulse Resp BP Pulse Ox O2 Del Method 09/24/23 04:00 97.9 F 72 17 136/67 93 L Nasal Cannula 09/24/23 05:00 Nasal Cannula 09/24/23 04:00 78 09/24/23 06:55 Nasal Cannula 09/24/23 03:00 Room Air 09/24/23 00:00 75 09/23/23 20:00 118 H 09/24/23 01:00 Nasal Cannula 09/24/23 00:00 98.1 F 70 20 127/71 90 L Nasal Cannula 09/23/23 23:00 Nasal Cannula 09/23/23 21:00 Nasal Cannula 09/23/23 20:00 Nasal Cannula 09/23/23 20:00 98.0 F 81 17 133/71 96 Nasal Cannula 09/23/23 18:41 Nasal Cannula 09/23/23 18:21 Nasal Cannula 09/23/23 16:00 Room Air 09/23/23 17:00 Room Air 09/23/23 16:00 120 H 09/23/23 15:21 98.4 F 84 22 134/73 92 L Nasal Cannula 09/23/23 15:00 Nasal Cannula 09/23/23 12:00 80 09/23/23 13:00 Nasal Cannula 09/23/23 11:00 Nasal Cannula 09/23/23 11:13 98.3 F 84 22 120/55 L 93 L Nasal Cannula 09/23/23 08:00 Nasal Cannula 09/23/23 09:00 Nasal Cannula 09/23/23 09:23 75 09/23/23 09:23 77 09/23/23 09:23 92 L Nasal Cannula 09/23/23 08:00 95 H O2 Flow Rate 09/24/23 04:00 09/24/23 05:00 3 09/24/23 04:00 09/24/23 06:55 3 09/24/23 03:00 09/24/23 00:00 09/23/23 20:00 09/24/23 01:00 3 09/24/23 00:00 3 09/23/23 23:00 3 09/23/23 21:00 3 09/23/23 20:00 3 09/23/23 20:00 3 09/23/23 18:41 3 09/23/23 18:21 3 09/23/23 16:00 09/23/23 17:00 09/23/23 16:00 09/23/23 15:21 3 09/23/23 15:00 3 09/23/23 12:00 09/23/23 13:00 3 09/23/23 11:00 3 09/23/23 11:13 3 09/23/23 08:00 3 09/23/23 09:00 3 09/23/23 09:23 09/23/23 09:23 09/23/23 09:23 3 09/23/23 08:00 Intake and Output 09/23/23 09/23/23 09/24/23 15:59 23:59 07:59 Intake Total 360 / 970 240 / 970 250 / 250 Output Total 0 / 0 0 / 0 0 / 0 Balance 360 / 970 240 / 970 250 / 250 Intake: Intake, Oral Amount 360 / 970 240 / 970 250 / 250 Output: Output, Urine Amount 0 / 0 0 / 0 0 / 0 Other: Number of Unmeasured Voids 1 1 1 Number of Bowel Movements 1 Weight 58.96 kg 62.505 kg Patient Weight 09/24/23 23:59 Weight 62.505 kg Laboratory Results - last 24 hr 09/23/23 09:40: WBC 8.2, RBC 4.04 L, Hgb 12.4, Hct 39.5, MCV 97.7, MCH 30.7, MCHC 31.5 L, RDW 14.2, Plt Count 165, MPV 9.1, Neut % (Auto) 85.8 H, Lymph % (Auto) 9.3 L, [place] % (Auto) 2.7, Eos % (Auto) 2.0, Baso % (Auto) 0.2, Neut # (Auto) 7.0, Lymph # (Auto) 0.8, [place] # (Auto) 0.2, Eos # (Auto) 0.2, Baso # (Auto) 0.0, Total Counted 100, Neutrophils % (Manual) 82 H, Band Neutrophils % 7.0, Lymphocytes % (Manual) 9 L, Monocytes % (Manual) 2, Platelet Estimate Normal, RBC Morphology Normal, Sodium 141, Potassium 3.9, Chloride 104, Carbon Dioxide 32 H, Anion Gap 8.9, BUN 18 H D, Creatinine 0.50 L, Estimated Creat Clear 116, Estimated GFR 127, Est GFR ( Amer) 154 D, Glucose 182 H, Calcium 9.0, Total Bilirubin 0.3, AST 39 H, ALT 28, Alkaline Phosphatase 93, Total Protein 5.9 L, Albumin 3.3 L, Globulin 2.6, Albumin/Globulin Ratio 1.3 09/23/23 20:13: Vancomycin Trough 9.6 09/24/23 01:02: Vancomycin Peak 13.9 I & O for Labs for Last 24 Hours: Intake & Output 09/21/23 09/22/23 09/23/23 09/24/23 23:59 23:59 23:59 23:59 Intake Total 720 / 840 720 / 970 250 / 250 Output Total 0 / 0 0 / 0 0 / 0 0 / 0 Balance 0 / 0 720 / 840 720 / 970 250 / 250 Weight 58.922 kg 58.922 kg 58.96 kg 62.505 kg The patient's infection will respond to the chosen ABx?: Yes Is the patient receiving the right drug, dose, and route?: Yes Could a more targeted ABx be ordered?: No (EMPIRIC THERAPY CULTURES PENDING)
[2023-09-24 08:00] VITALS: BP 137/70; PULSE 103; PULSE 79; RESP 22; TEMP 36.5; O2SAT 90
--- NOTE | 2023-09-24 08:47 | EXP.PHA.CONS ---
Pharmacy Consult Date: 09/24/23 Time: 08:47 Referring provider: DR. GONZALEZ Reason for Consult:: VANCOMYCIN TROUGH/PEAK LEVELS AND DOSE ADJUSTMENT Allergies Allergy/AdvReac Type Severity Reaction Status Date / Time No Known Allergies Allergy Verified 09/19/23 13:18 Home Medications Medication Instructions Recorded Confirmed Type lorazepam 1 mg tablet 1 mg PO BIDP PRN Anxiety 04/04/22 09/22/23 History albuterol sulfate 90 mcg/actuation 2 puff inhalation Q6HP PRN 04/09/23 09/21/23 Rx aerosol inhaler Shortness Of Breath #8.5 grams cetirizine 10 mg tablet 10 mg PO DAILY ALLERGIES 09/21/23 09/22/23 History cholecalciferol (vitamin D3) 125 5,000 unit PO DAILY Supplement 09/21/23 09/22/23 History mcg (5,000 unit) tablet (Vitamin D3) fluticasone fur. 100 mcg-umeclid 1 inh inhalation DAILY Copd 09/22/23 09/22/23 History 62.5 mcg-vilant 25 mcg inhalat.powder (Trelegy Ellipta) quetiapine 50 mg tablet 50 mg PO QPMWITHMEAL MOOD 09/22/23 09/21/23 History New Prescriptions to Start Prescriptions: Height: 1.68 m Weight: 62.505 kg Laboratory Results:: Laboratory Results - last 24 hr 09/23/23 09:40: WBC 8.2, RBC 4.04 L, Hgb 12.4, Hct 39.5, MCV 97.7, MCH 30.7, MCHC 31.5 L, RDW 14.2, Plt Count 165, MPV 9.1, Neut % (Auto) 85.8 H, Lymph % (Auto) 9.3 L, [place] % (Auto) 2.7, Eos % (Auto) 2.0, Baso % (Auto) 0.2, Neut # (Auto) 7.0, Lymph # (Auto) 0.8, [place] # (Auto) 0.2, Eos # (Auto) 0.2, Baso # (Auto) 0.0, Total Counted 100, Neutrophils % (Manual) 82 H, Band Neutrophils % 7.0, Lymphocytes % (Manual) 9 L, Monocytes % (Manual) 2, Platelet Estimate Normal, RBC Morphology Normal, Sodium 141, Potassium 3.9, Chloride 104, Carbon Dioxide 32 H, Anion Gap 8.9, BUN 18 H D, Creatinine 0.50 L, Estimated Creat Clear 116, Estimated GFR 127, Est GFR ( Amer) 154 D, Glucose 182 H, Calcium 9.0, Total Bilirubin 0.3, AST 39 H, ALT 28, Alkaline Phosphatase 93, Total Protein 5.9 L, Albumin 3.3 L, Globulin 2.6, Albumin/Globulin Ratio 1.3 09/23/23 20:13: Vancomycin Trough 9.6 09/24/23 01:02: Vancomycin Peak 13.9 Medical History: Medical History (Updated 09/21/23 @ 21:05 by MICHAEL Wheatley) Anxiety Colon perforation COPD exacerbation Ovarian cyst Pneumonia Postoperative anemia Postoperative ileus Tobacco use disorder Assessment and Plan Assessment and plan all Dx Assessment and Plan for all problems:: BASED ON PATIENT FACTORS AND VANCOMYCIN PEAK/TROUGH LEVELS OF 9.6/13.9 RESPECTIVELY, RECOMMEND INCREASING VANCOMYCIN DOSE TO 1,500MG IV EVERY 12 HOURS. PHARMACY WILL CONTINUE TO MONITOR AND WILL ADJUST DOSE APPROPRIATE. -LAURY WOODRUFF, ISAACD
[2023-09-24] MEDS: OSELTAMIVIR 75MG CAPSULE 75 MG PO (08:54)
[2023-09-24] MEDS: LORATADINE 10MG TABLET 10 MG PO (08:55)
[2023-09-24] MEDS: HEPARIN SODIUM 5,000 UNIT/ML VIAL 5000 UNIT SQ (08:55)
[2023-09-24] MEDS: VANCOMYCIN/WATER FOR INJ (PEG) 1.5 GM/300 ML PIGGYBACK IV (08:58)
[2023-09-24] MEDS: BENZONATATE 100MG CAPSULE 100 MG PO ×2 (09:04→13:44)
--- NOTE | 2023-09-24 10:00 | P.CONS_ITS ---
History of Present Illness History of present illness: Ms. Alvarado is a 58-year-old female reported history of tobacco abuse, COPD anxiety hypertension dyslipidemia presented to ER with worsening respiratory distress and pulmonary was called for further evaluation and management. Patient having respiratory symptoms on outpatient basis and was initiated on cefdinir and steroids. [facility] Disclaimer: The information contained in this section may have been updated after the patient was seen, as this information can be updated by other users. Medical History Anxiety Colon perforation COPD exacerbation Ovarian cyst Large complex cystic lesion most likely ovarian in origin. Pneumonia Postoperative anemia Postoperative ileus Tobacco use disorder Surgical History History of cholecystectomy Status post right colon removal Family History Other Cancer Hypertension Social History Smoking Status: Current every day smoker tobacco type: cigarettes packs per day: 1 second hand exposure: Yes alcohol intake: never substance use type: denies use current occupational status: employed Travel in the last 8 weeks: None Review of Systems Constitutional Constitutional: Reports anorexia, Reports body ache(s) and Reports fatigue Eyes Eyes: Denies eye discharge, Denies dry eyes, Denies irritation and Denies itchy eyes ENT Ears, Nose, Mouth, and Throat: Denies epistaxis, Denies facial pain, Denies lip swelling and Denies throat swelling *Cardiovascular Cardiovascular: Reports dyspnea and Reports dyspnea on exertion *Respiratory Respiratory: Reports chest congestion, Reports cough, Reports dyspnea, Reports dyspnea on exertion, Reports excessive phlegm production, Denies hemoptysis, Denies pain on inspiration, Denies pain with cough and Reports wheezing *Gastrointestinal Gastrointestinal: Denies abdominal pain, Denies belching and Denies cramping *Musculoskeletal Musculoskeletal: Reports back pain and Reports myalgias Psychiatric Psychiatric: Denies homicidal ideation and Denies suicidal ideation Endocrine Endocrine: Reports fatigue and Denies heat intolerance Hematologic/Lymphatic Hematologic/Lymphatic: Denies easy bleeding and Denies lymphadenopathy Allergic/Immunologic Allergic/Immunologic: Denies itchy eyes, Denies lip swelling, Denies throat swelling and Reports wheezing Pulmonology Exam Inpatient Vital signs and Labs for Last 24 Hours: Temp Pulse Resp BP Pulse Ox O2 Del Method O2 Flow Rate 97.7 F 79 22 137/70 90 L Nasal Cannula 3 09/24/23 08:00 09/24/23 08:00 09/24/23 08:00 09/24/23 08:00 09/24/23 08:00 09/24/23 08:00 09/24/23 08:00 FiO2 32 09/22/23 18:54 Laboratory Results - last 24 hr 09/23/23 09:40: Total Counted 100, Neutrophils % (Manual) 82 H, Band Neutrophils % 7.0, Lymphocytes % (Manual) 9 L, Monocytes % (Manual) 2, Platelet Estimate Normal, RBC Morphology Normal, Sodium 141, Potassium 3.9, Chloride 104, Carbon Dioxide 32 H, Anion Gap 8.9, BUN 18 H D, Creatinine 0.50 L, Estimated Creat Clear 116, Estimated GFR 127, Est GFR ( Amer) 154 D, Glucose 182 H, Calcium 9.0, Total Bilirubin 0.3, AST 39 H, ALT 28, Alkaline Phosphatase 93, Total Protein 5.9 L, Albumin 3.3 L, Globulin 2.6, Albumin/Globulin Ratio 1.3 09/23/23 20:13: Vancomycin Trough 9.6 09/24/23 01:02: Vancomycin Peak 13.9 I & O for Labs for Last 24 Hours: Intake & Output 09/21/23 09/22/23 09/23/23 09/24/23 23:59 23:59 23:59 23:59 Intake Total 720 / 840 720 / 970 730 / 730 Output Total 0 / 0 0 / 0 0 / 0 0 / 0 Balance 0 / 0 720 / 840 720 / 970 730 / 730 Weight 129 lb 14.4 oz 129 lb 14.4 oz 129 lb 15.753 oz 137 lb 12.8 oz Constitutional: Present moderate distress Head: Present normocephalic and atraumatic ENT: Present normal exam, normal oropharynx and mucous membranes moist Neck: Present normal inspection and full ROM Respiratory: Present respiratory distress, wheezes and diminished air movement; Absent able to speak in complete sentences Cardiac: Present S1/S2, Tachycardia and radial pulses present GI: Present soft and distention; Absent tenderness or guarding Rectal (female): Present deferred (female): Present deferred Skin: Present intact; Absent cyanosis or jaundice Neuro: Present alert, awake and oriented x 3 Extremities: Present normal inspection; Absent clubbing or cyanosis Psychiatric: Present normal affect and cooperative Meds Home Medications and Allergies Home Medications Medication Instructions Recorded Confirmed Type lorazepam 1 mg tablet 1 mg PO BIDP PRN Anxiety 04/04/22 09/22/23 History albuterol sulfate 90 mcg/actuation 2 puff inhalation Q6HP PRN 04/09/23 09/21/23 Rx aerosol inhaler Shortness Of Breath #8.5 grams cetirizine 10 mg tablet 10 mg PO DAILY ALLERGIES 09/21/23 09/22/23 History cholecalciferol (vitamin D3) 125 5,000 unit PO DAILY Supplement 09/21/23 09/22/23 History mcg (5,000 unit) tablet (Vitamin D3) fluticasone fur. 100 mcg-umeclid 1 inh inhalation DAILY Copd 09/22/23 09/22/23 History 62.5 mcg-vilant 25 mcg inhalat.powder (Trelegy Ellipta) quetiapine 50 mg tablet 50 mg PO QPMWITHMEAL MOOD 09/22/23 09/21/23 History New Prescriptions to Start Prescriptions: Allergies Allergy/AdvReac Type Severity Reaction Status Date / Time No Known Allergies Allergy Verified 09/19/23 13:18 Results Laboratory Findings 09/23/23 09:40 09/23/23 09:40 Abnormal lab findings: Abnormal Labs 09/21/23 09/21/23 09/21/23 16:07 16:08 18:15 RBC MCH 31.4 H MCHC Neut % (Auto) 84.8 H Lymph % (Auto) 8.7 L Neut # (Auto) 8.3 H Lymph # (Auto) Neutrophils % (Manual) Lymphocytes % (Manual) VBG pH 7.43 H VBG pO2 78.4 H VBG Total CO2 27.7 H VBG O2 Saturation 96.3 H Carbon Dioxide BUN Creatinine Glucose 117 H AST 43 H Alkaline Phosphatase 144 H NT-Pro-B Natriuret Pep 278 H Total Protein Albumin Influenza A Untype (PCR) Detected A 09/22/23 09/23/23 06:30 09:40 RBC 4.04 L MCH MCHC 31.5 L Neut % (Auto) 91.3 H 85.8 H Lymph % (Auto) 6.3 L 9.3 L Neut # (Auto) 7.9 H Lymph # (Auto) 0.6 L Neutrophils % (Manual) 87 H 82 H Lymphocytes % (Manual) 1 L 9 L VBG pH VBG pO2 VBG Total CO2 VBG O2 Saturation Carbon Dioxide 32 H BUN 18 H D Creatinine 0.50 L Glucose 149 H D 182 H AST 39 H Alkaline Phosphatase NT-Pro-B Natriuret Pep Total Protein 5.9 L Albumin 3.3 L Influenza A Untype (PCR) Assessment and Plan *Assessment and plan (1) Sepsis: Status: Acute Category: Medical Code(s): A41.9 - Sepsis, unspecified organism (2) Influenza A: Status: Acute Category: Medical Code(s): J10.1 - Influenza due to other identified influenza virus with other respiratory manifestations (3) Acute hypoxemic respiratory failure: Status: Acute Category: Medical Code(s): J96.01 - Acute respiratory failure with hypoxia Plan Ms. Alvarado is a 58-year-old female reported history of tobacco abuse, COPD anxiety hypertension dyslipidemia presented to ER with worsening respiratory distress and pulmonary was called for further evaluation and management. Patient having respiratory symptoms on outpatient basis and was initiated on cefdinir and steroids. Afebrile. No evidence of leukocytosis or influenza A PCR positive upon admission. VBG upon admission did not show any evidence of hypoxic/hypercarbic respiratory failure. CT upon admission diffuse centrilobular emphysematous changes, mild tree-in-bud opacities in upper lobes. Biapical scarring also noted. Patient on admission was initiated on vancomycin and Unasyn along with Tamiflu and methylprednisolone. Home Trelegy inhaler was continued. On initial exam patient appeared to be in moderate respiratory distress. Mild wheezing wheezing noted on auscultation, left greater than right. On 3 L saturating 96%, weaned to 1 L. Plan: Wean antibiotics to levofloxacin to complete a total of 5-day course. Prior cultures positive for stenotrophomonas but no risk for HAP. Continue Tamiflu x 5 days Continue DuoNebs every 6 hours along with Pulmicort every 12 scheduled Discontinue methylprednisolone. Continue oxygen supplementation to maintain O2 saturation goal of 90 to 95%. # Thank you for involving pulmonary in this patient care. Will continue to denis michael.
[2023-09-24 12:00] VITALS: BP 146/86; PULSE 83; PULSE 89; RESP 26; TEMP 36.8; O2SAT 89
[2023-09-24] MEDS: LEVOFLOXACIN/D5W 750 MG/150 ML 750 MG/150 ML PIGGYBACK 100 MG IV (13:44)
--- NOTE | 2023-09-24 15:25 | P.PN_ITS ---
Subjective *Date: 09/24/23 *Time: 15:25 Interval history: seen at bedside, has some SOB at rest, still requiring 3/4L NC, not on home O2, denied CP, no nausea vomiting, no fevers overnight, no acute events per RN Exam Data for Last 24 hours Vital signs and Labs for Last 24 Hours: Temp Pulse Resp BP Pulse Ox O2 Del Method O2 Flow Rate 98.2 F 83 26 H 146/86 H 89 L Nasal Cannula 2 09/24/23 12:00 09/24/23 12:00 09/24/23 12:00 09/24/23 12:00 09/24/23 12:00 09/24/23 14:27 09/24/23 14:27 FiO2 32 09/22/23 18:54 Laboratory Results - last 24 hr 09/23/23 20:13: Vancomycin Trough 9.6 09/24/23 01:02: Vancomycin Peak 13.9 I & O for Last 24 hours: Intake & Output 09/21/23 09/22/23 09/23/23 09/24/23 23:59 23:59 23:59 23:59 Intake Total 720 / 840 720 / 970 1450 / 1450 Output Total 0 / 0 0 / 0 0 / 0 0 / 0 Balance 0 / 0 720 / 840 720 / 970 1450 / 1450 Weight 58.922 kg 58.922 kg 58.96 kg 62.505 kg Microbiology Reports for the Last 24 Hours: Microbiology 09/22/23 02:00 Sputum - Expectorated Sputum Gram Stain - Final Constitutional Constitutional: no acute distress *Routine HEENT Exam Head: Present normocephalic Eye: Present EOMI and PERRL ENT: Present mucous membranes moist *Routine Neck Exam Neck: Present supple; Absent lymphadenopathy *Routine Respiratory Exam Respiratory: Present CTA bilaterally *Routine Cardiovascular Exam Cardiovascular: Present RRR *Routine Abdominal Exam Abdominal: Present soft and normoactive bowel sounds; Absent tenderness *Routine Extremities Exam Extremities: Absent cyanosis, clubbing or edema *Routine Skin Exam Skin: Present warm; Absent rash *Routine Neurological Exam Neurological: Present alert and oriented X3 Assessment and Plan *Assessment and plan (1) Sepsis: Status: Acute Category: Medical Code(s): A41.9 - Sepsis, unspecified organism (2) Acute hypoxemic respiratory failure: Status: Acute Category: Medical Code(s): J96.01 - Acute respiratory failure with hypoxia (3) Influenza A: Status: Acute Category: Medical Code(s): J10.1 - Influenza due to other identified influenza virus with other respiratory manifestations (4) Pneumonia: Status: Acute Category: Medical Code(s): J18.9 - Pneumonia, unspecified organism (5) COPD (chronic obstructive pulmonary disease): Status: Acute Category: Medical Code(s): J44.9 - Chronic obstructive pulmonary disease, unspecified (6) Anxiety with depression: Status: Acute Category: Medical Code(s): F41.8 - Other specified anxiety disorders (7) Tobacco use disorder: Status: Acute Category: Medical Code(s): F17.200 - Nicotine dependence, unspecified, uncomplicated Plan 58 year old female presented to [facility] ED for c/o SOB since Sunday. PMHX of htn, tobacco abuse, COPD, and anxiety. On Sunday she went to her PCP and was tested for covid and flu which were negative. She was started on prednisone and cefdinir outpatient which has not helped her SOB. The ED workup revealed that the pt is positive for flu and her CTA of her chest revealed tree in bud opacities mildly scattered. Her lab work reveals a neutrophil shift and WNL chemistry panel. The pt's HR is 120, temp 102.5, and RR 36. The ED physician consulted the hospitalist team for further medical management. I admitted the pt to the medical floor for sepsis related to flu and pneumonia. She is requiring 4L of oxygen. I will continue broad spectrum antibiotics and treatment for the flu. SEPSIS ACUTE HYPOXEMIC RESP FAILURE INFLUENZA A COPDE PNA -CTA of her chest reviewed and reveals tree in bud opacities mildly scattered -SOB started Sunday, initial test was negative, repeat test today positive for influenza A -blood cultures - ngtd - sputum culture - stretomonas -UA - not suggestive of UTI started on levofloxacin -mDC streoids -oseltamivir 75mg BID -Duonebs TID scheduled -maintain o2 above 92% ANXIETY DEPRESSION -awaiting home med req TOBACCO ABUSE -nicotine patch PRN FULL CODE REGULAR DIET DVT: HEPARIN SQ DC 1-2 days pending clinical improvement
[2023-09-24] MEDS: LORazepam 1MG TABLET 1 MG PO (15:46)
[2023-09-24 16:00] VITALS: BP 149/76; PULSE 67; PULSE 80; RESP 24; TEMP 36.7; O2SAT 98
--- NOTE | 2023-10-03 19:33 | P.DS_ITS ---
General Admission date:: 09/21/23 Discharge date: 09/24/23 HPI HPI HPI: 58 year old female presented to [facility] ED for c/o SOB since Sunday. PMHX of htn, hld, tobacco abuse, COPD, and anxiety. On Sunday she went to her PCP and was tested for covid and flu which were negative. She was started on prednisone and cefdinir outpatient which has not helped her SOB. The ED workup revealed that the pt is positive for flu and her CTA of her chest revealed tree in bud opacities mildly scattered. Her lab work reveals a neutrophil shift and WNL chemistry panel. The pt's HR is 120, temp 102.5, and RR 36. The ED physician consulted the hospitalist team for further medical management. I admitted the pt to the medical floor for sepsis related to flu and pneumonia. She is requiring 4L of oxygen. I will continue broad spectrum antibiotics and treatment for the flu. Hospital Course Hospital Course Hospital Course: see same date progress note Exam Data for Last 24 hours Vital signs and Labs for Last 24 Hours: Temp Pulse Resp BP Pulse Ox O2 Del Method O2 Flow Rate 98.0 F 67 24 149/76 H 98 Room Air 2 09/24/23 16:00 09/24/23 16:00 09/24/23 16:00 09/24/23 16:00 09/24/23 16:00 09/24/23 16:00 09/24/23 14:27 FiO2 32 09/22/23 18:54 DS: Diagnosis Discharge Diagnosis (1) Sepsis: Status: Resolved Code(s): A41.9 - Sepsis, unspecified organism (2) Acute hypoxemic respiratory failure: Status: Acute Code(s): J96.01 - Acute respiratory failure with hypoxia (3) Influenza A: Status: Acute Code(s): J10.1 - Influenza due to other identified influenza virus with other respiratory manifestations (4) Pneumonia: Status: Acute Code(s): J18.9 - Pneumonia, unspecified organism (5) COPD (chronic obstructive pulmonary disease): Status: Acute Code(s): J44.9 - Chronic obstructive pulmonary disease, unspecified (6) Anxiety with depression: Status: Acute Code(s): F41.8 - Other specified anxiety disorders (7) Tobacco use disorder: Status: Acute Code(s): F17.200 - Nicotine dependence, unspecified, uncomplicated Meds Home Medications and Allergies Home Medications Medication Instructions Recorded Confirmed Type lorazepam 1 mg tablet 1 mg PO BIDP PRN Anxiety 04/04/22 10/02/23 History albuterol sulfate 90 mcg/actuation 2 puff inhalation Q6HP PRN 04/09/23 10/02/23 Rx aerosol inhaler Shortness Of Breath #8.5 grams cetirizine 10 mg tablet 10 mg PO DAILY 09/21/23 10/02/23 History fluticasone fur. 100 mcg-umeclid 1 inh inhalation DAILY 09/22/23 10/02/23 History 62.5 mcg-vilant 25 mcg inhalat.powder (Trelegy Ellipta) quetiapine 50 mg tablet 50 mg PO QPMWITHMEAL 09/22/23 10/02/23 History nicotine 21 mg/24 hr daily 21 mg transdermal DAILY 30 days 09/25/23 10/02/23 Rx transdermal patch #30 ea cholecalciferol (vitamin D3) 125 5,000 unit PO DAILY #90 tabs 10/02/23 10/02/23 Rx mcg (5,000 unit) tablet (Vitamin D3) ipratropium 0.5 mg-albuterol 3 mg 3 ml inhalation QID PRN shortness 10/02/23 10/02/23 Rx (2.5 mg base)/3 mL nebulization of breath or wheezing #180 mL soln nebulizer accessories #1 ea 10/02/23 10/02/23 Rx nebulizers #1 ea 10/02/23 10/02/23 Rx New Prescriptions to Start Prescriptions: Allergies Allergy/AdvReac Type Severity Reaction Status Date / Time No Known Allergies Allergy Verified 10/02/23 13:06 Discharge Plan Disposition Patient Disposition: Left Against Medical Advice Condition: Good Providers Admit Provider: Татьяна Garcia Attending Provider: Татьяна Garcia
== END 2023-09-24 17:36 | disposition left against medical advice (07) | DRG 871 ==
LOC: ER 16:00 → 2ND 19:46
PROVIDERS: Nurse Practitioner Critical Care Medicine; Admitting Provider Internal Medicine; Emergency Provider Emergency Medicine; PCP Nurse Practitioner; Visit Provider Internal Medicine
DX: A41.9 Sepsis, unspecified organism (principal); J18.9 Pneumonia, unspecified organism; J96.01 Acute respiratory failure with hypoxia; J44.1 Chronic obstructive pulmonary disease with (acute) exacerbation; J10.1 Influenza due to other identified influenza virus with other respiratory manifestations; F17.210 Nicotine dependence, cigarettes, uncomplicated; Z85.038 Personal history of other malignant neoplasm of large intestine; I10 Essential (primary) hypertension; E78.5 Hyperlipidemia, unspecified; F41.9 Anxiety disorder, unspecified; F32.A Depression, unspecified
CPT/HCPCS: 36415; 71045; 71275; 80048; 80053; 80202; 81001; 82803; 83605; 83880; 84484; 85007; 85025; 87040; 87070; 87205; 87636; 93005; 94640; 99291; J0131; J1956; J3370; Q9967

== ENCOUNTER 2023-09-24 17:33 | Observation (INO) | payer OTHER, SELFPAY ==
[2023-09-24] VITALS (8 sets, daily range): BP systolic 141–173; BP diastolic 75–100; PULSE 67–101; RESP 14–27; TEMP 36.8–36.9; O2SAT 84–96; BMI 20.9; BMI 21.2
--- NOTE | 2023-09-24 17:48 | ECG_ITS ---
APPROVED REPORT Exam: Resting ECG HR:74 bpm ECG Measurements Heart Rate 74 AXES AL 136 P 82 QRSd 91 QRS 73 QT 356 T 75 QTc 384 Conclusion SINUS RHYTHM POSSIBLE LEFT ATRIAL ENLARGEMENT [-0.1mV P-WAVE IN V1/V2] INCOMPLETE RIGHT BUNDLE BRANCH BLOCK [90+ ms QRS DURATION, TERMINAL R IN V1/V2, 40+ ms S IN I/aVL/V4/V5/V6] BORDERLINE ECG UNCONFIRMED REPORT Electronically signed by : NATALY KISER, 09/26/2023 06:08:17
--- NOTE | 2023-09-24 17:55 | HMH.EDGENADL ---
Discharge Plan Disposition Patient Disposition: Admitted Prescriptions Prescriptions: No Action lorazepam 1 mg tablet 1 mg PO BIDP PRN (Reason: Anxiety) albuterol sulfate 90 mcg/actuation HFA aerosol inhaler 2 puff inhalation Q6HP PRN (Reason: Shortness Of Breath) Qty: 8.5 5RF cetirizine 10 mg tablet 10 mg PO DAILY cholecalciferol (vitamin D3) [Vitamin D3] 125 mcg (5,000 unit) tablet 5,000 unit PO DAILY quetiapine 50 mg tablet 50 mg PO QPMWITHMEAL Trelegy Ellipta 100-62.5-25 mcg blister with device 1 inh inhalation DAILY Referrals Follow up/Referrals: Sherlyn Doss APRN [Primary Care Provider] - See instructions Clinical Impressions Clinical Impression: Acute hypoxic respiratory failure Discharge ED Provider: Evelio Brantley General Adult HPI General Stated complaint: soa pnemonia/flu positive Time Seen by Provider: 09/24/23 17:52 History of Present Illness HPI narrative: Patient is a 58-year-old female who is admitted today for acute hypoxic respiratory failure COPD exacerbation influenza A with a new oxygen requirement who decided to leave AMA just about 20 minutes ago. She left the hospital because I just no better . She was gone for about 20 minutes and states that she felt horrible was very short of breath and came back to the emergency department wants to be readmitted. She has no new or different symptoms than her recent hospitalization and progress notes. Related Data Home Medications Medication Instructions Recorded Confirmed lorazepam 1 mg tablet 1 mg PO BIDP PRN Anxiety 04/04/22 09/22/23 cetirizine 10 mg tablet 10 mg PO DAILY ALLERGIES 09/21/23 09/22/23 cholecalciferol (vitamin D3) 125 5,000 unit PO DAILY Supplement 09/21/23 09/22/23 mcg (5,000 unit) tablet (Vitamin D3) fluticasone fur. 100 mcg-umeclid 1 inh inhalation DAILY Copd 09/22/23 09/22/23 62.5 mcg-vilant 25 mcg inhalat.powder (Trelegy Ellipta) quetiapine 50 mg tablet 50 mg PO QPMWITHMEAL MOOD 09/22/23 09/21/23 Previous Rx's Medication Instructions Recorded albuterol sulfate 90 mcg/actuation 2 puff inhalation Q6HP PRN 04/09/23 aerosol inhaler Shortness Of Breath #8.5 grams Allergies Allergy/AdvReac Type Severity Reaction Status Date / Time No Known Allergies Allergy Verified 09/19/23 13:18 [facility] Disclaimer: The information contained in this section may have been updated after the patient was seen, as this information can be updated by other users. Medical History Anxiety Colon perforation COPD exacerbation Ovarian cyst Large complex cystic lesion most likely ovarian in origin. Pneumonia Postoperative anemia Postoperative ileus Tobacco use disorder Surgical History History of cholecystectomy Status post right colon removal Family History Other Cancer Hypertension Social History Smoking Status: Current every day smoker tobacco type: cigarettes packs per day: 1 second hand exposure: Yes alcohol intake: never substance use type: denies use current occupational status: employed Travel in the last 8 weeks: None ROS Obtained: Yes All systems reviewed & no additional complaints except as documented Physical Exam General General appearance: alert Respiratory Respiratory exam: Present other (Oxygen saturations 84% on room air placed on nasal cannula mild respiratory distress wheezing throughout) Cardiovascular Cardiovascular exam: Present regular rate Neurological Exam Neurological exam: Present alert Medical Decision Making Nadeem Inquiry Pt receiving controlled substance: No Medical Decision Narrative: With above history she still has significant hypoxemia placed back on nasal cannula she does not have any oxygen to go home with. She just left AMA few minutes ago wants to be readmitted in the hospital will discuss the case with hospital medicine cannot discharge her in this state. She will be admitted for further evaluation and management no further emergency testing has been done and she has been extensively worked up and evaluated and had ongoing treatment in the hospital but needs to be continued. Critical Care Critical Care Time Critical Care Time: No
--- NOTE | 2023-09-24 18:36 | PC.NURSE ---
DR CHRISTIANSEN SPEAKING WITH DR GONZALEZ
--- NOTE | 2023-09-24 19:12 | PC.NURSE ---
Pt ambulatory to bathroom and back to bed. Pt updated on current POC and voiced understanding. No other needs voiced at this time and call light within reach.
--- NOTE | 2023-09-24 19:28 | PC.NURSE ---
[employer] LO[employer]TER NOTIFIED OF ADMISSION
--- NOTE | 2023-09-24 19:33 | PC.NURSE ---
Notified at 1929 need for bed. Charge notified need for bed. 207 assigned. Registration notified.
--- NOTE | 2023-09-24 20:33 | PC.NURSE ---
Patient arrived to floor via stretcher from ED at 19:48.
--- NOTE | 2023-09-24 21:38 | EXP.HP ---
History of Present Illness *Admission Date: 09/24/23 *Reason for visit:: Acute hypoxic resp failure *History of present illness: 58 year old female presented to [facility] ED on 09/21/23 for c/o SOB. PMHX of htn, tobacco abuse, COPD, and anxiety. She went to her PCP and was tested for covid and flu which were negative. She was started on prednisone and cefdinir outpatient which has not helped her SOB. The ED workup revealed that the pt is positive for flu and her CTA of her chest revealed tree in bud opacities mildly scattered. Her lab work on 09/23/23 revealed a neutrophil shift and WNL chemistry panel. The pt's HR is 120, temp 102.5, and RR 36. The ED physician consulted the hospitalist team for further medical management. I admitted the pt to the medical floor for sepsis related to flu and pneumonia. She was requiring 4L of oxygen. Broad spectrum antibiotics and treatment for the flu were started. This afternoon the pt decided she wanted to leave AMA. She left the hospital and returned within 20 mins for readmission. The ED physician consulted the hospitalist team. I admitted the pt to the medical floor. She is still requiring oxygen. Will continue dounebs, oseltamivir, and levofloxacin [facility] Disclaimer: The information contained in this section may have been updated after the patient was seen, as this information can be updated by other users. Medical History (Updated 09/24/23 @ 22:03 by MICHAEL Wheatley) Anxiety Colon perforation COPD exacerbation Ovarian cyst Pneumonia Postoperative anemia Postoperative ileus Tobacco use disorder Surgical History History of cholecystectomy Status post right colon removal Family History Other Cancer Hypertension Social History Smoking Status: Current every day smoker tobacco type: cigarettes packs per day: 1 second hand exposure: Yes alcohol intake: never substance use type: denies use current occupational status: employed Travel in the last 8 weeks: None Review of Systems Review of Systems Review of systems:: pertinent systems reviewed and negative unless documented below Meds Home Medications and Allergies Home Medications Medication Instructions Recorded Confirmed Type lorazepam 1 mg tablet 1 mg PO BIDP PRN Anxiety 04/04/22 09/24/23 History albuterol sulfate 90 mcg/actuation 2 puff inhalation Q6HP PRN 04/09/23 09/24/23 Rx aerosol inhaler Shortness Of Breath #8.5 grams cetirizine 10 mg tablet 10 mg PO DAILY 09/21/23 09/24/23 History cholecalciferol (vitamin D3) 125 5,000 unit PO DAILY 09/21/23 09/24/23 History mcg (5,000 unit) tablet (Vitamin D3) fluticasone fur. 100 mcg-umeclid 1 inh inhalation DAILY 09/22/23 09/24/23 History 62.5 mcg-vilant 25 mcg inhalat.powder (Trelegy Ellipta) quetiapine 50 mg tablet 50 mg PO QPMWITHMEAL 09/22/23 09/24/23 History levofloxacin 750 mg tablet 750 mg PO DAILY 6 days #6 tabs 09/25/23 Rx nicotine 21 mg/24 hr daily 21 mg transdermal DAILY 30 days 09/25/23 Rx transdermal patch #30 ea oseltamivir 75 mg capsule (Tamiflu) 75 mg PO BID 1 day #2 caps 09/25/23 Rx New Prescriptions to Start Prescriptions: levofloxacin Lj Jackson nicotine Lj Jackson oseltamivir [Tamiflu] Lj Jackson Allergies Allergy/AdvReac Type Severity Reaction Status Date / Time No Known Allergies Allergy Verified 09/19/23 13:18 Exam Data for Last 24 hours Vital signs and Labs for Last 24 Hours: Temp Pulse Resp BP Pulse Ox O2 Del Method O2 Flow Rate 98.2 F 73 22 141/75 H 94 L Nasal Cannula 2 09/24/23 19:49 09/24/23 19:49 09/24/23 19:49 09/24/23 19:49 09/24/23 19:30 09/24/23 19:00 09/24/23 19:00 I & O for Last 24 hours: Intake & Output 09/21/23 09/22/23 09/23/23 09/24/23 23:59 23:59 23:59 23:59 Weight 58.967 kg Constitutional Constitutional: thin *Routine HEENT Exam Head: Present normocephalic Eye: Present EOMI ENT: Present mucous membranes dry *Routine Neck Exam Neck: Present full ROM *Routine Respiratory Exam Respiratory: Present wheezes and symmetric chest movement *Routine Cardiovascular Exam Cardiovascular: Present RRR *Routine Abdominal Exam Abdominal: Present soft and normoactive bowel sounds; Absent tenderness *Routine Rectal Exam Rectal:: deferred *Routine Genitalia Exam Genitalia:: deferred *Routine Extremities Exam Extremities: Present full ROM *Routine Skin Exam Skin: Present intact *Routine Neurological Exam Neurological: Present alert and oriented X3 Assessment and Plan *Assessment and plan (1) Acute hypoxemic respiratory failure: Status: Acute Category: Medical Code(s): J96.01 - Acute respiratory failure with hypoxia (2) Influenza A: Status: Acute Category: Medical Code(s): J10.1 - Influenza due to other identified influenza virus with other respiratory manifestations (3) COPD (chronic obstructive pulmonary disease): Status: Acute Category: Medical Code(s): J44.9 - Chronic obstructive pulmonary disease, unspecified (4) Pneumonia: Status: Acute Category: Medical Code(s): J18.9 - Pneumonia, unspecified organism (5) HTN (hypertension): Status: Acute Category: Medical Code(s): I10 - Essential (primary) hypertension (6) Anxiety: Status: Acute Category: Medical Code(s): F41.9 - Anxiety disorder, unspecified (7) Depression: Status: Acute Category: Medical Code(s): F32.A - Depression, unspecified (8) Tobacco use disorder: Status: Acute Category: Medical Code(s): F17.200 - Nicotine dependence, unspecified, uncomplicated Plan 58 year old female presented to [facility] ED on 09/21/23 for c/o SOB. PMHX of htn, tobacco abuse, COPD, and anxiety. She went to her PCP and was tested for covid and flu which were negative. She was started on prednisone and cefdinir outpatient which has not helped her SOB. The ED workup revealed that the pt is positive for flu and her CTA of her chest revealed tree in bud opacities mildly scattered. Her lab work on 09/23/23 revealed a neutrophil shift and WNL chemistry panel. The pt's HR is 120, temp 102.5, and RR 36. The ED physician consulted the hospitalist team for further medical management. I admitted the pt to the medical floor for sepsis related to flu and pneumonia. She was requiring 4L of oxygen. Broad spectrum antibiotics and treatment for the flu were started. This afternoon the pt decided she wanted to leave AMA. She left the hospital and returned within 20 mins for readmission. The ED physician consulted the hospitalist team. I admitted the pt to the medical floor. She is still requiring oxygen. Will continue dounebs, oseltamivir, and levofloxacin. ACUTE HYPOXEMIC RESP FAILURE INFLUENZA A COPDE PNA -CTA of her chest reviewed and reveals tree in bud opacities mildly scattered on 09/21/23 -positive for influenza A, on day four of oseltamivir -blood cultures - ngtd - sputum culture - stretomonas -UA - not suggestive of UTI -started on levofloxacin 750 mg Q 24 hr -oseltamivir 75mg BID for total of five days -Duonebs TID scheduled -maintain o2 above 92% ANXIETY DEPRESSION HTN -awaiting home med req TOBACCO ABUSE -nicotine patch PRN FULL CODE REGULAR DIET DVT: HEPARIN SQ Rounded on patient after nurse practitioner. Personally examined and interviewed patient. Agree with exam findings and care plan as documented.
[2023-09-24] MEDS: LEVOFLOXACIN/D5W 750 MG/150 ML 750 MG/150 ML PIGGYBACK 100 MG IV (22:30)
[2023-09-25] MEDS: LORazepam 1MG TABLET 1 MG PO (00:09)
[2023-09-25] MEDS: guaiFENesin 600 MG TAB.ER.12H PO (00:09)
[2023-09-25] MEDS: QUETIAPINE 25MG TABLET 50 MG PO (00:10)
[2023-09-25 04:00] VITALS: BP 140/77; PULSE 83; RESP 20; TEMP 36.7; O2SAT 95; BMI 20.9
--- NOTE | 2023-09-25 06:20 | PC.NURSE ---
pt admitted after signing out ama on 09/23. pt currently on 2l/nc, sats 96%. cont char filter tank tender cough, mucinex ordered. pt received levaquin 750 mg via ivpb.
[2023-09-25 06:24] LABS: Anion Gap 5.1 mEq/L (5-15); Blood Urea Nitrogen 17 mg/dl (7-17); Calcium 8.8 mg/dl (8.4-10.2); Carbon Dioxide 38 mmol/L (22.0-30.0); Chloride 101 mmol/L (98-107); Creatinine Clearance Estimated 83 mL/min (50-200); Estimated Glomerular Filt Rate 86 ml/min (>60); GFR (African American) 104 ML/MIN (>60); Glucose 84 mg/dl (74-100); Potassium 3.1 mmoL/L (3.5-5.1); Sodium 141 mmol/L (136-145)
[2023-09-25 06:37] VITALS: PULSE 85; PULSE 90; O2SAT 93
[2023-09-25 06:37] LABS: Basophils # 0.1 K/mm3 (0-0.2); Basophils % 0.7 % (0.1-2.0); Eosinophils % 0.1 % (0.1-12.0); Hematocrit 41.4 % (37.0-47.0); Hemoglobin 13.1 g/dL (12.2-16.2); Lymphocytes # 2.3 K/mm3 (0.7-4.5); Lymphocytes % 27.2 % (10-50); Mean Corpuscular HGB Conc 31.6 g/dL (31.8-35.4); Mean Corpuscular Hemoglobin 30.8 pg (27.0-31.2); Mean Corpuscular Volume 97.6 fl (81-99); Mean Platelet Volume 9.1 fl (7.4-10.4); Monocytes # 0.4 K/mm3 (0.1-1.0); Neutrophils # 5.6 K/mm3 (1.8-7.8); Platelet Count 186 K/mm3 (142-424); Red Blood Count 4.25 M/mm3 (4.20-5.40); Red Cell Distribution Width 13.9 % (11.5-17.5); White Blood Count 8.4 K/mm3 (4.8-10.8)
[2023-09-25] MEDS: LEVALBUTEROL 1.25MG/3ML NEB 1.25 MG IH ×2 (06:37→09:41)
--- NOTE | 2023-09-25 07:19 | HMH.PHAINT1 ---
Pharmacy Intervention Comments: Verfied home medication list using external fill history and referenced provider notes, as patient was admitted 09/21/23 and left AMA 09/24/23 only to come back and get readmitted the same day.
--- NOTE | 2023-09-25 07:49 | P.DS_ITS ---
General Admission date:: 09/24/23 Discharge date: 09/25/23 HPI HPI HPI: 58 year old female presented to [facility] ED on 09/21/23 for c/o SOB. PMHX of htn, tobacco abuse, COPD, and anxiety. She went to her PCP and was tested for covid and flu which were negative. She was started on prednisone and cefdinir outpatient which has not helped her SOB. The ED workup revealed that the pt is positive for flu and her CTA of her chest revealed tree in bud opacities mildly scattered. Her lab work on 09/23/23 revealed a neutrophil shift and WNL chemistry panel. The pt's HR is 120, temp 102.5, and RR 36. The ED physician consulted the hospitalist team for further medical management. I admitted the pt to the medical floor for sepsis related to flu and pneumonia. She was requiring 4L of oxygen. Broad spectrum antibiotics and treatment for the flu were started. This afternoon the pt decided she wanted to leave AMA. She left the hospital and returned within 20 mins for readmission. The ED physician consulted the hospitalist team. I admitted the pt to the medical floor. She is still requiring oxygen. Will continue dounebs, oseltamivir, and levofloxacin Hospital Course Hospital Course Hospital Course: 58 year old female presented to [facility] ED on 09/21/23 for c/o SOB. PMHX of htn, tobacco abuse, COPD, and anxiety. She went to her PCP and was tested for covid and flu which were negative. She was started on prednisone and cefdinir outpatient which has not helped her SOB. The ED workup revealed that the pt is positive for flu and her CTA of her chest revealed tree in bud opacities mildly scattered. Her lab work on 09/23/23 revealed a neutrophil shift and WNL chemistry panel. The pt's HR is 120, temp 102.5, and RR 36. The ED physician consulted the hospitalist team for further medical management. Admitted to medicine for further management of sepsis and flu. Initially on oxygen requiring 4 L. Responding well to treatment during admission. Strongly encouraged to stay and allow us to treat her. Has done well during admission. Stable to discharge home. Will continue medical management. Problems addressed as follows: ACUTE HYPOXEMIC RESP FAILURE INFLUENZA A COPD PNA -Presentation, patient found to be hypoxic. CTA of the chest reviewed and revealed tree-in-bud opacities. Positive for flu A. Will complete 5-day course of Tamiflu. Initiated on levofloxacin. Will complete 5-day course of Levaquin. Continues to require oxygen, discharged with home oxygen. Strongly encourage smoking cessation. Continue breathing treatments with Adderall inhaler and Trelegy inhaler. Stable to discharge home with family. ANXIETY DEPRESSION -Resume home regimen including Ativan and Seroquel. TOBACCO ABUSE: Nicotine patch during admission, prescribed at discharge. Total time spent on discharge 32 minutes in counseling, documentation, chart review, and direct care with patient. Exam Data for Last 24 hours Vital signs and Labs for Last 24 Hours: Temp Pulse Resp BP Pulse Ox O2 Del Method O2 Flow Rate 98.1 F 85 20 140/77 93 L Nasal Cannula 2 09/25/23 04:00 09/25/23 06:37 09/25/23 04:00 09/25/23 04:00 09/25/23 06:37 09/25/23 07:00 09/25/23 07:00 Laboratory Results - last 24 hr 09/25/23 05:32: WBC 8.4, RBC 4.25, Hgb 13.1, Hct 41.4, MCV 97.6, MCH 30.8, MCHC 31.6 L, RDW 13.9, Plt Count 186, MPV 9.1, Neut % (Auto) 67.0, Lymph % (Auto) 27.2, [place] % (Auto) 5.0, Eos % (Auto) 0.1, Baso % (Auto) 0.7, Neut # (Auto) 5.6, Lymph # (Auto) 2.3, [place] # (Auto) 0.4, Eos # (Auto) 0.0, Baso # (Auto) 0.1, Sodium 141, Potassium 3.1 L D, Chloride 101, Carbon Dioxide 38 H, Anion Gap 5.1, BUN 17, Creatinine 0.70 D, Estimated Creat Clear 83, Estimated GFR 86, Est GFR ( Amer) 104 D, Glucose 84, Calcium 8.8 I & O for Last 24 hours: Intake & Output 09/22/23 09/23/23 09/24/23 09/25/23 23:59 23:59 23:59 23:59 Output Total 0 / 0 600 / 600 Balance 0 / 0 -600 / -600 Weight 59.874 kg 59.024 kg Results Data Completed and Pending Labs on day of discharge: Labs from last 24 hours 09/25/23 05:32 WBC 8.4 RBC 4.25 Hgb 13.1 Hct 41.4 MCV 97.6 MCH 30.8 MCHC 31.6 L RDW 13.9 Plt Count 186 MPV 9.1 Neut % (Auto) 67.0 Lymph % (Auto) 27.2 [place] % (Auto) 5.0 Eos % (Auto) 0.1 Baso % (Auto) 0.7 Neut # (Auto) 5.6 Lymph # (Auto) 2.3 [place] # (Auto) 0.4 Eos # (Auto) 0.0 Baso # (Auto) 0.1 Sodium 141 Potassium 3.1 L D Chloride 101 Carbon Dioxide 38 H Anion Gap 5.1 BUN 17 Creatinine 0.70 D Estimated Creat Clear 83 Estimated GFR 86 Est GFR ( Amer) 104 D Glucose 84 Calcium 8.8 DS: Diagnosis Discharge Diagnosis (1) Acute hypoxemic respiratory failure: Status: Acute Code(s): J96.01 - Acute respiratory failure with hypoxia (2) Influenza A: Status: Acute Code(s): J10.1 - Influenza due to other identified influenza virus with other respiratory manifestations (3) COPD (chronic obstructive pulmonary disease): Status: Acute Code(s): J44.9 - Chronic obstructive pulmonary disease, unspecified (4) Pneumonia: Status: Acute Code(s): J18.9 - Pneumonia, unspecified organism (5) HTN (hypertension): Status: Acute Code(s): I10 - Essential (primary) hypertension (6) Anxiety: Status: Acute Code(s): F41.9 - Anxiety disorder, unspecified (7) Depression: Status: Acute Code(s): F32.A - Depression, unspecified (8) Tobacco use disorder: Status: Acute Code(s): F17.200 - Nicotine dependence, unspecified, uncomplicated Meds Home Medications and Allergies Home Medications Medication Instructions Recorded Confirmed Type lorazepam 1 mg tablet 1 mg PO BIDP PRN Anxiety 04/04/22 09/24/23 History albuterol sulfate 90 mcg/actuation 2 puff inhalation Q6HP PRN 04/09/23 09/24/23 Rx aerosol inhaler Shortness Of Breath #8.5 grams cetirizine 10 mg tablet 10 mg PO DAILY 09/21/23 09/24/23 History cholecalciferol (vitamin D3) 125 5,000 unit PO DAILY 09/21/23 09/24/23 History mcg (5,000 unit) tablet (Vitamin D3) fluticasone fur. 100 mcg-umeclid 1 inh inhalation DAILY 09/22/23 09/24/23 His tory 62.5 mcg-vilant 25 mcg inhalat.powder (Trelegy Ellipta) quetiapine 50 mg tablet 50 mg PO QPMWITHMEAL 09/22/23 09/24/23 History levofloxacin 750 mg tablet 750 mg PO DAILY 6 days #6 tabs 09/25/23 Rx nicotine 21 mg/24 hr daily 21 mg transdermal DAILY 30 days 09/25/23 Rx transdermal patch #30 ea oseltamivir 75 mg capsule (Tamiflu) 75 mg PO BID 1 day #2 caps 09/25/23 Rx New Prescriptions to Start Prescriptions: Lj Gaytan nicotine Lj Jackson oseltamivir [Tamiflu] Lj Jackson Allergies Allergy/AdvReac Type Severity Reaction Status Date / Time No Known Allergies Allergy Verified 09/19/23 13:18 Discharge Plan Disposition Patient Disposition: Home, Self-Care Condition: Fair Follow up Plan Prescriptions/Medication Reconciliation: New oseltamivir [Tamiflu] 75 mg Capsule 75 mg PO BID 1 Days Qty: 2 0RF nicotine 21 mg/24 hr Patch 24 Hour 21 mg transdermal DAILY 30 Days Qty: 30 0RF levofloxacin 750 mg tablet 750 mg PO DAILY 6 Days Qty: 6 0RF Continued lorazepam 1 mg tablet 1 mg PO BIDP PRN (Reason: Anxiety) albuterol sulfate 90 mcg/actuation HFA aerosol inhaler 2 puff inhalation Q6HP PRN (Reason: Shortness Of Breath) Qty: 8.5 5RF cetirizine 10 mg tablet 10 mg PO DAILY cholecalciferol (vitamin D3) [Vitamin D3] 125 mcg (5,000 unit) tablet 5,000 unit PO DAILY quetiapine 50 mg tablet 50 mg PO QPMWITHMEAL Trelegy Ellipta 100-62.5-25 mcg blister with device 1 inh inhalation DAILY Other Ambulatory Orders: Home Medical Equipment (Routine) Location: None Selected Ordered By: Lj Jackson Problem Reconciliation Problems Reviewed?: Yes Patient Discharge Instructions ACTIVITY: Continue current activity DIET: continue same diet Providers Primary Care Provider: Sherlyn Doss Admit Provider: Татьяна Garcia Attending Provider: Татьяна Garcia
[2023-09-25 08:00] VITALS: BP 129/80; PULSE 87; RESP 20; TEMP 36.2; O2SAT 87; O2SAT 91
[2023-09-25] MEDS: HEPARIN SODIUM 5,000 UNIT/ML VIAL 5000 UNIT SQ (09:18)
[2023-09-25] MEDS: LORATADINE 10MG TABLET 10 MG PO (09:18)
[2023-09-25] MEDS: OSELTAMIVIR 75MG CAPSULE 75 MG PO (09:18)
--- NOTE | 2023-09-25 09:35 | P.PN_ITS ---
Subjective *Date: 09/25/23 *Time: 10:48 Interval history: No acute respiratory events overnight. Patient left AMA and came back to the hospital. Patient wanting to leave the house today. Pulmonology Exam Inpatient Vital signs and Labs for Last 24 Hours: Temp Pulse Resp BP Pulse Ox O2 Del Method O2 Flow Rate 97.2 F L 87 20 129/80 87 L Room Air 2 09/25/23 08:00 09/25/23 08:00 09/25/23 08:00 09/25/23 08:00 09/25/23 08:00 09/25/23 08:00 09/25/23 07:00 Laboratory Results - last 24 hr 09/25/23 05:32: WBC 8.4, RBC 4.25, Hgb 13.1, Hct 41.4, MCV 97.6, MCH 30.8, MCHC 31.6 L, RDW 13.9, Plt Count 186, MPV 9.1, Neut % (Auto) 67.0, Lymph % (Auto) 27.2, [place] % (Auto) 5.0, Eos % (Auto) 0.1, Baso % (Auto) 0.7, Neut # (Auto) 5.6, Lymph # (Auto) 2.3, [place] # (Auto) 0.4, Eos # (Auto) 0.0, Baso # (Auto) 0.1, Sodium 141, Potassium 3.1 L D, Chloride 101, Carbon Dioxide 38 H, Anion Gap 5.1, BUN 17, Creatinine 0.70 D, Estimated Creat Clear 83, Estimated GFR 86, Est GFR ( Amer) 104 D, Glucose 84, Calcium 8.8 I & O for Labs for Last 24 Hours: Intake & Output 09/22/23 09/23/23 09/24/23 09/25/23 23:59 23:59 23:59 23:59 Intake Total 0 / 0 Output Total 0 / 0 600 / 600 Balance 0 / 0 -600 / -600 Weight 132 lb 130 lb 2 oz Constitutional: Present moderate distress Head: Present normocephalic and atraumatic ENT: Present normal exam, normal oropharynx and mucous membranes moist Neck: Present normal inspection and full ROM Respiratory: Present respiratory distress, wheezes and able to speak in complete sentences Cardiac: Present S1/S2, Tachycardia and radial pulses present GI: Present soft and distention; Absent tenderness or guarding Rectal (female): Present deferred (female): Present deferred Skin: Present intact; Absent cyanosis or jaundice Neuro: Present alert, awake and oriented x 3 Extremities: Present normal inspection; Absent clubbing or cyanosis Psychiatric: Present normal affect and cooperative Assessment and Plan *Assessment and plan (1) Sepsis: Status: Acute Category: Medical Code(s): A41.9 - Sepsis, unspecified organism (2) Influenza A: Status: Acute Category: Medical Code(s): J10.1 - Influenza due to other identified influenza virus with other respiratory manifestations (3) Acute hypoxemic respiratory failure: Status: Acute Category: Medical Code(s): J96.01 - Acute respiratory failure with hypoxia Plan Ms. Alvarado is a 58-year-old female reported history of tobacco abuse, COPD anxiety hypertension dyslipidemia presented to ER with worsening respiratory distress and pulmonary was called for further evaluation and management. Patient having respiratory symptoms on outpatient basis and was initiated on cefdinir and steroids. Afebrile. No evidence of leukocytosis or influenza A PCR positive upon ad mission. VBG upon admission did not show any evidence of hypoxic/hypercarbic respiratory failure. CT upon admission diffuse centrilobular emphysematous changes, mild tree-in-bud opacities in upper lobes. Biapical scarring also noted. Patient on admission was initiated on vancomycin and Unasyn along with Tamiflu and methylprednisolone. Home Trelegy inhaler was continued. On initial exam patient appeared to be in moderate respiratory distress. Mild wheezing wheezing noted on auscultation, left greater than right. On 3 L saturating 96%, weaned to 1 L. Interval update: No acute respiratory vents overnight. Continue to receive levofloxacin Tamiflu and nebs. Stable leukocytosis. Afebrile. Hemodynamically stable. Continue treatment 2 L nasal cannula. Bilateral wheezing, slightly improved. Patient would like to go home today. Plan: Continue levofloxacin to complete a total of 7-day course. Prior cultures positive for stenotrophomonas but no risk for HAP. Continue Tamiflu x 5 days Continue DuoNebs every 6 hours along with Pulmicort every 12 scheduled Continue oxygen supplementation to maintain O2 saturation goal of 90 to 95%. Currently on 2 L. # Thank you for involving pulmonary in this patient care. Patient can be discharged home on pulmonary standpoint on levofloxacin to complete a total of 7-day course, Tamiflu for 5 days along with Trelegy 100 inhaler and DuoNebs ever y 6 hours on as-needed basis. Patient also needs oxygen supplementation as this is new for her. Will follow the patient in pulmonary clinic 5 days post discharge
[2023-09-25 09:41] VITALS: PULSE 77; O2SAT 93
[2023-09-25] MEDS: CHOLECALCIFEROL 1,000 UNITS (25MCG) TABLET 25 MCG PO (09:52)
--- NOTE | 2023-09-25 13:05 | PC.NURSE ---
O2 saturation on room air was 87%, oxygen reapplied 2L nasal cannula.
[2023-09-25 15:38] VITALS: BP 139/77; PULSE 87; RESP 20; TEMP 36.9; O2SAT 83
--- NOTE | 2023-09-26 15:46 | SW/DCPLANNER ---
Follow up phone call w/ this patient: patient stated that she is doing well at home. Patient was able to cone picker all of her medications. No further questions/needs at this time.
== END 2023-09-25 16:45 | disposition home or self-care (01) ==
LOC: ER 18:01 → 2ND 19:59
PROVIDERS: Nurse Practitioner Critical Care Medicine; Admitting Provider Internal Medicine; Emergency Provider Student in an Organized Health Care Education/Training Program; PCP Nurse Practitioner; Visit Provider Internal Medicine
DX: J96.01 Acute respiratory failure with hypoxia (principal); J18.9 Pneumonia, unspecified organism; J44.1 Chronic obstructive pulmonary disease with (acute) exacerbation; J44.0 Chronic obstructive pulmonary disease with (acute) lower respiratory infection; F17.210 Nicotine dependence, cigarettes, uncomplicated; F41.9 Anxiety disorder, unspecified; F32.A Depression, unspecified
CPT/HCPCS: 36415; 80048; 85025; 93005; 94640; 94761; 99285; G0378; J1956

== ENCOUNTER 2023-10-02 18:52 | Outpatient (CLI) | payer OTHER, SELFPAY ==
[2023-10-02 19:08] LABS: Basophils # 0.1 K/mm3 (0-0.2); Basophils % 0.9 % (0.1-2.0); Eosinophils # 0.3 K/mm3 (0.0-0.4); Hematocrit 47.2 % (37.0-47.0); Hemoglobin 15.1 g/dL (12.2-16.2); Lymphocytes # 1.7 K/mm3 (0.7-4.5); Mean Corpuscular HGB Conc 31.9 g/dL (31.8-35.4); Mean Corpuscular Hemoglobin 31.2 pg (27.0-31.2); Mean Corpuscular Volume 97.8 fl (81-99); Mean Platelet Volume 10.6 fl (7.4-10.4); Monocytes # 0.4 K/mm3 (0.1-1.0); Monocytes % 4.9 % (1.7-9.3); Neutrophils # 5.9 K/mm3 (1.8-7.8); Neutrophils % 70.3 % (37.0-80.0); Platelet Count 261 K/mm3 (142-424); Red Blood Count 4.83 M/mm3 (4.20-5.40); Red Cell Distribution Width 13.9 % (11.5-17.5); White Blood Count 8.3 K/mm3 (4.8-10.8)
[2023-10-02 19:35] LABS: Alanine Aminotransferase 24 U/L (12-78); Albumin/Globulin Ratio 1.4 (1.1-1.8); Alkaline Phosphatase 144 U/L (38-126); Anion Gap 13.5 mEq/L (5-15); Aspartate Amino Transferase 23 U/L (14-36); Bilirubin,Total 0.9 mg/dl (0.2-1.3); Blood Urea Nitrogen 18 mg/dl (7-17); Calcium 9.5 mg/dl (8.4-10.2); Carbon Dioxide 26 mmol/L (22.0-30.0); Chloride 105 mmol/L (98-107); Estimated Glomerular Filt Rate 74 ml/min (>60); GFR (African American) 89 ML/MIN (>60); Globulin 2.8 g/dL (1.3-3.2); Glucose 117 mg/dl (74-100); Potassium 4.5 mmoL/L (3.5-5.1); Sodium 140 mmol/L (136-145); Total Protein,Serum 6.8 g/dl (6.3-8.2)
== END 2023-10-02 23:59 ==
LOC: LAB.DROPOF 18:52
PROVIDERS: PCP Nurse Practitioner; Visit Provider Nurse Practitioner
DX: J96.01 Acute respiratory failure with hypoxia (principal); J44.1 Chronic obstructive pulmonary disease with (acute) exacerbation; F17.210 Nicotine dependence, cigarettes, uncomplicated
CPT/HCPCS: 80053; 85025

== ENCOUNTER 2023-12-13 09:32 | Outpatient (CLI) | payer OTHER, SELFPAY | END 2023-12-13 23:59 | disposition home or self-care (01) | PROVIDERS: PCP Nurse Practitioner; Visit Provider Internal Medicine Pulmonary Disease | DX: R06.09 Other forms of dyspnea (principal) | CPT/HCPCS: 94060; 94618; 94726; 94729 ==

== ENCOUNTER 2024-04-14 10:13 | Outpatient (CLI) | payer OTHER, SELFPAY ==
[2024-04-14 18:51] LABS: Basophils % 0.8 % (0.1-2.0); Eosinophils # 0.1 K/mm3 (0.0-0.4); Eosinophils % 1.7 % (0.1-12.0); Hematocrit 50.9 % (37.0-47.0); Lymphocytes # 1.5 K/mm3 (0.7-4.5); Lymphocytes % 29.7 % (10-50); Mean Corpuscular HGB Conc 31.4 g/dL (31.8-35.4); Mean Corpuscular Hemoglobin 31.7 pg (27.0-31.2); Mean Corpuscular Volume 101.1 fl (81-99); Mean Platelet Volume 11.5 fl (7.4-10.4); Monocytes # 0.2 K/mm3 (0.1-1.0); Monocytes % 4.5 % (1.7-9.3); Neutrophils # 3.2 K/mm3 (1.8-7.8); Neutrophils % 63.2 % (37.0-80.0); Platelet Count 208 K/mm3 (142-424); Red Blood Count 5.03 M/mm3 (4.20-5.40); Red Cell Distribution Width 13.7 % (11.5-17.5); White Blood Count 5.1 K/mm3 (4.8-10.8)
[2024-04-14 20:57] LABS: 25-OH Vitamin D, Total 44.2 ng/mL (30-100)
[2024-04-14 21:16] LABS: Alanine Aminotransferase 21 U/L (12-78); Albumin Level 4.6 g/dl (3.5-5.0); Albumin/Globulin Ratio 1.6 (1.1-1.8); Alkaline Phosphatase 175 U/L (38-126); Anion Gap 8.4 mEq/L (5-15); Aspartate Amino Transferase 31 U/L (14-36); Bilirubin,Total 0.9 mg/dl (0.2-1.3); Blood Urea Nitrogen 12 mg/dl (7-17); Calcium 9.9 mg/dl (8.4-10.2); Carbon Dioxide 28 mmol/L (22.0-30.0); Chloride 109 mmol/L (98-107); Chol/HDL Ratio 2.9 (1-3.5); Cholesterol 228 mg/dl (140-200); Estimated Glomerular Filt Rate 103 ml/min (>60); GFR (African American) 124 ML/MIN (>60); Globulin 2.8 g/dL (1.3-3.2); Glucose 93 mg/dl (74-100); HDL Cholesterol 80 mg/dl (40-60); Potassium 4.4 mmoL/L (3.5-5.1); Sodium 141 mmol/L (136-145); Total Protein,Serum 7.4 g/dl (6.3-8.2); Triglycerides 183 mg/dl (30-150); VLDL Cholesterol 37 mg/dL (0-40)
[2024-04-14 21:39] LABS: Direct LDL Cholesterol 92.91 mg/dL (100-129)
[2024-04-14 21:46] LABS: Thyroid Stimulating Hormone 1.92 uIU/mL (0.465-4.68)
[2024-04-14 22:05] LABS: Vitamin B12 482 pg/mL (239-931)
[2024-04-14 22:54] LABS: Hemoglobin A1C 6.7 % (4.0-6.0)
== END 2024-04-14 23:59 | disposition home or self-care (01) ==
LOC: LAB.DROPOF 04-15 10:06
PROVIDERS: PCP Nurse Practitioner; Visit Provider Nurse Practitioner
DX: J44.9 Chronic obstructive pulmonary disease, unspecified (principal); E55.9 Vitamin D deficiency, unspecified; F41.8 Other specified anxiety disorders; Z72.0 Tobacco use
CPT/HCPCS: 80050; 80053; 80061; 82306; 82607; 83036; 84443; 85025

== ENCOUNTER 2024-10-01 10:56 | Outpatient (CLI) | payer OTHER, SELFPAY ==
[2024-10-01 19:11] LABS: Basophils % 0.3 % (0.1-2.0); Eosinophils # 0.2 K/mm3 (0.0-0.4); Eosinophils % 2.5 % (0.1-12.0); Hematocrit 46.2 % (37.0-47.0); Lymphocytes # 1.4 K/mm3 (0.7-4.5); Lymphocytes % 22.9 % (10-50); Mean Corpuscular HGB Conc 32.5 g/dL (31.8-35.4); Mean Corpuscular Hemoglobin 30.9 pg (27.0-31.2); Mean Corpuscular Volume 95.3 fl (81-99); Mean Platelet Volume 11.9 fl (7.4-10.4); Monocytes # 0.3 K/mm3 (0.1-1.0); Monocytes % 5.3 % (1.7-9.3); Neutrophils # 4.1 K/mm3 (1.8-7.8); Neutrophils % 68.8 % (37.0-80.0); Platelet Count 255 K/mm3 (142-424); Red Blood Count 4.85 M/mm3 (4.20-5.40); Red Cell Distribution Width 13.2 % (11.5-17.5)
[2024-10-01 20:13] LABS: Alanine Aminotransferase 19 U/L (12-78); Albumin Level 4.7 g/dl (3.5-5.0); Alkaline Phosphatase 157 U/L (38-126); Anion Gap 11.7 mEq/L (5-15); Aspartate Amino Transferase 26 U/L (14-36); Bilirubin,Total 0.9 mg/dl (0.2-1.3); Blood Urea Nitrogen 17 mg/dl (7-17); Calcium 10.1 mg/dl (8.4-10.2); Carbon Dioxide 24 mmol/L (22.0-30.0); Chloride 109 mmol/L (98-107); Estimated Glomerular Filt Rate 86 ml/min (>60); GFR (African American) 104 ML/MIN (>60); Globulin 2.4 g/dL (1.3-3.2); Glucose 101 mg/dl (74-100); HDL Cholesterol 86 mg/dl (40-60); Potassium 4.7 mmoL/L (3.5-5.1); Sodium 140 mmol/L (136-145); Total Protein,Serum 7.1 g/dl (6.3-8.2)
[2024-10-01 20:15] LABS: Chol/HDL Ratio 2.4 (1-3.5); Cholesterol 208 mg/dl (140-200); Triglycerides 105 mg/dl (30-150); VLDL Cholesterol 21 mg/dL (0-40)
[2024-10-01 20:24] LABS: Direct LDL Cholesterol 82.12 mg/dL (100-129)
[2024-10-01 20:32] LABS: Hemoglobin A1C 5.5 % (4.0-6.0)
[2024-10-01 20:39] LABS: 25-OH Vitamin D, Total 31.8 ng/mL (30-100)
[2024-10-01 20:44] LABS: Thyroid Stimulating Hormone 1.42 uIU/mL (0.465-4.68)
[2024-10-01 21:03] LABS: Vitamin B12 538 pg/mL (239-931)
== END 2024-10-01 23:59 | disposition home or self-care (01) ==
LOC: LAB.DROPOF 10-02 12:05
PROVIDERS: PCP Nurse Practitioner; Visit Provider Nurse Practitioner
DX: J44.9 Chronic obstructive pulmonary disease, unspecified (principal); E55.9 Vitamin D deficiency, unspecified; F41.8 Other specified anxiety disorders
CPT/HCPCS: 80053; 80061; 82306; 82607; 83036; 84443; 85025

== ENCOUNTER 2025-01-26 15:11 | Outpatient (CLI) | payer OTHER, SELFPAY ==
--- OUTSIDE RECORDS SUMMARY | 2025-01-27 07:29 | XMS_ITS | Clinical Summary ---
Author Organization [facility] Address [address] [facility] [address] [place], [place] [address] Phone Care Team Providers Care Fleet Dispatch Manager Name Role Phone Nona Reinoso RN Unavailable [phone] Lj Mary MD Unavailable [phone] Annabelle Kwon MD Unavailable [phone] Jakob Shi Primary Care Provider [phone] Lj MerlosW Unavailable [phone] Allergies No known active allergies Medications albuterol (PROVENTIL HFA;VENTOLIN HFA) 90 mcg/actuation Inhl HFA Aerosol Inhaler Inhale 2 Puffs into the lungs every 6 hours as needed for Wheezing. Active cetirizine (ZYRTEC) 10 mg Oral Tablet Take by mouth daily. Active QUEtiapine (SEROQUEL) 50 mg Oral Tablet Take 50 mg by mouth daily. Active ibuprofen (ADVIL;MOTRIN) 200 mg Oral Tablet Take 3 Tablets by mouth every 6 hours as needed for Pain. 3 Active Additional Information Patient not taking.Reason: Pt electing to not take the medication, Reported on 08/18/2024 LORazepam (ATIVAN) 1 mg Oral TabletIndicatio ns:Anxiety and depression Take 1 Tablet by mouth every 12 hours as needed for anxiety. 60 Tablet 3 Active acetaminophen (TYLENOL) 500 mg Oral Tablet Take by mouth every 4 hours as needed for Pain. Active sertraline (ZOLOFT) 25 mg Oral TabletIndicatio ns:Anxiety and depression TAKE 2 TABLETS BY MOUTH ONCE DAILY 60 Tablet 1 4 Active ANORO ELLIPTA 62.5-25 mcg/actuation Inhl Disk with Device INHALE 1 PUFF DAILY FOR 90 DAYS 5 Active Cholecalciferol , Vitamin D3, 125 mcg (5,000 unit) Oral Tablet Take 125 mcg by mouth. 2 Active polyethylene glycol (GOLYTELY) 236-22.74-6.74 -5.86 gram Oral Recon Soln Take as prescribed by doctor's office. 4000 mL 5 Active Active Problems Problem Noted Date Diagnosed Date Screening for colon cancer 08/04/2021 Overview (08/04/2021): Added automatically from request for surgery [id number] Iron deficiency anemia due to chronic blood loss 05/12/2021 Iron malabsorption 05/12/2021 Pelvic mass 05/03/2021 Cancer of right colon 04/22/2021 Cancer Staging:Pathologic stage from 04/02/2021:Stage IIA(pT3, pN0, cM0) - Signed by Annabelle Kwon MD on 04/22/2021 Encounters Date Type Department Care Team Description 01/01/2025 Telephone [facility] GASTRO [facility] [address], 3RD [place] [address] Yanely Vargas MD Colonoscopy 12/31/2024 Telephone [facility]cology [place] [id number] Annabelle Kwon MD Other (Referral for Gastro ) from Last 3 Months Surgical History Surgery Date Site/Laterality Comments CHOLECYSTECTOMY KIDNEY SURGERY abcess on kidney COLECTOMY 04/02/2021 Right SMALL INTESTINE SURGERY 04/02/2021 COLONOSCOPY 08/29/2021 N/A Colonoscopy with polypectomies via cold snare; Surgeon: Yanely Vargas MD; Location: [facility] ENDOSCOPY; Service: Endoscopy APPENDECTOMY 07/23/2020 - 07/22/2021 with colectomy HYSTERECTOMY, TOTAL ABDOMINAL 08/30/2022 Abdomen/Bilateral TOTAL ABDOMINAL HYSTERECTOMY, BILATERAL SALPINGO- OOPHORECTOMY; Surgeon: Lj Mary MD; Location: [facility]IN OR; Service: Gynecology Medical History Medical History Date Comments Colon cancer (HCC) s/p colectomy and chemo, last chemo 07-26-21 Anxiety COPD (chronic obstructive pu lmonary disease) (HCC) Headache Post-operative nausea and vomiting Motion sickness Family History Medical History Relation Name Comments Cancer Brother 1 liver Colon Cancer Brother 2 started in lung but also had in colon Lung Cancer Brother 2 Colon Cancer Maternal Aunt Colon Cancer Maternal Uncle 6 girls and 1 boy with colon cancer Breast Cancer Sister Relation Name Status Comments Brother 1 Brother 2 Maternal Aunt Maternal Uncle Sister Alive Social History Tobacco Use Types Packs/Day Years Used Date Smoking Tobacco: Every Day Cigarettes 0.5 41.4 Started: 08/23/1983 Smokeless Tobacco: Never Tobacco Cessation:Ready to Q uit: Not Asked; Counseling Given: Not Answered Alcohol Use Standard Drinks/Week Comments Never 0 (1 standard drink = 0.6 oz pur e alcohol) PHQ-2 Answer Date Recorded PHQ-2 Total Score 0 08/17/2022 Sexually Active Control Partners Comments Not Currently Comments No Sex and Gender Information Value Date Recorded Sex Assigned at Not on file Legal Sex Female 4:23 AM EDT Gender Identity Not on file Sexual Orientation Not on file Obstetrics History Para Term AB IAB SAB Ectopic Multiple Livin g Live Births 0 0 0 0 0 0 0 0 0 0 0 Last Filed Vital Signs Vital Sign Reading Time Taken Comments Blood Pressure 145/82 08/18/2024 10:46 AM EST Pulse 89 08/18/2024 10:46 AM EST Temperature 36.9 C (98.4 F) 08/18/2024 10:46 AM EST Respiratory Rate 16 08/18/2024 10:46 AM EST Oxygen Saturation 97% 08/18/2024 10:46 AM EST Inhaled Oxygen Concentration - - Weight 65.9 kg (145 lb 4.8 oz) 08/18/2024 10:46 AM EST Height 167.6 cm (5' 6 ) 08/18/2024 10:46 AM EST Body Mass Index 23.45 08/18/2024 10:46 AM EST Plan of Treatment Upcoming Encounters Date Type Department Care Team (Late st Contact Info) Description 03/03/2025 2:05 PM EDT Appointment [facility] [address] [place] [address] Yanely Vargas MD [address] [place], [place] [id number] 08/14/2025 8:30 AM EST Appointment [address] [place] [address] Annabelle Kwon MD [address] [place] [address] [address] [place], [place] [id number] 08/17/2025 8:15 AM EST Appointment [address] [place] [address] 08/17/2025 8:30 AM EST Appointment [address] [place] [address] Annabelle Kwon MD [address] [place] [address] [address] [place], [place] [id number] Health Maintenance Due Date Last Done Comments Annual Wellness Exam 1969 Hepatitis B Vaccine (1 of 3 - 19+ 3-dose series) 1985 Pneumococcal Vaccine 50+ (1 of 2 - PCV) 1985 Breast Cancer Screening 2006 Zoster (2 of 2) 11/22/2021 09/27/2021 COVID-19 Vaccine ( season) 2024 04/13/2022, 11/01/2020, 10/04/2020 Influenza Vaccine (#1) 2025 09/27/2021 Low Dose Lung Cancer Screening 08/15/2025 08/15/2024, 11/16/2023, 08/18/2023, Additional history exists DTaP/TDaP/Td (2 - Td or Tdap) 09/28/2031 09/27/2021 Colon Cancer Screening Discontinued Colonoscopy Discontinued 08/29/2021 Cologuard Discontinued FIT Discontinued Meningococcal B Vaccine Aged Out No l onger eligible based on patient's age to complete this topic Sigmoidoscopy Discontinued Virtual Colonography Discontinued Goals Goal Patient Goal Type Associated Problems Recent Progress Patient-Stated? Author Knowledge Deficit General No Tg Dockery APRN Note: Chemotherapy education provided and reviewed. Procedures Procedure Name Priority Date/Time Associated Diagnosis Comments CT CHEST ABDOMEN PELVIS W CONTRAST Routine 08/15/2024 12:55 PM EST History of colon cancer, stage II [facility] COLONOSCOPY Routine 08/29/2021 8:35 AM EST from Last 3 Months or Most Recently Relevant to Health Maintenance Results * CT CHEST ABDOMEN PELVIS W CONTRAST (08/15/2024 12:55 PM EST) Anatomical Region Laterality Modality Abdomen, Chest, Pelvis Computed Tomography 08/15/2024 12:5 5 PM EST Impressions 08/15/2024 1:16 PM EST No evidence of disease recurrence. - Note: Radiology results need to be interpreted within a comprehensive clinical context. If you have questions about the radiology report, please contact the office of the ordering clinician. Narrative 08/15/2024 1:[address] CHEST, ABDOMEN, AND PELVIS WITH CONTRAST, 08/15/2024 12:55 PM CLINICAL HISTORY: Z85.038-Personal history of other malignant neoplasm of large [id number]-CM. COMPARISON: 11/16/2023, 08/18/2023 PROCEDURE COMMENTS: Multidetector CT chest abdomen and pelvis with multiplanar reconstructions. Isovue 370 IV contrast given as recorded in EPIC. Dose 1 : CT DLP Total : 388.01 mGycm DLP Spiral Max : 235.01 mGycm Maximum CTDI Vol : 5.47 mGy FINDINGS: CT CHEST: No mediastinal or hilar lymphadenopathy. Previously described right middle lobe opacity/infiltrate has essentially resolved. No new or enlarging pulmonary nodules or masses. CT ABDOMEN AND PELVIS: Visible solid and hollow viscera unremarkable. No mass or acute inflammatory process. No bowel obstruction or free air. No abnormal fluid or adenopathy in the pelvis. No evidence of appendicitis. No acute osseous lesion. Procedure Note Joshua Dwyer MD - 08/15/2024 CT CHEST, ABDOMEN, AND PELVIS WITH CONTRAST, 08/15/2024 12:55 PM CLINICAL HISTORY: Z85.038-Personal history of other malignant neoplasm oflarge [id number]-GAK-[id number]-CM. COMPARISON: 11/16/2023, 08/18/2023 PROCEDURE COMMENTS: Multidetector CT chest abdomen and pelvis withmultiplanar reconstructions. Isovue 370 IV contrast given as recorded in EPIC. Dose 1 : CT DLP Total : 388.01 mGycm DLP Spiral Max : 235.01 mGycm Maximum CTDI Vol : 5.47 mGy FINDINGS: CT CHEST: No mediastinal or hilar lymphadenopathy. Previously describedright middle lobe opacity/infiltrate has essentially resolved. No new orenlarging pulmonary nodules or masses. CT ABDOMEN AND PELVIS: Visible solid and hollow viscera unremarkable. Nomass or acute inflammatory process. No bowel obstruction or free air. No abnormal fluid or adenopathy in the pelvis. No evidence ofappendicitis. No acute osseous lesion. IMPRESSION: No evidence of disease recurrence. - Note: Radiology results need to be interpreted within a comprehensiveclinical context. If you have questions about the radiology report, please contactthe office of the ordering clinician. Annabelle Kwon MD IMG CT ORDERABLES Final Resul t * [facility] COLONOSCOPY (08/29/2021 8:35 AM EST) 08/29/2021 8:35 AM EST Impressions [facility] - 08/29/2021 8:44 AM EST Normal mucosa in the terminal ileum. Previous Surgery in the distal transverse colon. Polyps (4 mm to 6 mm) in the distal transverse colon. (Polypectomy). Polyp (7 mm) in the descending colon. (Polypectomy). Polyps (5 mm to 10 mm) in the sigmoid colon. (Polypectomy). Otherwise normal colonoscopy. Plan: Await pathology results Colonoscopy in 3 years. Recommend the use of a pediatric colonoscope for future colonoscopies. Patient to follow-up with Primary Care Physician and/or Referring Physician This section is an excerpt of the full report. Yanely Vargas MD GI PROCEDURE ORDERAB LES Final Result [facility] [address] [place] [address] from Last 3 Months or Most Recently Relevant to Health Maintenance Insurance [facility] CHOICE PLUS [id number] Advance Directives For more information, please contact: [phone] * Full Code (Latest Code Status on File) Date Activated Date Inactivated Comments 08/30/2022 3:22 PM 09/01/2022 5:12 PM Care Teams Fleet Dispatch Manager Relationship Specialty Start Date End Date Jakob Shi [address] [place] [address] [address] [place] [address] PCP - General Family Medicine 09/02/21 Nona Reinoso RN Oncology Nurse Navigator 04/22/21 Lj Mary MD [address] [place] [address] [place] [address] Consulting Physician Obstetrics & Gynecology-Gynecologic Oncology 04/22/21 Annabelle Kwon MD [address] [place] [address] Medical Oncologist Internal Medicine-Hematology and Oncology 05/12/21 Lj Merlos LCSW Pecan Mallow Dipper Pecan Mallow Dipper 09/05/21
--- OUTSIDE RECORDS SUMMARY | 2025-01-27 07:29 | XMS_ITS | Encounter Summary ---
Author Organization [place] [address] Care Team Providers Care Quality Analyst/Technical Writer Name Role Phone Nona Reinoso RN Unavailable [phone] Lj Mary MD Unavailable [phone] Annabelle Kwon MD Unavailable [phone] Jakob Shi Primary Care Provider [phone] Lj MerlosW Unavailable [phone] Reason for Visit * Reason Onset Date Comments Other 12/31/2024 Referral for Gas tro Encounter Details Date Type Department Care Team (Late st Contact Info) Description 12/31/2024 Telephone [facility] [place] [address] Annabelle Kwon MD [address] [place], [place] [id number] Other (Referral for Gastro ) Social History Tobacco Use Types Packs/Day Years Used Date Smoking Tobacco: Every Day Cigarettes 0.5 41.4 Started: 08/23/1983 Smokeless Tobacco: Never Alcohol Use Standard Drinks/Week Comments Never 0 (1 standard drink = 0.6 oz pur e alcohol) PHQ-2 Answer Date Recorded PHQ-2 Total Score 0 08/17/2022 Sexually Active Control Partners Comments Not Currently Comments No Sex and Gender Information Value Date Recorded Sex Assigned at Not on file Legal Sex Female 4:23 AM EDT Gender Identity Not on file Sexual Orientation Not on file documented as of this encounter Miscellaneous Notes * Telephone Encounter - Carlie Traore RN - 12/31/2024 3:56 PM EDT Sent a message to Dr. Vargas. * Telephone Encounter - Lilli Prince NA - 12/31/2024 3:42 PM EDT Reason for call: Pt called stating that provider wanted her to have a referral to gastro and to have a colonoscopy Pt stated she never heard anything from them to schedule Pt asking for specific location of where she needs to be going so she can schedule Pt requesting a call back today Preferred call back number:[phone] documented in this encounter Plan of Treatment Upcoming Encounters Date Type Department Care Team (Late st Contact Info) Description 03/03/2025 2:05 PM EDT Appointment [facility] [address] [facility] [place] [address] Yanely Vargas MD [address] [place] [address] 08/14/2025 8:30 AM EST Appointment [address] [place] [address] Annabelle Kwon MD [address] [place] [address] [place] [address] 08/17/2025 8:15 AM EST Appointment [address] [place] [address] 08/17/2025 8:30 AM EST Appointment [address] [place] [address] Annabelle Kwon MD [address] [facility] [place] [address] documented as of this encounter Goals Goal Patient Goal Type Associated Problems Recent Progress Patient-Stated? Author Knowledge Deficit General No Tg Dockery APRN Note: Chemotherapy education provided and reviewed. documented as of this encounter Visit Diagnoses Not on filedocumented in this encounter Care Teams Quality Analyst/Technical Writer Relationship Specialty Start Date End Date Jakob Shi [address] [facility] [address] [place] [address] PCP - General Family Medicine 09/02/21 Nona Reinoso, RN Oncology Nurse Navigator 04/22/21 Lj Mary MD [address] [place] [address] [place] [address] Consulting Physician Obstetrics & Gynecology-Gynecologic Oncology 04/22/21 Annabelle Kwon MD [address] [place] [address] Medical Oncologist Internal Medicine-Hematology and Oncology 05/12/21 Lj Merlos LCSW Real Estate Legal Assistant Real Estate Legal Assistant 09/05/21 documented as of this encounter
--- OUTSIDE RECORDS SUMMARY | 2025-01-27 07:29 | XMS_ITS | Encounter Summary ---
Author Organization [place] [address] Care Team Providers Care Director Of Employee Development Name Role Phone Nona Reinoso RN Unavailable [phone] Lj Mary MD Unavailable [phone] Annabelle Kwon MD Unavailable [phone] Jakob Shi Primary Care Provider [phone] Lj MerlosW Unavailable [phone] Reason for Referral * Surgical (Routine) - Pending Review Specialty Diagnoses / Procedures Referred By Milena christianson Referred To Contact Gastroenterology Diagnoses Cancer of right colon (HCC) Screening for colon cancer Procedures COLONOSCOPY ND COLORECTAL SCRN; HI RISK IND ND COLONOSCOPY FLX W/ENDOSCOPIC MUCOSAL RESECTION Yanely Vargas MD [address] [place] [address] Phone: tel: fax: Referral ID Status Reason Start Date Expiration Date V isits Requested Visits Authorized [id number] Pending Review 01/06/2025 01/06/2026 1 1 Reason for Visit * Reason Onset Date Comments Colonoscopy 01/01/2025 Encounter Details Date Type Department Care Team (Late st Contact Info) Description 01/01/2025 Telephone [facility] [address]RD [place] [address] Yanely Vargas MD [address] [place] [address] Colonoscopy Social History Tobacco Use Types Packs/Day Years [...] on file documented as of this encounter Ordered Prescriptions Prescription Sig Dispense Quantity Refills Last Filled Start Date End Date polyethylene glycol (GOLYTELY) 236-22.74-6.74 -5.86 gram Oral Recon Soln Take as prescribed by doctor's office. 4000 mL 01/06/2025 documented in this encounter Miscellaneous Notes * Addendum Note - Desirae Wilkerson RN - 01/06/2025 1:04 PM EDTAddended by: DESIRAE WILKERSON on: 01/06/2025 01:04 PM Modules accepted: Orders * Telephone Encounter - Desirae Wilkerson RN - 01/06/2025 12:53 PM EDT Have you ever had a colonoscopy? yes 2021 PCP/Referring Jakob Shi Referring: What are the signs and symptoms? Npt Is there a family history of the problem? No What are the patient's allergies? No Known Allergies What is the patient's personal history? Smoker What is the patient's surgical history? Past Surgical History: Procedure Laterality Date APPENDECTOMY 2020 with colectomy CHOLECYSTECTOMY COLECTOMY Right 04/02/2021 COLONOSCOPY N/A 08/29/2021 Colonoscopy with polypectomies via cold snare; Surgeon: Yanely Vargas MD; Location: [facility] ENDOSCOPY; Service: Endoscopy HYSTERECTOMY, TOTAL ABDOMINAL Bilateral 08/30/2022 TOTAL ABDOMINAL HYSTERECTOMY, BILATERAL SALPINGO- OOPHORECTOMY; Surgeon: Lj Mary MD; Location: [facility] OR; Service: Gynecology KIDNEY SURGERY abcess on kidney SMALL INTESTINE SURGERY 04/02/2021 What medications is the patient taking? Prior to Admission medications Medication Sig Start Date End Date Last Dose Authorizing Provider acetaminophen (TYLENOL) 500 mg Oral Tablet Take by mouth every 4 hours as needed for Pain. Provider, Historical albuterol (PROVENTIL HFA;VENTOLIN HFA) 90 mcg/actuation Inhl HFA Aerosol Inhaler Inhale 2 Puffs into the lungs every 6 hours as needed for Wheezing. Provider, Historical ANORO ELLIPTA 62.5-25 mcg/actuation Inhl Disk with Device INHALE 1 PUFF DAILY FOR 90 DAYS 08/06/24 Provider, Historical cetirizine (ZYRTEC) 10 mg Oral Tablet Take by mouth daily. Provider, Historical Cholecalciferol, Vitamin D3, 125 mcg (5,000 unit) Oral Tablet Take 125 mcg by mouth. 04/04/22 Provider, Historical ibuprofen (ADVIL;MOTRIN) 200 mg Oral Tablet Take 3 Tablets by mouth every 6 hours as needed for Pain. Patient not taking: Reported on 10/12/2022 09/01/22 Lj Mary MD LORazepam (ATIVAN) 1 mg Oral Tablet Take 1 Tablet by mouth every 12 hours as needed for anxiety. 07/03/23 Annabelle Kwon MD QUEtiapine (SEROQUEL) 50 mg Oral Tablet Take 50 mg by mouth daily. Provider, Historical sertraline (ZOLOFT) 25 mg Oral Tablet TAKE 2 TABLETS BY MOUTH ONCE DAILY 06/03/24 Annabelle Kwon MD Do you currently have chest pain? No Are you currently being seen by a inorganic chemistry professor for a new problem? No Hold Blood Thinner days Do you take Adipex/Phentermine (dulaglutide (Trulicity), exenatide ER (Bydureon BCise), semaglutide(Ozempic, Wegovy), tirzepatide (mounjaro, zepbound)? no If patient answers yes instructed to hold 7 days: n/a Do you take Steglatro (Ertugliflozin)? no If patient answers yes instructed to hold 4 days n/a Do you take Stop Jardiance (Empagliflozin), Invokana (Canagliflozin) & Farxiga (Dapagliflozin),Naltrexone/Burproprione (Contrave) no If patient answers yes instructed to hold 3 days n/a Any additional instructions: Insurance [facility] What prep is used? Marlyn tab sent Scheduled @ [facility] w/t KJ on 03/03 @ 2:05 dt only could do certain days Do you have sleep apnea? N/a Do you have an abdominal aortic aneurysm? N/a * Telephone Encounter - Randee Gabriel, Clerical Staff - 01/01/2025 8:59 AM EDT tried to call pt LVM to call back * Telephone Encounter - Randee Gabriel, Clerical Staff - 01/01/2025 8:55 AM EDT Images from the original note were not included. Yanely Vargas MD P [facility] Clinical [place]; Randee Gabriel, Clerical Staff Sure. Randee, please arrange for colonoscopy with me. Diagnosis is personal history of colon cancer. Thanks. documented in this encounter Plan of Treatment Upcoming Encounters Date Type Department Care Team (Late st Contact Info) Description 03/03/2025 2:05 PM EDT Appointment [facility] [address] [place] [address] Yanely Vargas MD [address] [place] [address] 08/14/2025 8:30 AM EST Appointment [address] [place] [address] Annabelle Kwon MD [address] [facility] [place] [place] [address] 08/17/2025 8:15 AM EST Appointment [address] [place] [address] 08/17/2025 8:30 AM EST Appointment [place] [address] [place] [address] Annabelle Kwon MD [address] [facility] [place] [address] Scheduled Orders Name Type Priority Associated Diagnoses Orde r Schedule COLONOSCOPY Endoscopy Routine Cancer of right colon (HCC) Screening for colon cancer 1 Occurrences starting 01/06/2025 until 01/06/2026 documented as of this encounter Goals Goal Patient Goal Type Associated Problems Recent Progress Patient-Stated? Author Knowledge Deficit General Tg Collins APRN Note: Chemotherapy education provided and reviewed. documented as of this encounter Visit Diagnoses Diagnosis Cancer of right colon (HCC)- Primary Malignant neoplasm of ascending colon Screening for colon cancer Special screening for malignant neoplasms, colon documented in this encounter Care Teams Director Of Employee Development Relationship Specialty Start Date End Date Jakob Shi Replaced by [facility] [address] [place] [address] PCP - General Family Medicine 09/02/21 Nona Reinoso RN Oncology Nurse Navigator 04/22/21 Lj Mary MD [address] [facility] [place] [address] Consulting Physician Obstetrics & Gynecology-Gynecologic Oncology 04/22/21 Annabelle Kwon MD [address] [facility] [place] [address] Medical Oncologist Internal Medicine-Hematology and Oncology 05/12/21 Lj Merlos LCSW Auger Supervisor Auger Supervisor 09/05/21 documented as of this encounter
--- OUTSIDE RECORDS SUMMARY | 2025-01-27 07:29 | XMS_ITS ---
Author Organization [facility] Address [address] [facility] [address] [place], [place] [address] Phone Care Team Providers Care Gut Snatcher Name Role Phone Nona Reinoso RN Unavailable [phone] Lj Mary MD Unavailable [phone] Annabelle Kwon MD Unavailable [phone] Jakob Shi Primary Care Provider [phone] Lj Merlos [facility] Unavailable [phone] Active Problems Problem Noted Date Diagnosed Date Screening for colon cancer 08/04/2021 Overview (08/04/2021): Added automatically from request for surgery [id number] Iron deficiency anemia due to chronic blood loss 05/12/2021 Iron malabsorption 05/12/2021 Pelvic mass 05/03/2021 Cancer of right colon 04/22/2021 Cancer Staging:Pathologic stage from 04/02/2021:Stage IIA(pT3, pN0, cM0) - Signed by Annabelle Kwon MD on 04/22/2021 Current Treatment and Therapy Plans No current plan information found. Past Treatment and Therapy Plans ONCOLOGY TREATMENT Plan Name Start Date Discontinue Date Treatment Medications Discontinue Reason Plan Provider Cycles ONC CapeOx (850/100) Q21D x 4 05/23/2021 08/24/2021 oxaliplatin (ELOXATIN) chemo infusion Therapy Complete Annabelle Kwon MD 4 of 4 cycles started
--- OUTSIDE RECORDS SUMMARY | 2025-01-27 07:29 | XMS_ITS | Encounter Summary ---
Author Organization [place] [address] Care Team Providers Care Operations Intelligence Superintendent Name Role Phone Nona Reinoso RN Unavailable [phone] Lj Mary MD Unavailable [phone] Annabelle Kwon MD Unavailable [phone] Jakob Shi Primary Care Provider [phone] Lj Merlos LCSW Unavailable [phone] Encounter Details Date Type Department Care Team (Late st Contact Info) Description 07/26/2021 Refill [facility] [place], [place] [id number] Carlie Kearney APRN [address] [place] [address] [phone] Social History Tobacco Use Types Packs/Day Years Used Date Smoking Tobacco: Every Day Cigarettes Smokeless Tobacco: Never Alcohol Use Standard Drinks/Week Comments Never 0 (1 standard drink = 0.6 oz pur e alcohol) PHQ-2 Answer Date Recorded PHQ-2 Total Score 0 04/28/2021 Sexually Active Control Partners Comments Not Currently Comments No Sex and Gender Information Value Date Recorded Sex Assigned at Not on file Legal Sex Female 4:23 AM EDT Gender Identity Not on file Sexual Orientation Not on file COVID-19 Exposure Response Date Recorded In the last month, have you been in contact with someone who was confirmed or suspected to have Coronavirus / COVID-19? No / Unsure 07/26/2021 9:12 AM EST documented as of this encounter Ordered Prescriptions Prescription Sig Dispense Quantity Refills Last Filled Start Date End Date LORazepam (ATIVAN) 1 mg Oral Tablet Take 1 Tablet by mouth every 8 hours as needed for Anxiety. 60 Tablet 07/26/2021 08/25/2021 documented in this encounter Plan of Treatment Upcoming Encounters Date Type Department Care Team (Late st Contact Info) Description 03/03/2025 2:05 PM EDT Appointment [facility] [address] [place] [address] Yanely Vargas MD [address] [place] [address] 08/14/2025 8:30 AM EST Appointment [place] [address] [place] [address] Annabelle Kwon MD [address] [facility] [place] [address] 08/17/2025 8:15 AM EST Appointment [address] [place] [address] 08/17/2025 8:30 AM EST Appointment [address] [place] [address] Annabelle Kwon MD [address] [facility] [place] [address] documented as of this encounter Goals Goal Patient Goal Type Associated Problems Recent Progress Patient-Stated? Author Knowledge Deficit General No Tg Dockery APRN Note: Chemotherapy education provided and reviewed. documented as of this encounter Visit Diagnoses Not on filedocumented in this encounter Discontinued Medications Medication Sig Discontinue Reason Start Date End Da te LORazepam (ATIVAN) 0.5 mg Oral Tablet Take 1 Tablet by mouth every 8 hours as needed for Anxiety. Reorder 06/14/2021 07/26/2021 documented as of this encounter Care Teams Operations Intelligence Superintendent Relationship Specialty Start Date End Date Jakob Shi [address] [facility] [address] [place] [id number] PCP - General Family Medicine 09/02/21 Nona Reinoso, RN Oncology Nurse Navigator 04/22/21 Lj Mary MD [address] [facility] [place] [address] Consulting Physician Obstetrics & Gynecology-Gynecologic Oncology 04/22/21 Annabelle Kwon MD [address] [place] [address] Medical Oncologist Internal Medicine-Hematology and Oncology 05/12/21 Lj Merlos LCSW Shoe Lining Fitter Shoe Lining Fitter 09/05/21 documented as of this encounter
== END 2025-01-26 23:59 | disposition home or self-care (01) ==
LOC: LAB.DROPOF 01-27 07:28
PROVIDERS: PCP Nurse Practitioner; Visit Provider Nurse Practitioner
DX: M54.9 Dorsalgia, unspecified (principal)
CPT/HCPCS: 87086